=== PATIENT | female | born 1960 | race Caucasian/White ===

== ENCOUNTER 2019-04-13 13:30 | Outpatient (CLI) | payer MEDICARE, SELFPAY ==
--- NOTE | ~2019-04-13 | MM_ITS ---
EXAMINATION: MM screening kayla BI w mark HISTORY: Screening mammogram TECHNIQUE: Craniocaudal and mediolateral oblique 3-D tomosynthesis images were obtained and synthetic 2-D images were generated. CAD analysis was submitted and interpreted. COMPARISON: Comparison to multiple prior studies sequentially, with oldest reviewed study dated 11/14. BREAST PARENCHYMAL COMPOSITION: Comparison to multiple prior studies sequentially, with oldest review ed study dated 11/29/2014. FINDINGS: Breast composed of scattered areas of fibroglandular density. Stable postsurgical change mi d outer aspect of the right breast. There is no evidence of suspicious mass, calcification, or los ectural distortion to suggest malignancy in either breast. There has been no suspicious interval fabian ge. IMPRESSION: 1. No mammographic evidence of malignancy. 2. Recommend routine screening mammography in one year. BI-RADS Category 2: Benign finding(s). Reviewed, dictated and finalized at location A. 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
== END 2019-04-13 13:31 | disposition home or self-care (01) ==
PROVIDERS: PCP Family Medicine; Visit Provider Obstetrics & Gynecology
DX: Z12.31 Encounter for screening mammogram for malignant neoplasm of breast (principal)
CPT/HCPCS: 77063; 77067

== ENCOUNTER 2019-05-01 10:00 | Emergency (ER) | payer MEDICARE, SELFPAY ==
--- NOTE | ~2019-05-01 | XR_ITS ---
EXAMINATION: XR knee LT min 4V DATE: 05/01/2019 10:22 INDICATION: Anterior left knee pain post fall TECHNIQUE: Anteroposterior, 2 oblique and crosstable lateral views of the left knee were obtained COMPARISON: None. FINDINGS: Alignment is normal. No fracture. Tiny superior and inferior patellar marginal osteophytes. Small am ount of joint fluid at the suprapatellar pouch which is within normal limits and without evident laye ring lipohemarthrosis. Soft tissues are unremarkable. IMPRESSION: 1. No acute osseous abnormality. Reviewed, dictated and finalized at location A.
--- NOTE | ~2019-05-01 | XR_ITS ---
EXAMINATION: XR hand LT min 3V, XR wrist LT min 3V DATE: 05/01/2019 10:22 INDICATION: Diffuse left hand and wrist pain post fall TECHNIQUE: 1. Posteroanterior, ulnar deviation, oblique, and lateral views of the left wrist were obtained. 2. Dorsal palmar, oblique and lateral views of the left hand were obtained. COMPARISON: None. FINDINGS: Volar plate and screw fixation at the distal left radius likely for old healed fracture with no resid ual deformity. There is an acute minimally displaced fracture at the radial styloid process which is beyond the screws of the prior fixation. No significant fracture gap or incongruity appreciated at th e distal articular surface. There is mild widening of the scapholunate interval but no evident abnorm al rotatory subluxation of the scaphoid or lunate. Minimal to mild polyarticular osteoarthritis at th e distal radioulnar, triscaphe and multiple interphalangeal joints with distal predominance. Tiny oss ific density dorsal to the proximal carpal row without definitive donor site. Soft tissue swelling ab out the wrist and carpus. IMPRESSION: 1. Minimally displaced intra-articular fracture at the radial styloid process peripheral to a prior v olar plate and screw fixation. 2. Tiny ossific density at the dorsal aspect of the triquetrum which could represent either a chronic loose body or heterotopic ossification related to old trauma or acute tiny fracture fragment which a t this location would most likely arising from the triquetrum. 3. Slight widening of the scapholunate interval and could not exclude injury to the scapholunate liga ment although there is no evident rotatory subluxation of the scaphoid or lunate. Reviewed, dictated and finalized at location A. IMPRESSION: 1. Minimally displaced intra-articular fracture at the radial styloid process p eripheral to a prior volar plate and screw fixation. 2. Tiny ossific density at the dorsal aspect of the triquetrum which could repr esent either a chronic loose body or heterotopic ossification related to old tr auma or acute tiny fracture fragment which at this location would most likely a rising from the triquetrum. 3. Slight widening of the scapholunate interval and could not exclude injury to the scapholunate ligament although there is no evident rotatory subluxation of the scaphoid or lunate.
[2019-05-01 09:55] VITALS: BP 165/110; PULSE 58; RESP 16; TEMP 36.6; O2SAT 100
--- NOTE | 2019-05-01 10:07 | ED.UPPEXIN ---
HPI - Extremity Injury (Upper) General Chief Complaint: Extremity Injury, Upper Stated Complaint: fall - wrist deformity Time Seen by Provider: 05/01/19 10:05 Source: patient Mode of arrival: EMS Limitations: no limitations History of Present Illness HPI narrative: A 59 y/o female pt presents to the ED, via EMS with c/o a fall while walking her dog outside this morning. Pt stated she tripped and fell face forward. Pt notes an abrasion to her upper lip that was bleeding on scene, but has since subsided. She also reports pain to her lt wrist, lt hand, lt knee. outside walking her dog tripped and denies LOC lt wrist into hand into lt thumb lt knee pain denies anticoagulation therapy hx of DM, HTN, hypercholesteremia, abrasions to lt knee no smoking occ drink Related Data Home Medications Medication Instructions Recorded Confirmed loratadine 10 mg BYMOUTH DAILY 02/16/19 03/28/19 potassium chloride 20 meq PO DAILY 02/22/19 03/28/19 Allergies Allergy/AdvReac Type Severity Reaction Status Date / Time adhesive Allergy Unknown Blister Verified 05/01/19 10:05 ciprofloxacin Allergy Unknown Other Verified 05/01/19 10:05 hydroxychloroquine Allergy Unknown Hives Verified 05/01/19 10:05 ibuprofen Allergy Unknown Muscle Pain Verified 05/01/19 10:05 metronidazole Allergy Unknown Other Verified 05/01/19 10:05 Quinolones Allergy Unknown Hives Verified 05/01/19 10:05 [facility] Social History Social History Social History: The patient lives in her own home in [place], [place]. She smoked for only a few months as a teenager. She consumes alcohol rarely and on social occasions, in moderation. No illicit drug use. 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 Faisal as her surrogate decision maker and is wishing to be a full code. Smoking status: Former smoker Tobacco type: cigarettes Second hand tobacco smoke exposure: No Additional smoking assessment comments: Smoked for two months as teenager Alcohol intake: current Drinks per week: 0 Substance use: former Substance use type: does not use Other substance usage details: former marijuana use Gender identity (if verbalized by the patient): Female Spiritual care concerns: No Agree to blood products: Yes Course Vital Signs Vital signs: Vital Signs Temperature 97.8 F 05/01/19 09:55 Pulse Rate 58 L 05/01/19 09:55 Respiratory Rate 16 05/01/19 09:55 Blood Pressure 165/110 H 05/01/19 09:55 Pulse Oximetry 100 05/01/19 09:55 Temperature 97.8 F 05/01/19 09:55 Pulse Rate 58 L 05/01/19 09:55 Respiratory Rate 16 05/01/19 09:55 Blood Pressure 165/110 H 05/01/19 09:55 Pulse Oximetry 100 05/01/19 09:55 Discharge Plan Discharge Prescriptions: No Action furosemide [Lasix] 20 mg tablet 20 mg PO DAILY PRN (Reason: edema) Qty: 90 RF: 1 glipizide 5 mg tablet 5 mg PO DAILY Qty: 90 RF: 1 levothyroxine 88 mcg tablet 88 mcg PO DAILY Qty: 90 RF: 1 montelukast [Singulair] 10 mg tablet 10 mg PO DAILY Qty: 90 RF: 3 trazodone 50 mg tablet 50 mg PO HS PRN (Reason: insomnia) Qty: 90 RF: 1 loratadine tablet 10 mg BYMOUTH DAILY RF: 0 ipratropium-albuterol 0.5 mg-3 mg(2.5 mg base)/3 mL solution for nebulization 3 ml INHALATION Q4H PRN (Reason: shortness of breath or wheezing) Qty: 90 RF: 0 albuterol sulfate 2.5 mg/0.5 mL solution for nebulization 2.5 mg INHALATION Q4H PRN (Reason: shortness of breath or wheezing) Qty: 30 RF: 0 (DME) blood-glucose meter Kit See Rx Instructions .ROUTE .MEDSUPPLY Qty: 1 RF: 0 (DME) lancets 33 gauge misc See Rx Instructions .ROUTE .MEDSUPPLY Qty: 100 RF: 0 (DME) Blood Glucose Test Strip See Rx Instructions .ROUTE .MEDSUPPLY Qty: 50 RF: 0 potassium chloride 20 mEq Tablet Extended Release 20 meq PO DAILY RF: 0 atorvastatin 20 mg tablet 20 mg PO DAILY Qty: 90 RF: 1 pantoprazole
--- NOTE | 2019-05-01 10:58 | ED.FALL ---
HPI - Fall General Chief Complaint: Extremity Injury, Upper Stated Complaint: fall - wrist deformity Time Seen by Provider: 05/01/19 10:05 Source: patient Mode of arrival: EMS Limitations: no limitations History of Present Illness HPI Narrative: A 59 y/o female pt presents to the ED, via EMS with c/o a fall while walking her dog outside this morning. Pt stated she tripped and fell face forward. Pt notes an abrasion to her upper lip that was bleeding on scene, but has since subsided. She also reports pain to her lt wrist, lt hand, lt thumb, and pain and abrasions to her lt knee. Pt denies LOC, MONGE, neck pain, or any other injuries. She notes a PMHx of DM, HTN, and HLD, but denies being prescribed any anticoagulation therapy. MD complaint: fall Onset (ago): hour(s) Fall from: standing Place fall occurred: other (outside) Loss of consciousness: none Context: tripped/slipped Location of injury: face Location of injury - extremities: Left: hand (wrist, hand, thumb) and knee Associated symptoms (after fall): other (pain to lt hand, lt wrist, lt thumb, lt knee) Related Data Home Medications Medication Instructions Recorded Confirmed loratadine 10 mg BYMOUTH DAILY 02/16/19 03/28/19 potassium chloride 20 meq PO DAILY 02/22/19 03/28/19 Allergies Allergy/AdvReac Type Severity Reaction Status Date / Time adhesive Allergy Unknown Blister Verified 05/01/19 10:05 ciprofloxacin Allergy Unknown Other Verified 05/01/19 10:05 hydroxychloroquine Allergy Unknown Hives Verified 05/01/19 10:05 ibuprofen Allergy Unknown Muscle Pain Verified 05/01/19 10:05 metronidazole Allergy Unknown Other Verified 05/01/19 10:05 Quinolones Allergy Unknown Hives Verified 05/01/19 10:05 Review of Systems Review of Systems: All systems reviewed & are unremarkable except as noted in HPI and below Constitutional: Constitutional: Denies headache(s) Musculoskeletal: Musculoskeletal: Denies back pain, Denies neck pain and Reports other (pain to lt wrist, lt hand, lt thumb, lt knee) Integumentary/Breasts: Skin/Breast: Reports wounds (abrasions to lt knee, upper lip) Neurologic: Denies other (LOC) [facility] Past Medical History Medical History Anxiety Breast cancer Right-sided breast cancer in 2006 status post chemotherapy and radiation. Bulging discs Hiatal hernia with GERD History of MRSA infection Secondary to Port-A-Cath. Hyperlipidemia Hypertension (~2004) Hypothyroidism (~1994) Lupus Patient carried a diagnosis of systemic lupus erythematosus and was on methotrexate for some time. Apparently, they now believe that she does not have lupus and she is no longer on any medication for that. There was some concern that she may have underlying rheumatoid arthritis, however. Thrombocytosis Type 2 diabetes mellitus (~2016) Was 6.3 in May 2018. Surgical History Surgical History H/O dilation and curettage H/O laparoscopy H/O left wrist surgery History of appendectomy . History of foot surgery Right foot 2nd digit surgery. History of right knee surgery Repair of meniscal tear. History of total abdominal hysterectomy and bilateral salpingo-oophorectomy Hx of cholecystectomy . Hx of tonsillectomy Status post right breast lumpectomy In 1999 for breast cancer. Social History Social History Social History: The patient lives in her own home in [place], [place]. She smoked for only a few months as a teenager. She consumes alcohol rarely and on social occasions, in moderation. No illicit drug use. 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 Faisal as her surrogate decision maker and is wishing to be a full code. Smoking status: Former smoker Tobacco type: cigarettes Second hand tobacco smoke exposure: No Additional smoking assessment comments: Smoked for two months as t
--- NOTE | 2019-05-01 11:01 | PC.NURSE ---
PT REPORT GIVEN TO SAIRA KHALIL AT THIS TIME, SHE HAS ASSUMED PT CARE.
[2019-05-01] MEDS: IBUPROFEN 600 MG TABLET PO (11:29)
[2019-05-01] MEDS: ONDANSETRON HCL ODT 4 MG TABLET PO (11:31)
[2019-05-01 11:42] VITALS: BP 159/92; PULSE 78; RESP 16; O2SAT 100
== END 2019-05-01 11:43 | disposition home or self-care (01) ==
PROVIDERS: Emergency Provider Emergency Medicine; PCP Family Medicine
DX: S52.512A Displaced fracture of left radial styloid process, initial encounter for closed fracture (principal); Y93.K1 Activity, walking an animal; Z85.3 Personal history of malignant neoplasm of breast; Z92.21 Personal history of antineoplastic chemotherapy; Z92.3 Personal history of irradiation; K21.9 Gastro-esophageal reflux disease without esophagitis; Z86.14 Personal history of Methicillin resistant Staphylococcus aureus infection; I10 Essential (primary) hypertension; E78.5 Hyperlipidemia, unspecified; E03.9 Hypothyroidism, unspecified; E11.9 Type 2 diabetes mellitus without complications; Z79.84 Long term (current) use of oral hypoglycemic drugs; F41.9 Anxiety disorder, unspecified; W01.0XXA Fall on same level from slipping, tripping and stumbling without subsequent striking against object, initial encounter
CPT/HCPCS: 73110; 73130; 73564; 99284; A4565; A9270

== ENCOUNTER 2019-06-22 09:22 | Outpatient (CLI) | payer MEDICARE, SELFPAY ==
--- NOTE | 2019-06-22 10:52 | PCRCNOTE ---
PT DID NOT HAVE A PFT DONE YET, METHACHOLINE CHALLENGE TO BE DONE AFTER PFT IS COMPLETED IF NEEDED
--- NOTE | 2019-06-24 20:56 | WPDPFTINT ---
PFT Interpretation PFT Interpretation: DOS: 06/22/2019 REQUESTING: Dr Suresh REASON FOR TESTING: Shortness of breath PULMONARY FUNCTION TESTS Results are reliable and reproducible. Spirometry: FEV1 97%, normal. FVC is 85%, normal. FEV1% is normal. No change with bronchodilator. Lung volumes: TLC 87%, normal. RV 86%, normla. Increased airway resistance 197%. Diffusion: DLCO mildly decreased 61%. Flow volume loop: Normal. IMPRESSION: Normal spirometry, lung volumes with mild decreased in DLCO. The low DLCO is the main abnormality. Isolated decrease in DLCO can be seen in early ILD, collagen vascular disease with pulmonary vascular involvement, chronic thromboembolic disease, anemia and other conditions. Clinical correlation is advised. Shasha Sanders MD
== END 2019-06-22 09:23 | disposition home or self-care (01) ==
PROVIDERS: PCP Family Medicine
DX: J45.909 Unspecified asthma, uncomplicated (principal)
CPT/HCPCS: 94060; 94726; 94729; J7674

== ENCOUNTER 2019-08-10 12:40 | Outpatient (CLI) | payer MEDICARE, SELFPAY ==
--- NOTE | ~2019-08-10 | NM_ITS ---
EXAMINATION: NM pulmonary perfusion DATE: 08/10/2019 13:57 INDICATION: Abnormal results of pulmonary function studies TECHNIQUE: 5.5 mCi Tc-99m MAA was administered intravenously for perfusion images. Scintigraphic imag es of the chest were obtained. COMPARISON: None FINDINGS: Perfusion images show normal perfusion. IMPRESSION: 1. Low probability for pulmonary embolism. Reviewed, dictated and finalized at location A.
--- NOTE | ~2019-08-10 | XR_ITS ---
EXAMINATION: XR chest 2V EXAM DATE: 08/10/2019 13:02 INDICATION: Shortness of breath. TECHNIQUE: Frontal and lateral projections of the chest obtained and reviewed. Comparison is made to prior examination from 02/22/2019. FINDINGS: The lungs are clear. There are no pleural effusions. The cardiomediastinal silhouette is within normal limits. There is no pneumothorax suspected. The bones and soft tissues are unremarkab le. There are cholecystectomy clips. There is no significant interval change. IMPRESSION: No acute cardiopulmonary findings. Reviewed, dictated and finalized at location B.
== END 2019-08-10 12:41 | disposition home or self-care (01) ==
PROVIDERS: PCP Family Medicine; Visit Provider Internal Medicine Critical Care Medicine
DX: B99.9 Unspecified infectious disease (principal); R94.2 Abnormal results of pulmonary function studies
CPT/HCPCS: 71046; 78580; A9540

== ENCOUNTER 2019-08-28 12:34 | Outpatient (CLI) | payer MEDICARE, SELFPAY ==
--- NOTE | 2019-08-30 10:34 | WPDPFTINT ---
PFT Interpretation PFT Interpretation: DOS: 08/28/2019 REQUESTING: Shasha Sanders MD REASON FOR TESTING: shortness of breath METHACHOLINE CHALLENGE This test was conducted per ATS guidelines. A previous study on 06/22/2019 showed normal spirometry. The patient was exposed to sequentially increasing doses of methacholine in the usual manner. Level 1 - saline Level 2 - 0.025 mg Level 3 - 0.25 mg Level 4 - 2.5 mg Level 5 - 10 mg Level 6 - 25 mg The test was stopped after the 6th and final dose of methacholine 25mg. At this dose, the FEV1 dropped by 25%. A decrease of 20% in the FEV1 is a positive result, and the testing is terminated. Flows returned to normal after bronchodilator was administered. IMPRESSION: This is a mildly positive methacholine challenge with the PD20 of 25 mg on the 6th dose. The best use for a methacholine challenge is to rule out asthma. Clinical correlation is advised. Shasha Sanders MD
== END 2019-08-28 12:35 | disposition home or self-care (01) ==
PROVIDERS: PCP Family Medicine; Visit Provider Internal Medicine Critical Care Medicine
DX: J45.909 Unspecified asthma, uncomplicated (principal); R94.2 Abnormal results of pulmonary function studies
CPT/HCPCS: 94070; J7674

== ENCOUNTER 2019-09-12 09:15 | Outpatient (RCR) | payer MEDICARE, SELFPAY | END 2019-09-17 23:59 | disposition home or self-care (01) | LOC: ANHDMC 09:15 | PROVIDERS: PCP Family Medicine; Visit Provider Family Medicine | DX: E11.9 Type 2 diabetes mellitus without complications (principal); Z71.89 Other specified counseling | CPT/HCPCS: 99199; G0108 ==

== ENCOUNTER 2019-09-14 11:46 | Outpatient (CLI) | payer MEDICARE, SELFPAY ==
[2019-09-14 12:30] LABS: Basophils Percent Auto 0.4 % (0.2-1.2); Eosinophils Absolute Auto 0.3 K/mm3 (0-0.3); Eosinophils Percent Auto 4.3 % (0-4.4); Hematocrit 44.2 % (37.0-47.0); Immature Granulocyte Absolute 0.05 K/mm3 (0.00-0.031); Immature Granulocyte Percent A 0.7 % (0-0.5); Lymphocytes Absolute Auto 1.05 K/mm3 (0.9-3.2); Lymphocytes Percent Auto 13.8 % (18.3-44.2); Mean Corpuscular HGB Conc 31.7 g/dl (32-36); Mean Corpuscular Hemoglobin 23.5 pg (26-34); Mean Corpuscular Volume 74.3 fl (80-100); Mean Platelet Volume 9.1 fl (7.4-10.4); Monocytes Absolute Auto 0.7 K/mm3 (0.1-0.6); Monocytes Percent Auto 9.2 % (2.6-8.5); Neutrophils Absolute Auto 5.4 K/mm3 (1.3-6.7); Neutrophils Percent Auto 71.6 % (45.5-73.1); Platelet Count Result 567 k/mm3 (150-375); Red Blood Count 5.95 M/mm3 (4.2-5.4); Red Cell Distribution Width 20.3 % (11.5-14.5); White Blood Count 7.6 K/mm3 (4.5-10.0)
[2019-09-14 12:39] LABS: Hemoglobin A1C 5.9 % (<5.7)
[2019-09-14 12:45] LABS: Alanine Aminotransferase 38 U/L (4-35); Albumin Level 4.8 g/dL (3.5-5.1); Alkaline Phosphatase 92 U/L (38-126); Anion Gap 14.1 mmol/L (7-16); Aspartate Amino Transferase 43 U/L (14-36); Bilirubin,Total 1.1 mg/dL (0.2-1.3); Blood Urea Nitrogen 21 mg/dL (7-17); Calcium 9.5 mg/dL (8.4-10.2); Carbon Dioxide 26 mmol/L (22-30); Chloride 103 mmol/L (98-107); Cholesterol 118 mg/dL (0-200); Estimated Glomerular Filt Rate > 60; Glucose 116 mg/dL (65-105); HDL Direct 33 mg/dL; Potassium 4.1 mmol/L (3.4-5.0); Sodium 139 mmol/L (137-145); Triglycerides 179 mg/dL (<150)
[2019-09-14 12:56] LABS: LDL Cholesterol Direct 43 mg/dL
== END 2019-09-14 11:47 | disposition home or self-care (01) ==
LOC: ANHLAB 11:47
PROVIDERS: PCP Nurse Practitioner Family; Visit Provider Nurse Practitioner Family
DX: E11.9 Type 2 diabetes mellitus without complications (principal); F41.9 Anxiety disorder, unspecified; I10 Essential (primary) hypertension
CPT/HCPCS: 36415; 80053; 80061; 83036; 85025

== ENCOUNTER 2019-10-26 11:45 | Emergency (ER) | payer MEDICARE, SELFPAY ==
--- NOTE | ~2019-10-26 | XR_ITS ---
XR hand LT min 3V DATE: 10/26/2019 12:48 INDICATION: Dog bite 2 days ago. Pain at second and fifth digits TECHNIQUE: 3 views COMPARISON: None FINDINGS: There is a plate and screws along the distal radius. No fracture, dislocation, periosteal reaction or bone destruction is detected. No erosive changes or chondrocalcinosis. No subcutaneous emphysema or radiopaque foreign body is detected. IMPRESSION: Postoperative change of distal radius; no acute finding Reviewed, dictated and finalized at location A.
[2019-10-26 12:21] VITALS: BP 145/101; PULSE 67; RESP 16; TEMP 36.3; O2SAT 100
--- NOTE | 2019-10-26 12:35 | ED.WOUNDLAC ---
HPI - Wound/Laceration General Chief Complaint: Wound/Laceration Stated Complaint: Dog bite/finger injury Time Seen by Provider: 10/26/19 12:35 Source: patient Mode of arrival: ambulatory Limitations: no limitations History of Present Illness HPI narrative: Steph Sharpe is a 59 yo female with a PMH of diabetes, high cholesterol, and HTN, seasonal, difficulty sleeping, comes to express care with a pinpoint bite elena on her left hand from Tuesday when her dog bit her during an altercation with another dog on the street. States she is unsure if it was really her dog that bit her but she believes it was. Has not had a tetanus shot recently; also has some stiffness and movement of the fingers Related Data Allergies Allergy/AdvReac Type Severity Reaction Status Date / Time adhesive Allergy Unknown Blister Verified 07/27/19 14:33 ciprofloxacin Allergy Unknown Other Verified 07/27/19 14:33 hydroxychloroquine Allergy Unknown Hives Verified 07/27/19 14:33 ibuprofen Allergy Unknown Muscle Pain Verified 07/27/19 14:33 metronidazole Allergy Unknown Other Verified 07/27/19 14:33 Quinolones Allergy Unknown Hives Verified 07/27/19 14:33 Review of Systems Review of Systems: Narrative: CONSTITUTIONAL: Denies fever, chills, sweats. EYES: Denies visual changes, redness, discharge. ENT: Denies rhinorrhea, congestion, sore throat, otalgia. CARDIOVASCULAR: Denies chest pain, palpitations, edema. RESPIRATORY: Denies dyspnea, wheezing, cough GASTROINTESTINAL: Denies abdominal pain, nausea, vomiting, diarrhea. GENITOURINARY: Denies dysuria, hematuria, abnormal discharge SKIN: Denies rash or itching. NEUROLOGIC: Denies numbness, or focal weakness. PSYCHIATRIC: Denies anxiety or depression. Left hand puncture harper in the base of finger for with stiffness of finger 5 and finger two left hand PMFSH Past Medical History Medical History Anxiety Breast cancer Right-sided breast cancer in 2006 status post chemotherapy and radiation. Bulging discs Hiatal hernia with GERD History of MRSA infection Secondary to Port-A-Cath. Hyperlipidemia Hyperlipidemia Hypertension (~2004) Hypothyroidism (~1994) Insomnia Lupus Patient carried a diagnosis of systemic lupus erythematosus and was on methotrexate for some time. Apparently, they now believe that she does not have lupus and she is no longer on any medication for that. There was some concern that she may have underlying rheumatoid arthritis, however. Recurrent infections Thrombocytosis Type 2 diabetes mellitus (~2017) Was 6.3 in May 2018. Surgical History Surgical History H/O dilation and curettage H/O laparoscopy H/O left wrist surgery History of appendectomy . History of foot surgery Right foot 2nd digit surgery. History of right knee surgery Repair of meniscal tear. History of total abdominal hysterectomy and bilateral salpingo-oophorectomy Hx of cholecystectomy . Hx of tonsillectomy Status post right breast lumpectomy In 1999 for breast cancer. Family History Family History Mother Family history of blood dyscrasia Father Family history of heart disease in male family member before age 55 Family history of elevated blood lipids Family history of coronary artery disease Carcinoma of colon Hypertension Grandparent Diabetes mellitus Sibling Acute Crohn's disease Other Family history of congenital heart disease Family history of diabetes mellitus in first degree relative Family history of malignant neoplasm Family history of malignant neoplasm of breast in first degree relative Family history of rheumatoid arthritis Social History Social History Social History: The patient lives in her own home in [place], [place]. She smoked for only a few
[2019-10-26] MEDS: TETANUS,DIPHTHERIA,AC PERTUSSIS ADULT (0.5 ML) BOOSTRIX IM (12:52)
== END 2019-10-26 13:05 | disposition home or self-care (01) ==
PROVIDERS: Emergency Provider Nurse Practitioner
DX: S61.432A Puncture wound without foreign body of left hand, initial encounter (principal); W54.0XXA Bitten by dog, initial encounter; M79.642 Pain in left hand; Z23 Encounter for immunization; Z87.891 Personal history of nicotine dependence; F41.9 Anxiety disorder, unspecified; Z85.3 Personal history of malignant neoplasm of breast; Z92.21 Personal history of antineoplastic chemotherapy; Z92.3 Personal history of irradiation; Z86.14 Personal history of Methicillin resistant Staphylococcus aureus infection; E78.5 Hyperlipidemia, unspecified; I10 Essential (primary) hypertension; E03.9 Hypothyroidism, unspecified; E11.9 Type 2 diabetes mellitus without complications; M32.9 Systemic lupus erythematosus, unspecified
CPT/HCPCS: 73130; 90471; 90715; 99213; G0463

== ENCOUNTER 2020-02-18 08:56 | Outpatient (CLI) | payer MEDICARE, SELFPAY ==
[2020-02-18 09:27] LABS: Hematocrit 40.5 % (37.0-47.0); Mean Corpuscular HGB Conc 29.6 g/dl (32-36); Mean Corpuscular Hemoglobin 21.1 pg (26-34); Mean Corpuscular Volume 71.2 fl (80-100); Mean Platelet Volume 8.7 fl (7.4-10.4); Platelet Count Result 451 k/mm3 (150-375); Red Blood Count 5.69 M/mm3 (4.2-5.4); Red Cell Distribution Width 19.6 % (11.5-14.5); White Blood Count 6.4 K/mm3 (4.5-10.0)
[2020-02-18 09:43] LABS: Alanine Aminotransferase 30 U/L (4-35); Albumin Level 4.3 g/dL (3.5-5.1); Alkaline Phosphatase 76 U/L (38-126); Anion Gap 7 mmol/L (8-16); Aspartate Amino Transferase 38 U/L (14-36); Bilirubin,Total 0.7 mg/dL (0.2-1.3); Blood Urea Nitrogen 34 mg/dL (7-17); Calcium 9.1 mg/dL (8.4-10.2); Carbon Dioxide 30 mmol/L (22-30); Chloride 104 mmol/L (98-107); Cholesterol 130 mg/dL (0-200); Estimated Glomerular Filt Rate > 60; Glucose 112 mg/dL (65-105); HDL Direct 41 mg/dL; Potassium 4.1 mmol/L (3.4-5.0); Sodium 141 mmol/L (137-145); Triglycerides 160 mg/dL (<150)
[2020-02-18 09:54] LABS: Basophils Absolute Manual 0.06 K/mm3 (0.0-0.1); Basophils Percent Manual 1 % (0-1); Eosinophils Absolute Manual 0.32 K/mm3 (0.02-0.5); Eosinophils Percent Manual 5 % (0-4); LDL Cholesterol Direct 40 mg/dL; Lymphocytes Absolute Manual 0.83 K/mm3 (1.1-4.5); Monocytes Absolute Manual 0.19 K/mm3 (0.1-0.90); Monocytes Percent Manual 3 % (3-9); Neutrophils Percent Manual 78 % (46-73); Platelet Estimate Increased (Adequate); Total Cells Counted 100
[2020-02-18 09:55] LABS: Anisocytosis 1+ (NORMAL); Hypochromasia 1+ (NORMAL); Large Platelets Present; Ovalocytes 1+ (NORMAL)
[2020-02-18 11:08] LABS: Vitamin D 25 Hydroxy 50.4 ng/mL
== END 2020-02-18 08:57 | disposition home or self-care (01) ==
PROVIDERS: PCP Family Medicine; Visit Provider Nurse Practitioner
DX: E78.5 Hyperlipidemia, unspecified (principal); I10 Essential (primary) hypertension; E55.9 Vitamin D deficiency, unspecified; E03.9 Hypothyroidism, unspecified
CPT/HCPCS: 36415; 80053; 80061; 82306; 84443; 85025

== ENCOUNTER 2020-03-03 09:16 | Outpatient (CLI) | payer MEDICARE, SELFPAY ==
[2020-03-03 09:53] LABS: Hemoglobin A1C 5.2 % (<5.7)
== END 2020-03-03 09:17 | disposition home or self-care (01) ==
PROVIDERS: PCP Family Medicine; Visit Provider Nurse Practitioner Family
DX: E11.9 Type 2 diabetes mellitus without complications (principal)
CPT/HCPCS: 36415; 83036

== ENCOUNTER → 2020-03-28 09:10 | Outpatient (CLI) | payer MEDICARE, SELFPAY ==
[2020-03-29 19:48] LABS: SARS-CoV-2 RNA PCR Negative
== END ==
PROVIDERS: PCP Family Medicine; Visit Provider Nurse Practitioner
DX: Z20.822 Contact with and (suspected) exposure to COVID-19 (principal)
CPT/HCPCS: C9803; U0003; U0005

== ENCOUNTER 2020-04-14 09:13 | Outpatient (CLI) | payer MEDICARE, SELFPAY ==
--- NOTE | ~2020-04-14 | MM_ITS ---
EXAMINATION: MM screening [facility] BI w mark HISTORY: Screening TECHNIQUE: Craniocaudal and mediolateral oblique 3-D tomosynthesis images were obtained and synthetic 2-D images were generated. CAD analysis was submitted and interpreted. COMPARISON: Comparison to multiple prior studies sequentially, with oldest reviewed study dated 11/14. BREAST PARENCHYMAL COMPOSITION: Breast composed of scattered areas of fibroglandular density. FINDINGS: There are benign breast calcifications. There is no evidence of suspicious mass, calcificat ion, or architectural distortion to suggest malignancy in either breast. There has been no suspicious interval change. IMPRESSION: 1. No mammographic evidence of malignancy. 2. Recommend routine screening mammography in one year. BI-RADS Category 2: Benign finding(s). Reviewed, dictated and finalized at location A. 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
== END 2020-04-14 09:14 | disposition home or self-care (01) ==
LOC: ANHIMG 09:17
PROVIDERS: PCP Family Medicine; Visit Provider Obstetrics & Gynecology
DX: Z12.31 Encounter for screening mammogram for malignant neoplasm of breast (principal)
CPT/HCPCS: 77063; 77067

== ENCOUNTER 2020-04-25 15:16 | Outpatient (CLI) | payer MEDICARE, SELFPAY ==
[2020-04-25 16:22] LABS: Erythrocyte Sedimentation Rate 4 mm/hr (0-20)
[2020-04-25 17:30] LABS: CRP < 0.5 mg/dL (<1.0)
== END 2020-04-25 15:17 | disposition home or self-care (01) ==
LOC: ANHLAB 15:30
PROVIDERS: PCP Family Medicine
DX: H47.012 Ischemic optic neuropathy, left eye (principal)
CPT/HCPCS: 36415; 85652; 86140

== ENCOUNTER 2020-05-22 17:08 | Outpatient (CLI) | payer MEDICARE, SELFPAY ==
[2020-05-22 17:44] LABS: Anion Gap 8 mmol/L (8-16); Blood Urea Nitrogen 35 mg/dL (7-17); Calcium 9.4 mg/dL (8.4-10.2); Carbon Dioxide 30 mmol/L (22-30); Chloride 102 mmol/L (98-107); Estimated Glomerular Filt Rate > 60; Glucose 104 mg/dL (65-105); Magnesium 1.9 mg/dL (1.6-2.3); Potassium 4.2 mmol/L (3.4-5.0); Sodium 140 mmol/L (137-145)
== END 2020-05-22 17:09 | disposition home or self-care (01) ==
LOC: ANHLAB 17:11
PROVIDERS: PCP Family Medicine; Visit Provider Internal Medicine Cardiovascular Disease
DX: I10 Essential (primary) hypertension (principal)
CPT/HCPCS: 36415; 80048; 83735

== ENCOUNTER 2020-06-02 09:34 | Outpatient (CLI) | payer MEDICARE, SELFPAY ==
--- NOTE | 2020-06-02 09:40 | ECHO_ITS ---
Patient Info Name: Steph Sharpe Age: 60 years : 1960 Gender: Female Ht: 60 in Wt: 145 lbs BSA: 1.69 m2 HR: 63 bpm BP: 152 / 78 mmHg Technical Quality: Good Exam Date: 06/02/2020 9:49 AM Exam Location: [facility] Patient Status: Outpatient Admit Date: 06/02/2020 Staff Ordering Physician: Ubaldo Ya DO Human Resources Specialist: Milli Sylvester RDCS Attending Provider: Ubaldo Ya DO Referring Physician: Felton HARDY; Exam Type: CA echo doppler color flow Study Info Indications R06.00 - Dyspnea, unspecified Complete two-dimensional, color flow and Doppler transthoracic echocardiogram is performed. Summary 1. Complete two-dimensional, color flow and Doppler transthoracic echocardiogram is performed. 2. Left ventricular chamber dimension is normal. 3. Left ventricular systolic function is normal, estimated at 60-65%. 4. The left ventricular diastolic function is grade II diastolic dysfunction. 5. E/e' 11 is mildly elevated. 6. Global longitudinal strain is abnormal at -15.5%. 7. Left atrial chamber dimension is mildly enlarged. 8. There is mild mitral valve regurgitation. 9. There is trace tricuspid valve regurgitation. 10. No pulmonary hypertension, estimated pulmonary arterial systolic pressure is 37 mmHg. Left Ventricle E/e' 11 is mildly elevated. Global longitudinal strain is abnormal at -15.5%. Left ventricular chamber dimension is normal. Left ventricular systolic function is normal, estimated at 60-65%. The left ventricular diastolic function is grade II diastolic dysfunction. Right Ventricle Right ventricular chamber dimension is normal. Right ventricular systolic function is normal. Left Atria Left atrial chamber dimension is mildly enlarged. Right Atria Right atrial chamber dimension is normal. Aortic Valve The aortic valve is trileaflet. There is no aortic valve stenosis. There is no aortic valve regurgitation. Pulmonic Valve There is no pulmonic regurgitation. Mitral Valve There is no mitral valve stenosis. There is mild mitral valve regurgitation. Tricuspid Valve There is trace tricuspid valve regurgitation. No pulmonary hypertension, estimated pulmonary arterial systolic pressure is 37 mmHg. Pericardium/Pleural There is no pericardial effusion. Inferior Vena Cava Normal inferior vena cava with >50% collapse upon inspiration consistent with normal right atrial pressure, 5 mmHg. Aorta The aortic root size at the sinus of Valsalva is normal. Left Ventricular Outflow Tract Name Value Normal LVOT 2D LVOT Diameter 1.9 cm LVOT Doppler LVOT Peak Gradient 3 mmHg LVOT Mean Gradient 2 mmHg LVOT VTI 25 cm LVOT VTI/AV VTI Ratio 0.8 LVOT Stroke Volume 71 ml LVOT CO 4.6 l/min LVOT CI 2.7 l/min/m2 Pulmonic Valve Name Value Normal
--- NOTE | 2020-06-02 09:40 | EST_ITS ---
Patient Info Name: Steph Sharpe Age: 60 years : 1960 Gender: Female Ht: 60 in Wt: 145 lbs BSA: 1.69 m2 Heart Rhythm: Sinus Rhythm Exam Date: 06/02/2020 11:42 AM Exam Location: [facility] Pulmonary Exam Room: [facility] Stress Patient Status: Outpatient Admit Date: 06/02/2020 Staff Ordering Physician: Ubaldo Ya DO Visual Inspector: Carina Muñoz RDCS Attending Provider: Exercise Technologist: Leah Marquez CT Exercise Physician: Ubaldo Ya DO Exam Type: CA stress echo Study Info Indications R07.9 - Chest pain, unspecified R06.00 - Dyspnea, unspecified Treadmill exercise stress echocardiogram is performed. Summary 1. 1. Negative Agus exercise stress test for ischemic ST changes by ECG criteria. 2. 2. Good functional capacity, achieving 10 METs of workload. 3. 3. Appropriate HR response to exercise. 4. 4. Appropriate HR recovery at 1 minute post exercise. 5. 5. Negative stress echocardiogram for ischemia by wall motioni analysis. 6. 6. Patient informed of the above results. Stress Echo Findings Left Ventricle Appropriate increase in LV endocardial thickening with systole. Appropriate augmentation of contractility with systole. No wall motion abnormality. Left Ventricle Normal LV systolic function, no wall motion abnormality. Protocol: Agus Stress ECG Details Stage: REST Duration (min): 0 min : 56 sec Speed (mph): 0.0 Grade (%): 0 HR (bpm): 60 SBP (mmHg): 115 DBP (mmHg): 60 METS: --- Stage: REST Duration (min): 7 min : 51 sec Speed (mph): 0.0 Grade (%): 0 HR (bpm): 63 SBP (mmHg): 115 DBP (mmHg): 60 METS: --- Stage: STAGE 1 Duration (min): 1 min : 0 sec Speed (mph): 1.7 Grade (%): 10 HR (bpm): 84 SBP (mmHg): 115 DBP (mmHg): 60 METS: --- Stage: STAGE 1 Duration (min): 2 min : 0 sec Speed (mph): 1.7 Grade (%): 10 HR (bpm): 96 SBP (mmHg): 115 DBP (mmHg): 60 METS: --- Stage: STAGE 1 Duration (min): 3 min : 0 sec Speed (mph): 1.7 Grade (%): 10 HR (bpm): 97 SBP (mmHg): 154 DBP (mmHg): 66 METS: --- Stage: STAGE 2 Duration (min): 1 min : 0 sec Speed (mph): 2.5 Grade (%): 12 HR (bpm): 102 SBP (mmHg): 154 DBP (mmHg): 66 METS: --- Stage: STAGE 2 Duration (min): 2 min : 0 sec Speed (mph): 2.5 Grade (%): 12 HR (bpm): 106 SBP (mmHg): 156 DBP (mmHg): 78 METS: --- Stage: STAGE 2 Duration (min): 3 min : 0 sec Speed (mph): 2.5 Grade (%): 12 HR (bpm): 112 SBP (mmHg): 156 DBP (mmHg): 78 METS: --- Stage: STAGE 3 Duration (min): 1 min : 0 sec Speed (mph): 3.4 Grade (%): 14 HR (bpm): 127 SBP (mmHg): 107 DBP (mmHg): 74 METS: --- Stage: STAGE 3 Duration (min): 2 min : 0 sec Speed (mph): 3.4 Grade (%): 14 HR (bpm): 134 SBP (mmHg): 107 DBP (mmHg): 74 METS: --- Stage: STAGE 3 Duration (min): 2 min : 27 sec Spe
== END 2020-06-02 09:35 | disposition home or self-care (01) ==
PROVIDERS: PCP Family Medicine; Visit Provider Internal Medicine Cardiovascular Disease
DX: R07.89 Other chest pain (principal); R06.00 Dyspnea, unspecified; I34.0 Nonrheumatic mitral (valve) insufficiency
CPT/HCPCS: 93306; 93351

== ENCOUNTER 2021-04-01 12:18 | Outpatient (CLI) | payer MEDICARE, SELFPAY ==
--- NOTE | 2021-04-01 | ECG_ITS ---
Measurements Intervals Chauncey Rate: 49 P: 36 [place]: 135 QRS: -16 QRSD: 102 T: 18 QT: 437 QTc: 398 Interpretive Statements SINUS BRADYCARDIA VOLTAGE CRITERIA FOR LVH BORDERLINE R WAVE PROGRESSION, ANTERIOR LEADS ABNORMAL ECG Electronically Signed On 04-01-2021 14:20:51 [employer] by Ubaldo Ya D.O.
[2021-04-01 13:06] LABS: Albumin Level 4.5 g/dL (3.5-5.1); Estimated Glomerular Filt Rate > 60; Glucose 95 mg/dL (65-110)
[2021-04-01 13:20] LABS: Hemoglobin A1C 5.2 % (<5.7)
== END 2021-04-01 12:19 | disposition home or self-care (01) ==
PROVIDERS: PCP Family Medicine; Visit Provider Orthopaedic Surgery
DX: Z01.818 Encounter for other preprocedural examination (principal); M16.12 Unilateral primary osteoarthritis, left hip; E78.5 Hyperlipidemia, unspecified; I10 Essential (primary) hypertension; E03.9 Hypothyroidism, unspecified; R94.31 Abnormal electrocardiogram [ECG] [EKG]
CPT/HCPCS: 36415; 82040; 82565; 82947; 83036; 85014; 85018; 93005

== ENCOUNTER 2021-04-30 10:42 | Outpatient (CLI) | payer MEDICARE, SELFPAY ==
--- NOTE | ~2021-04-30 | MM_ITS ---
EXAMINATION: MM screening kayla BI w mark HISTORY: Screening mammogram, history of right breast cancer TECHNIQUE: Craniocaudal and mediolateral oblique 3-D tomosynthesis images were obtained and synthetic 2-D images were generated. CAD analysis was submitted and interpreted. COMPARISON: 04/14/2020, 04/05/2019, 1119 BREAST PARENCHYMAL COMPOSITION: There are scattered areas of fibroglandular density. FINDINGS: There are stable lumpectomy changes in the outer right breast. There is no suspicious mass, calcification, or architectural distortion to suggest malignancy in either breast. There has been no suspicious interval change. IMPRESSION: 1. No mammographic evidence of malignancy. 2. Recommend routine screening mammography in one year. BI-RADS Category 2: Benign finding(s). Reviewed, dictated and finalized at location A.
== END 2021-04-30 10:43 | disposition home or self-care (01) ==
PROVIDERS: PCP Family Medicine; Visit Provider Family Medicine
DX: Z12.31 Encounter for screening mammogram for malignant neoplasm of breast (principal)
CPT/HCPCS: 77063; 77067

== ENCOUNTER 2021-05-21 11:36 | Outpatient (CLI) | payer MEDICARE, SELFPAY ==
[2021-05-21 13:24] LABS: Basophils Percent Auto 0.4 % (0.2-1.2); Eosinophils Absolute Auto 0.3 K/mm3 (0-0.3); Eosinophils Percent Auto 4.1 % (0-4.4); Hematocrit 48.2 % (37.0-47.0); Hemoglobin 15.9 g/dL (12.0-15.0); Immature Granulocyte Absolute 0.04 K/mm3 (0.00-0.031); Immature Granulocyte Percent A 0.5 % (0-0.5); Lymphocytes Absolute Auto 1.11 K/mm3 (0.9-3.2); Lymphocytes Percent Auto 14.6 % (18.3-44.2); Mean Corpuscular Hemoglobin 29.2 pg (26-34); Mean Corpuscular Volume 88.4 fl (80-100); Mean Platelet Volume 8.7 fl (7.4-10.4); Monocytes Absolute Auto 0.6 K/mm3 (0.1-0.6); Monocytes Percent Auto 8.1 % (2.6-8.5); Neutrophils Absolute Auto 5.5 K/mm3 (1.3-6.7); Neutrophils Percent Auto 72.3 % (45.5-73.1); Platelet Count Result 486 k/mm3 (150-375); Red Blood Count 5.45 M/mm3 (4.2-5.4); Red Cell Distribution Width 14.9 % (11.5-14.5); White Blood Count 7.6 K/mm3 (4.5-10.0)
[2021-05-21 13:30] LABS: Albumin Level 4.9 g/dL (3.5-5.1)
[2021-05-21 13:34] LABS: Anion Gap 6 mmol/L (8-16); Blood Urea Nitrogen 17 mg/dL (7-17); Calcium 9.4 mg/dL (8.4-10.2); Carbon Dioxide 31 mmol/L (22-30); Chloride 102 mmol/L (98-107); Estimated Glomerular Filt Rate > 60; Glucose 110 mg/dL (65-110); Potassium 3.8 mmol/L (3.4-5.0); Sodium 139 mmol/L (137-145)
[2021-05-21 14:09] LABS: Urine Cotinine NEGATIVE
== END 2021-05-21 11:37 | disposition home or self-care (01) ==
LOC: ANHSURGERY 11:41
PROVIDERS: Anesthesiology; PCP Family Medicine; Visit Provider Orthopaedic Surgery
DX: Z01.818 Encounter for other preprocedural examination (principal); M16.12 Unilateral primary osteoarthritis, left hip; E11.9 Type 2 diabetes mellitus without complications
CPT/HCPCS: 80048; 80307; 82040; 83036; 85025; 87081

== ENCOUNTER 2021-06-16 13:23 | Observation (INO) | payer MEDICARE, MEDICAID, SELFPAY ==
[2021-05-21 12:15] VITALS: BP 160/77; PULSE 58; RESP 16; TEMP 36.3; O2SAT 100; BMI 31.5
--- NOTE | 2021-05-21 12:36 | PC.NURSE ---
Report to the Outpatient Waiting Room, entrance under the green pavilion located off [facility], at time __10:00AM on date __06/15/21 . OR Time: ___12:00PM . - You and your visitor will be asked a series of questions to screen for COVID 19 for your protection. - A mask is required within the hospital. Preoperative COVID Testing Requirements: No COVID Test needed if: (proof is required; if not received patient will have Rapid Test prior to entry) - Patient has received COVID Vaccine at least 14 days prior to procedure date or - Patient has positive COVID test result within last 90 days of surgery date. COVID Test needed if above criteria is not met If not COVID vaccinated a COVID test must be conducted within 72 hours of surgery and patient is asked to isolate self from time of testing until procedure. You will go to the [facility] for your COVID testing. The [facility] is located at the corner of [address] from [facility]. You will only be called if COVID results are positive and your surgeon may reschedule your elective surgery date. Patients may have clear liquids (water, carbonated beverages, clear teas, apple juice) until 3 hours prior to surgery with a maximum of 20 ounces. - No food from midnight until time of surgery - Infants may have breast milk until 4 hours before surgery, formula 6 hours prior to surgery. - Children will be allowed to drink immediately following surgery. If applicable, please bring a bottle or sippy cup to assist with drinking. Juice, water, soda, and popsicles are readily available. For infants on formula, please bring formula the day of surgery. Pacifiers are allowed. Take the following medications with a SIP of water the morning of surgery: ___ALBUTEROL NEBULIZER OR INHALER NEEDED, CARVEDILOL, LEVOTHYROXINE Medications to discontinue per physician HOLD ALL VITAMINS/SUPPLEMENTS 3 DAYS PRE-OP Date to take last dose Please no make-up, nail ethiopian, hairspray, perfume, deodorant, or body powder the day of surgery. No jewelry (including any body piercings) or valuables the day of surgery, leave them at home. Please take a shower or bath the night before, or the morning of, surgery with an antibacterial soap. Wear comfortable, loose fitting clothing. Children are encouraged to wear pajamas. - Jewelry must be removed prior to entering the operating room. Rings and piercings that are not removed may be cut off. - The hospital will not accept responsibility for valuables. - Please leave all valuables, including medications, at home the day of surgery. If you are going home after surgery, a licensed team driver must drive you home. - NO public transportation without another adult. - We recommend that an adult stay with you for 24 hours following discharge. - We also recommend that you do not drive, make important decision, drink alcoholic beverages, or take any drugs that were not prescribed by your health care provider for at least 24 hours after your discharge time. For Pediatric surgeries, we recommend two adults accompany the child home (only one inside the building at this time). One visitor will be allowed to accompany the patient into the hospital. Patients visitor will be instructed to remain with patient at all times or leave the building. We will allow the visitor to come back to the postoperative area when patient is ready. Follow any additional instructions given to you from your surgeon. Telephone instructions given to __PATIENT and asked if any additional questions and then verbalized understanding. Patient advised to call surgeon office or pre surgery nurse liaison [phone] if any additional questions.
[2021-06-15] VITALS (16 sets, daily range): BP systolic 91–164; BP diastolic 46–90; PULSE 46–89; RESP 10–20; TEMP 35.7–36.1; O2SAT 91–100
[2021-06-15] MEDS: ACETAMINOPHEN 500 MG TABLET 1000 MG PO (10:28)
[2021-06-15] MEDS: TRANEXAMIC ACID 1,000MG/ISO100 1,000 MG/100 ML BAG 200 MG IVPB (10:44)
[2021-06-15] MEDS: LACTATED RINGERS 1,000 ML 30 ML IV CONT ×2 (10:44→14:47)
[2021-06-15 11:01] LABS: Glucose Point of Care 133 mg/dl (65-105)
--- NOTE | 2021-06-15 11:02 | WPDANESEPPF ---
Anes - Initial Pre Proc Eval Procedure: Operation Date: 06/15/21 12:00 Proposed Procedures p Left Total Hip Arthroplasty - Rafael Mckenna MD Date/Time: 06/15/21 11:02 Surgeon: Rafael Mckenna MD Pre Op Diagnosis: primary oa left hip Patient Data Age: 61 Gender: F Height: 1.55 m Weight: 75.7 kg Last Vital Signs Temp 36.3 C L 05/21/21 12:15 Pulse 58 L 05/21/21 12:15 Resp 16 05/21/21 12:15 BP 160/77 H 05/21/21 12:15 Pulse Ox 100 05/21/21 12:15 Allergies Allergy/AdvReac Type Severity Reaction Status Date / Time adhesive Allergy Unknown Blister Verified 05/21/21 12:04 ciprofloxacin Allergy Unknown Hives Verified 05/21/21 12:04 hydroxychloroquine Allergy Unknown Hives Verified 05/21/21 12:04 metronidazole Allergy Unknown Other Verified 05/21/21 12:04 Quinolones Allergy Unknown Hives Verified 05/21/21 12:04 ibuprofen AdvReac Unknown Other Verified 05/21/21 12:04 Home Medications Medication Instructions Recorded Confirmed Type albuterol sulfate 2.5 mg/0.5 mL 2.5 mg INHALATION Q4H PRN #30 each 02/16/19 06/01/21 Rx solution for nebulization blood sugar diagnostic #50 each 03/02/19 06/01/21 Rx lancets 33 gauge #100 each 03/02/19 06/01/21 Rx montelukast 10 mg tablet 10 mg PO DAILY #90 tablet 03/24/20 06/01/21 Rx carvedilol 6.25 mg tablet 6.25 mg PO BID #180 tablet 06/04/20 06/01/21 Rx atorvastatin 20 mg tablet 20 mg PO DAILY #90 tablet 06/16/20 06/01/21 Rx potassium chloride 10 mEq 10 meq PO DAILY #90 tablet 10/30/20 06/01/21 Rx tablet,extended release albuterol sulfate 2 puff INHALATION Q4-5H PRN 05/21/21 06/01/21 History ferrous sulfate 200 mg PO DAILY 05/21/21 06/01/21 History furosemide [Lasix] 20 mg PO QAM 05/21/21 06/01/21 History glipizide 2.5 mg PO QAM 05/21/21 06/01/21 History levothyroxine 100 mcg PO QAM 05/21/21 06/01/21 History lisinopril 5 mg PO QAM 05/21/21 06/01/21 History pantoprazole 40 mg PO QAM 05/21/21 06/01/21 History trazodone 100 mg PO HS 05/21/21 06/01/21 History Laboratory Tests 06/15/21 10:58 POC Capillary Glucose 133 mg/dl H mg/dl (65-105) Patient hx anesthesia problems: post op nausea/vomiting Family hx anesthesia problems: none Results Review: All pre-operative results and documents have been reviewed as part of the pre-operative evaluation. [facility] Past Medical History Medical History Anxiety Arthritis of left hip Breast cancer Right-sided breast cancer in 2006 status post chemotherapy and radiation. Bulging discs Hiatal hernia with GERD History of MRSA infection Secondary to Port-A-Cath. Hyperlipidemia Hypertension (~2004) Hypothyroidism (~1994) Insomnia Lupus Thrombocytosis Type 2 diabetes mellitus (~2016) Was 6.3 in May 2018. Surgical History Surgical History H/O dilation and curettage H/O laparoscopy H/O left wrist surgery History of appendectomy . History of foot surgery Right foot 2nd digit surgery. History of right knee surgery Repair of meniscal tear. History of total abdominal hysterectomy and bilateral salpingo-oophorectomy Hx of cholecystectomy . Hx of tonsillectomy Status post right breast lumpectomy In 2005 for breast cancer. Family History Family History Mother Family history of blood dyscrasia Father Family history of heart disease in male family member before age 55 Family history of elevated blood lipids Family history of coronary artery disease Carcinoma of colon Hypertension Grandparent Diabetes mellitus Sibling Acute Crohn's disease Other Family history of congenital heart disease Family history of diabetes mellitus in first degree relative Family history of malignant neoplasm Family history of malignant neoplasm of breast in first degree relative Family history of rheumatoid arthritis
[2021-06-15] MEDS: SCOPOLAMINE 1.5 MG PATCH TRANSDERM (11:10)
--- NOTE | 2021-06-15 11:57 | WPDHPUPDATE1 ---
History and Physical Update Update Date/Time: 06/15/21 11:57 History and Physical has been reviewed, including an updated exam of the patient. There are NO changes in the patient's condition. Risks, benefits, and alternatives have been discussed and questions answered. Patient agrees to proceed with procedure.
[2021-06-15] MEDS: ceFAZolin 2 GM/D5W 50 ML 2 GM/50 ML BAG IVPB ×2 (12:09→20:36)
[2021-06-15] MEDS: fentaNYL CITRATE INJ (*CRX) 100 MCG/2 ML VIAL 25 MCG IV PUSH ×6 (15:10→15:38)
[2021-06-15 15:31] LABS: Glucose Point of Care 132 mg/dl (65-105)
--- NOTE | 2021-06-15 15:42 | SUR.PHASEI ---
1540: simple mask removed.
[2021-06-15] MEDS: HYDROmorphone HCL INJ (*CRX) 1 MG/ML SYR 0.5 MG IV PUSH ×4 (15:57→16:45)
[2021-06-15] MEDS: ONDANSETRON INJ 4 MG/2 ML VIAL IV PUSH ×3 (16:55→21:53)
--- NOTE | 2021-06-15 16:55 | W.PM.PROC2 ---
Procedure Note - Detailed Date of Procedure 06/15/21 Pre-op Diagnosis primary oa left hip Post-op Diagnosis Same Procedure Performed Left Total Hip Arthroplasty Surgeon Rafael Mckenna MD Grommet Worker Queenie Saha PA-C Anesthesia General Findings Small stature. Femoral head measured 43 mm. Final ream to 46 mm. Dysplasia with increased acetabular anteversion. Femoral version 5 degrees. Combined anteversion 30 degrees. Two screws placed in the acetabulum. The acetabular press fit was good. Description of Procedure The patient was given preoperative antibiotics. A general anesthetic was administered. The patient was carefully placed in the lateral decubitus position on the PEG board. The shoulders and hips were carefully positioned for component and leg length positioning reference. The hip was prepped and draped in the usual sterile fashion. A longitudinal incision was created over the posterior aspect of the greater trochanter. Careful dissection was brought down through the deep fascia with electrocautery. A minimally invasive optimized posterior approach to the hip was performed. The short external rotators and capsule were taken down in an L-shaped capsulotomy. The tissue was tagged for later repair using number 2 high strength suture. The femoral neck was measured and taken in situ. The femoral head was removed. The acetabulum was carefully exposed. The inferior capsule was released. The labrum was resected. The acetabulum was sequentially reamed to one over the intended cup size. The cup was impacted into position with excellent press-fit. Typical anatomic landmarks, including the bony contact points as well as the inferior transverse acetabular ligament were used to confirm cup positioning with preoperative templating. Attention was turned to the femur, which was carefully exposed. The hip was reamed and then broached sequentially. Excellent press-fit was obtained with the broach. The hip was trialed. Measurements were utilized, including the lesser trochanter as well as the center of the femoral head and the tip of the trochanter, and excellent assessment of the offset and leg lengths were confirmed. The real component was impacted into position. Trialing confirmed appropriate leg length and offset with soft tissue balancing as well apparent feel of the leg, both at the knee and the heel. Soft tissues were assessed using the the iliotibial band. Reduction of the posterior capsule and external rotators were also used as a secondary assessment. The hip was copiously irrigated with pulsatile lavage antibiotic solution periodically throughout the procedure. The real components were then assembled and reduced. The hip was stable throughout typical maneuvers, including extension, external rotation to 70 degrees, the position of sleep as well as flexion to 90 degrees with internal rotation past 45 degrees. The shake test confirmed stability without impingement. Osteophytes were removed as necessary. The short external rotators and capsule were repaired back to the posterior trochanter through drill holes. The deep fascia was repaired with running number 2 Quill suture, followed by 0 Stratafix suture and 2-0 Stratafix suture in the dermis. Steri-Strips were placed on the skin, followed by a sterile silver occlusive dressing. There were no complications. Meticulous hemostasis was maintained with the AquaMantys device. The patient was brought to the recovery room in stable condition. There were no complications. Physician bindery library technical assistant, Queenie Saha PA-C, required for surgery; including patient positioning, draping, tissue retraction, maintaining instrument position, hip dislocation/ relocation, wound closure, and dressing placement. Implants The Accolade II hip stem, 132 degree size 2 , was utilized with excellent press-fit. The 46 mm Trident II acetabular component was impacted with good press-fit stability. Two supplemental
[2021-06-15] MEDS: SODIUM CHLORIDE 0.9% IV 1,000 ML 125 ML IV CONT (17:35)
--- NOTE | 2021-06-15 18:06 | ADMGEN ---
This patient, Steph Sharpe, was admitted to 2 Medical Room 244-. Patient/family oriented to hospital policies and general routines including ID bracelet, bed and alarms, visiting hours, pain management, procedures, bathroom and other care routines, personal items, smoking policy, room service/diet, and visiting hours. Information on how to activate the Rapid Response Team has been discussed. Patient/Family are encouraged to report perceived risks to care and to ask questions if they do not understand what they are told or what they should do.
[2021-06-15] MEDS: ASPIRIN 81 MG ENTERIC TABLET PO (18:09)
[2021-06-15] MEDS: SENNA/DOCUSATE SODIUM TABLET 2 TAB PO (18:09)
[2021-06-15] MEDS: diphenhydrAMINE HCl INJ 50 MG/ML VIAL 25 MG IV PUSH (20:08)
[2021-06-15 20:58] LABS: Glucose Point of Care 144 mg/dl (65-105)
--- NOTE | 2021-06-15 22:44 | PM.IMCN ---
Assessment and Plan Assessment and plan (1) Hypertension: Onset Date: ~2004 Qualifiers: Hypertension type: essential hypertension Qualified Code(s): I10 - Essential (primary) hypertension Code(s): I10 - Essential (primary) hypertension Status: Acute Assessment and Plan: Will resume patient's home medications once verified home medication list and adjust medications accordingly for optimal blood pressure control. (2) Hypothyroidism: Onset Date: ~1994 Qualifiers: Hypothyroidism type: acquired Qualified Code(s): E03.9 - Hypothyroidism, unspecified Code(s): E03.9 - Hypothyroidism, unspecified Status: Acute Assessment and Plan: Will resume patient's home levothyroxine seen. (3) Type 2 diabetes mellitus: Onset Date: ~2016 Qualifiers: Diabetes mellitus mcc insulin use: without mcc use Diabetes mellitus complication status: without complication Qualified Code(s): E11.9 - Type 2 diabetes mellitus without complications Code(s): E11.9 - Type 2 diabetes mellitus without complications Status: Chronic Assessment and Plan: Will place patient on blood glucose monitoring before meals and at bedtime with sliding scale insulin available. Patient states that she had not been checking her blood glucose levels at home secondary to her machine being broken. Will defer VT prophylaxis and pain medication to Orthopedic surgery. HPI Data of Consult Consult date: 06/15/21 Requesting Physician: Rafael Mckenna MD Primary Care Provider: Josiane SuarezMD Consult Narrative Narrative: Steph Sharpe is a 61 year old female who presented to the hospital for an elective left total hip replacement. Patient has an known history of lumbar degenerative disc disease, osteoarthritis, anxiety, right-sided breast cancer status post chemotherapy and radiation, dyslipidemia, hypertension, hypothyroidism, and diabetes mellitus. At this time patient states that she is having left hip pain. Patient states prior to having her hip replacement today she was doing well except for left hip pain and ambulating with a cane. Patient denies any chest pain, shortness breast, lightheadedness, dizziness, syncopal, or near syncopal episodes. Patient states she has been taking all medications at home without any difficulty. Review of Systems Review of Systems: A 12 point review of systems was completed patient all pertinent positive and negative per HPI the remainder are unremarkable. [facility] Past Medical History Medical History Anxiety Arthritis of left hip Breast cancer Right-sided breast cancer in 2007 status post chemotherapy and radiation. Bulging discs Hiatal hernia with GERD History of MRSA infection Secondary to Port-A-Cath. Hyperlipidemia Hypertension (~2004) Hypothyroidism (~1994) Insomnia Lupus Thrombocytosis Type 2 diabetes mellitus (~2016) Was 6.3 in May 2018. Surgical History Surgical History H/O dilation and curettage H/O laparoscopy H/O left wrist surgery History of appendectomy . History of foot surgery Right foot 2nd digit surgery. History of right knee surgery Repair of meniscal tear. History of total abdominal hysterectomy and bilateral salpingo-oophorectomy Hx of cholecystectomy . Hx of tonsillectomy Status post right breast lumpectomy In 2005 for breast cancer. Family History Family History Mother Family history of blood dyscrasia Father Family history of heart disease in male family member before age 55 Family history of elevated blood lipids Family history of coronary artery disease Carcinoma of colon Hypertension Grandparent Diabetes mellitus Sibling Acute Crohn's disease Other Family history of co
--- NOTE | ~2021-06-16 | XR_ITS ---
EXAM: XR hip LT min 2V HISTORY: POST OP LEFT TOTAL HIP COMPARISON: 04/01/21 FINDINGS: Interval left hip arthroplasty. Expected postsurgical changes. No unexpected radiopaque fo reign body. IMPRESSION: No radiographic evidence of procedure or hardware related complication. Reviewed, dictated and finalized at location K.
[2021-06-16 02:41] VITALS: BP 143/48; PULSE 67; RESP 20; TEMP 36; O2SAT 98
[2021-06-16] MEDS: ONDANSETRON INJ 4 MG/2 ML VIAL IV PUSH (03:00)
[2021-06-16 04:37] VITALS: BP 143/48; PULSE 67; RESP 20; TEMP 36; O2SAT 98
[2021-06-16] MEDS: ceFAZolin 2 GM/D5W 50 ML 2 GM/50 ML BAG IVPB ×2 (04:53→11:22)
[2021-06-16] MEDS: LEVOTHYROXINE SODIUM 100 MCG TABLET PO (05:46)
[2021-06-16 08:17] LABS: Glucose Point of Care 122 mg/dl (65-105)
--- NOTE | 2021-06-16 08:53 | WPDANESPN ---
Anes - Prog Note Post-Op Date/Time: 06/16/21 08:53 Cardiovascular status: normal Respiratory status: normal Airway patency: baseline Mental status: baseline Post-Op hydration status: normal Vital Signs: Last Vital Signs Temp 96.8 F L 06/16/21 04:37 Pulse 67 06/16/21 04:37 Resp 20 06/16/21 04:37 BP 143/48 H 06/16/21 04:37 Pulse Ox 98 06/16/21 04:37 Pain Score (VAS): 02/23 I/O: Intake & Output 06/15/21 06/16/21 06/16/21 23:59 07:59 15:59 Intake Total 750 340 150 Output Total 400 Balance 750 -60 150 Laboratory Tests 06/16/21 04:44 06/15/21 06/15/21 06/15/21 10:46 10:58 15:28 Potassium POC Capillary Glucose 133 H 132 H Blood Type A Positive Antibody Screen Negative 06/15/21 06/16/21 06/16/21 20:50 04:44 07:29 Potassium 4.0 POC Capillary Glucose 144 H 122 H Blood Type Antibody Screen Post-procedural complaints: none Patient Feedback: Patient satisfied with anesthetic care.
[2021-06-16] MEDS: glipiZIDE XL 2.5 MG TAB.ER.24 PO (09:08)
[2021-06-16 09:09] VITALS: PULSE 64
[2021-06-16] MEDS: ASPIRIN 81 MG ENTERIC TABLET PO ×2 (09:09→16:18)
[2021-06-16] MEDS: ATORVASTATIN 20 MG TABLET PO (09:09)
[2021-06-16] MEDS: predniSONE 5 MG TABLET PO (09:09)
[2021-06-16] MEDS: carvediloL 6.25 MG TABLET PO ×2 (09:09→21:10)
[2021-06-16] MEDS: SENNA/DOCUSATE SODIUM TABLET 2 TAB PO ×2 (09:10→16:18)
[2021-06-16] MEDS: MONTELUKAST SODIUM 10 MG TABLET PO (09:10)
[2021-06-16] MEDS: FAMOTIDINE 20 MG TABLET PO ×2 (09:10→21:10)
[2021-06-16] MEDS: FUROSEMIDE 20 MG TABLET PO (09:10)
[2021-06-16] MEDS: lisinopriL 5 MG TABLET PO (09:10)
[2021-06-16] MEDS: PANTOPRAZOLE 40 MG TABLET PO (09:10)
[2021-06-16] MEDS: polyethylene glycoL 3350 17 GM POWD.PACK PO (09:11)
[2021-06-16] MEDS: POTASSIUM CHLORIDE 10 MEQ TABLET.ER PO (09:11)
[2021-06-16] MEDS: CYCLOBENZAPRINE HCL 10 MG TABLET PO (10:31)
[2021-06-16] MEDS: ACETAMINOPHEN 500 MG TABLET 1000 MG PO (11:23)
[2021-06-16 11:31] LABS: Glucose Point of Care 116 mg/dl (65-105)
--- NOTE | 2021-06-16 12:58 | PM.PNORT ---
Progress Note: A&P Assessment and Plan (1) Status post total hip replacement, left: Code(s): Z96.642 - Presence of left artificial hip joint Status: Acute (2) Orthopedic aftercare for joint replacement: Code(s): Z47.1 - Aftercare following joint replacement surgery Status: Acute Assessment and Plan: Postop day 1: Total hip arthroplasty. Patient tolerated procedure well. She is having trouble with pain control. She is very sensitive to pain medications. Notes issues with N/V today. Was unable to keep food down yesterday. She has been unable to empty her bladder on her own. I recommend she stay another night for pain control and until she is able to urinate on her own. Subjective Subjective Date/Time Seen: 06/16/21 12:58 She is having trouble with pain control. She is very sensitive to pain medications. Notes issues with N/V today. Was unable to keep food down yesterday. She has been unable to empty her bladder on her own. No CP, SOB. No other complaints. Review of Systems Review of Systems: All systems reviewed & are unremarkable except as noted in HPI and below Exam Narrative: Overweight 61 y/o female. Resting in bed. Uncomfortable. Wearing compression socks bilaterally. Dressing dry and intact with no drainage. Moderate swelling. No ecchymosis. No erythema. No hematoma. Range of motion limited due to pain. Calf nontender. Thigh nontender. Neurologic status intact. No varicosities. Distal pulses palpable. Objective Data Vital Signs Vital Signs: Vital Signs - 24 hr 06/15/21 14:47 06/15/21 15:00 06/15/21 15:15 Temperature 97.0 F L Pulse Rate 54 L 63 63 Respiratory Rate 12 14 20 Blood Pressure 121/47 L 100/88 91/64 L Pulse Oximetry 97 100 100 06/15/21 15:30 06/15/21 15:45 06/15/21 16:00 Temperature Pulse Rate 51 L 58 L 48 L Respiratory Rate 12 18 12 Blood Pressure 92/75 L 112/65 147/50 H Pulse Oximetry 100 91 100 06/15/21 16:15 06/15/21 16:30 06/15/21 16:45 Temperature Pulse Rate 46 L 47 L 64 Respiratory Rate 10 L 15 16 Blood Pressure 124/67 145/46 H 116/61 Pulse Oximetry 100 100 100 06/15/21 16:56 06/15/21 17:11 06/15/21 17:41 Temperature 96.2 F L 96.4 F L 96.5 F L Pulse Rate 53 L 55 L 59 L Respiratory Rate 16 18 18 Blood Pressure 154/61 H 160/90 H 156/53 H Pulse Oximetry 100 100 100 06/15/21 18:41 06/15/21 18:47 06/15/21 19:42 Temperature 96.8 F L 96.8 F L Pulse Rate 58 L 89 Respiratory Rate 18 20 Blood Pressure 151/47 H 164/81 H Pulse Oximetry 100 100 92 06/15/21 22:09 06/16/21 02:41 06/16/21 04:37 Temperature 96.8 F L 96.8 F L 96.8 F L Pulse Rate 89 67 67 Respiratory Rate 20 20 20 Blood Pressure 164/81 H 143/48 H 143/48 H Pulse Oximetry 92 98 98 06/16/21 09:09 Temperature Pulse Rate 64 Respiratory Rate Blood Pressure Pulse Oximetry Intake/Output Intake/Output: Intake & Output 06/13/21 06/14/21 06/15/21 06/16/21 23:59 23:59 23:59 23:59 Intake Total 800 730 Output Total 400 Balance 800 330 Meds/Results Medications: Active Medications Generic Name Dose Route Start Last Admin Trade Name Freq PRN Reason Stop Dose Admin Acetaminophen 1,000 mg 06/16/21 12:00 06/16/21 11:23 Acetaminophen 500 Mg Tablet PO 1,000 mg Q6H PRN Administration Pain Rated 1-3 Albuterol 2.5 mg 06/15/21 16:56 Albuterol Sulfate Neb 2.5 Mg/0.5 Ml Inh INHALATION Q4H PRN shortness of breath or wheezing Albuterol 2 puff 06/15/21 16:56 Albuterol Sulfate (*Sp) Aerosol 1 Puff INHALATION Q4H PRN Dyspnea Aspirin 81 mg 06/15/21 17:00 06/16/21 09:09 Aspirin 81 Mg Enteric Tablet PO 81 mg BID KRISTAL Administration Atorvastatin Calcium 20 mg 06/16/21 09:00 06/16/21 09:09 Atorvastatin 20 Mg Tablet PO 20 mg DAILY KRISTAL Administration Carvedilol 6.25 mg 06/15/21 21:00 06/16/21 09:09 Carvedilol 6.25 Mg Tablet PO 6.25 mg Q12HR KRISTAL Administration Cyclobenzaprine HC
[2021-06-16] MEDS: oxyCODONE HCL (*CRX) 2.5 MG TAB IR PO ×3 (13:38→22:40)
--- NOTE | 2021-06-16 14:54 | PM.IMPN ---
Progress Note: A&P Assessment and Plan (1) Status post total hip replacement, left: Code(s): Z96.642 - Presence of left artificial hip joint Status: Acute Assessment and Plan: Patient underwent left total hip arthroplasty on 06/15/2021. Care per Orthopedic surgery. Continue with PT/OT (2) Hypertension: Onset Date: ~2004 Qualifiers: Hypertension type: essential hypertension Qualified Code(s): I10 - Essential (primary) hypertension Code(s): I10 - Essential (primary) hypertension Status: Acute Assessment and Plan: Blood pressures reviewed and been slightly elevated above target but seems to be slowly improving. Last BP 143/48. Continue low-dose carvedilol, Lasix, lisinopril. Monitor BP trends and adjust medication regimen as needed (3) Hypothyroidism: Onset Date: ~1994 Qualifiers: Hypothyroidism type: acquired Qualified Code(s): E03.9 - Hypothyroidism, unspecified Code(s): E03.9 - Hypothyroidism, unspecified Status: Acute Assessment and Plan: Continue home levothyroxine. Check TSH. 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 Continue with Accu-Cheks, sliding scale insulin, hypoglycemic protocol. Continue home glipizide. Subjective Date/time seen: 06/16/21 14:54 Interval history: Date of service: 06/16/2021 Steph Sharpe is a 61 year old female with a history of hypertension, hyperlipidemia, hypothyroidism, breast cancer, type 2 diabetes mellitus, and left hip osteoarthritis now s/p left hip replacement who is seen in consultation for medical management. She is feeling well today. She endorses left hip pain that she rates as 3/10. She was able to get up and walk around today at which time her pain increased to 7/10. She is eating well. She did have some nausea postoperatively but this has resolved. She denies shortness of breath or chest pain. Reports last BM was 3 days ago. Denies urinary symptoms. Review of Systems Review of Systems: All systems reviewed & are unremarkable except as noted in HPI and below Exam Narrative: General: Well-nourished, well-appearing 61-year-old female, sitting up in a chair, comfortable, NARD Neuro: awake, alert and oriented x4, speech clear, no focal neuro deficits noted HEENMT: normocephalic, atraumatic, EOMI, sclerae anicteric Respiratory: clear to auscultation bilaterally, nonlabored breathing Cardio: regular rate, regular rhythm with S1-S2 Abdomen: nondistended, normoactive bowel sounds, soft, nontender to palpation Extremities: left hip and thigh slightly tender to palpation, BLE without edema, erythema, or tenderness to palpation, DP pulses 2+ bilaterally Skin: no rashes or lesions, warm and dry Psych: appropriate mood and affect, judgment and insight intact Objective Data Vital Signs Vital Signs: Vital Signs - 24 hr 06/15/21 15:00 06/15/21 15:15 06/15/21 15:30 Temperature Pulse Rate 63 63 51 L Respiratory Rate 14 20 12 Blood Pressure 100/88 91/64 L 92/75 L Pulse Oximetry 100 100 100 06/15/21 15:45 06/15/21 16:00 06/15/21 16:15 Temperature Pulse Rate 58 L 48 L 46 L Respiratory Rate 18 12 10 L Blood Pressure 112/65 147/50 H 124/67 Pulse Oximetry 91 100 100 06/15/21 16:30 06/15/21 16:45 06/15/21 16:56 Temperature 96.2 F L Pulse Rate 47 L 64 53 L Respiratory Rate 15 16 16 Blood Pressure 145/46 H 116/61 154/61 H Pulse Oximetry 100 100 100 06/15/21 17:11 06/15/21 17:41 06/15/21 18:41 Temperature 96.4 F L 96.5 F L 96.8 F L Pulse Rate 55 L 59 L 58 L Respiratory Rate
[2021-06-16 17:29] LABS: Glucose Point of Care 150 mg/dl (65-105)
[2021-06-16 18:41] VITALS: BP 157/53; PULSE 62; RESP 20; TEMP 36.2; O2SAT 100
[2021-06-16 19:21] VITALS: BP 157/53; PULSE 62; RESP 20; TEMP 36.2; O2SAT 100
[2021-06-16] MEDS: traZODone HCL 50 MG TABLET 100 MG PO (21:10)
[2021-06-16 23:07] VITALS: PULSE 63; O2SAT 98
[2021-06-17 01:26] LABS: Glucose Point of Care 107 mg/dl (65-105)
[2021-06-17] MEDS: CYCLOBENZAPRINE HCL 10 MG TABLET PO (02:58)
[2021-06-17] MEDS: oxyCODONE HCL (*CRX) 2.5 MG TAB IR PO ×3 (03:18→12:23)
[2021-06-17 04:56] VITALS: BP 137/48; PULSE 89; RESP 20; TEMP 36.2; O2SAT 93
[2021-06-17 05:19] LABS: Hematocrit 32.4 % (37.0-47.0); Hemoglobin 11.2 g/dL (12.0-15.0); Mean Corpuscular HGB Conc 34.6 g/dl (32-36); Mean Corpuscular Hemoglobin 29.7 pg (26-34); Mean Corpuscular Volume 85.9 fl (80-100); Mean Platelet Volume 8.2 fl (7.4-10.4); Platelet Count Result 371 k/mm3 (150-375); Red Blood Count 3.77 M/mm3 (4.2-5.4); Red Cell Distribution Width 15.2 % (11.5-14.5); White Blood Count 6.1 K/mm3 (4.5-10.0)
[2021-06-17] MEDS: ACETAMINOPHEN 500 MG TABLET 1000 MG PO (05:30)
[2021-06-17 05:32] LABS: Anion Gap 5 mmol/L (8-16); Blood Urea Nitrogen 16 mg/dL (7-17); Calcium 8.5 mg/dL (8.4-10.2); Carbon Dioxide 24 mmol/L (22-30); Chloride 107 mmol/L (98-107); Estimated CRCL calculation 69 ml/min; Estimated Glomerular Filt Rate > 60; Glucose 123 mg/dL (65-110); Potassium 3.4 mmol/L (3.4-5.0); Sodium 136 mmol/L (137-145)
[2021-06-17] MEDS: LEVOTHYROXINE SODIUM 100 MCG TABLET PO (06:42)
[2021-06-17 07:27] LABS: Glucose Point of Care 131 mg/dl (65-105)
[2021-06-17] MEDS: FERROUS SULFATE 324 MG TABLET PO (07:44)
[2021-06-17 07:45] VITALS: PULSE 80
[2021-06-17] MEDS: ATORVASTATIN 20 MG TABLET PO (07:45)
[2021-06-17] MEDS: glipiZIDE XL 2.5 MG TAB.ER.24 PO (07:45)
[2021-06-17] MEDS: predniSONE 5 MG TABLET PO (07:45)
[2021-06-17] MEDS: SENNA/DOCUSATE SODIUM TABLET 2 TAB PO (07:45)
[2021-06-17] MEDS: ASPIRIN 81 MG ENTERIC TABLET PO (07:45)
[2021-06-17] MEDS: carvediloL 6.25 MG TABLET PO (07:45)
--- NOTE | 2021-06-17 07:45 | PM.IMPN ---
Progress Note: A&P Assessment and Plan (1) Status post total hip replacement, left: Code(s): Z96.642 - Presence of left artificial hip joint Status: Acute Assessment and Plan: left total hip arthroplasty on 06/15/[address] Mckenna Post op Care per Orthopedic surgery Continue with PT/OT antiemetics and analgesics on board DVT per ortho (2) Hypertension: Onset Date: ~2004 Qualifiers: Hypertension type: essential hypertension Qualified Code(s): I10 - Essential (primary) hypertension Code(s): I10 - Essential (primary) hypertension Status: Acute Assessment and Plan: Current BP is 137/48 Continue home carvedilol, Lasix, lisinopril Trend BP Adjust medication regimen as indicated (3) Hypothyroidism: Onset Date: ~1994 Qualifiers: Hypothyroidism type: acquired Qualified Code(s): E03.9 - Hypothyroidism, unspecified Code(s): E03.9 - Hypothyroidism, unspecified Status: Acute Assessment and Plan: TSH Continue home levothyroxine 100mcg PO Daily (4) Type 2 diabetes mellitus: Onset Date: ~2016 Qualifiers: Diabetes mellitus complication status: without complication 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 Time Spent With Patient Time with patient: Greater than 35 minutes Subjective Date/time seen: 06/17/21 07:45 Interval history: Steph Sharpe is a 61 year old female with a history of hypertension, hyperlipidemia, hypothyroidism, breast cancer, type 2 diabetes mellitus, and left hip osteoarthritis now s/p left hip replacement who is seen in consultation for medical management. Patient is doing really well. Patient is stable for discharge at this time. She did state that she is having some pain which she rates at 3/10 however she is walking and that is when her pain usually radiates. She denies any chest pain, shortness of breath, nausea, vomiting, diarrhea, constipation, weakness or fatigue. Review of Systems Review of Systems: All systems reviewed & are unremarkable except as noted in HPI and below Exam Const: General: cooperative, healthy appearing, no acute distress, well developed, alert and awake Nutritional Appearance: well nourished Orientation/consciousness: patient oriented x3 Limitations: no limitations HENMT: Head: normal to inspection Ears: hearing grossly normal bilaterally General nose exam: Normal external nose present Mouth: Yes Normal oral and palatal mucosa present, Yes lip normal and Yes tongue normal Teeth and gingiva: abnormal tooth and associated gingiva and poor dentition Eyes: General: appearance normal, both eyes and all related structures Neck: Neck: normal visual inspection, full ROM, trachea midline and supple Chest: Chest palpation & inspection: normal inspection of the chest Resp: Effort & Inspection: normal respiratory effort and able to speak in complete sentences Auscultation: clear to auscultation bilaterally Cardio: Jugular venous distension: no JVD Rate: regular rate Rhythm: regular rhythm Heart sounds: S1 normal heart sound present and S2 normal heart sound present Peripheral pulses: Peripheral pulses 2+ throughout GI: Inspection: normal to inspection GI Palp: Yes Soft to palpation and No Tenderness to palpation present (GI) Auscultation: normal bowel sounds Skin: General skin exam: normal color and no rashes or lesions noted Lesions: no lesions Rashes: no rashes Trauma: laceration Wounds: wounds noted Hair: normal Nails: normal Neuro: General: patient oriented x3, moves
[2021-06-17] MEDS: lisinopriL 5 MG TABLET PO (07:46)
[2021-06-17] MEDS: POTASSIUM CHLORIDE 10 MEQ TABLET.ER PO (07:46)
[2021-06-17] MEDS: MONTELUKAST SODIUM 10 MG TABLET PO (07:46)
[2021-06-17] MEDS: FAMOTIDINE 20 MG TABLET PO (07:46)
[2021-06-17] MEDS: FUROSEMIDE 20 MG TABLET PO (07:46)
[2021-06-17] MEDS: PANTOPRAZOLE 40 MG TABLET PO (07:46)
[2021-06-17 09:13] LABS: Thyroid Stimulating Hormone Reflex 0.195 uIU/mL (0.465-4.68)
--- NOTE | 2021-06-17 11:17 | PCCCNOTE ---
On 06/17/21, the student, [Pily Sanchez ], provided care and completed [facility] documentation on this patient. I have reviewed the student's documentation and agree with the findings.
[2021-06-17 11:47] LABS: Glucose Point of Care 129 mg/dl (65-105)
--- NOTE | 2021-06-17 12:18 | PM.DS ---
DS: Admitting Diagnosis Discharge Date 06/17/21 Admitting Diagnosis OA Left hip DS: Discharge Diagnosis Discharge Diagnosis (1) Status post total hip replacement, left: Code(s): Z96.642 - Presence of left artificial hip joint Status: Acute Assessment and Plan: Postop day 1: Left total Hip arthroplasty. Patient tolerated procedure well. No complications. Pain manageable with pain medication. No numbness or tingling. We had a lengthy discussion regarding postoperative wound care, limitations, expectations, and exercises. Patient shows good understanding. He has had initial physical therapy and is tolerating it well. DVT prophylaxis: 81 mg baby aspirin b.i.d. for 14 days. Pain medication: Percocet. May cut in half. Patient has followup appointment with Dr. Mckenna in 3 weeks. DS: Summary Hospital Course Reason for hospitalization: Total hip arthroplasty Hospital Course: Patient tolerated procedure well. Has had initial PT/OT and made good progress. Status at Discharge Functional status at discharge: uses cane/walker Overall status at discharge: patient is progressing back to baseline Time Spent with Patient Time attestation: Total time spent providing and/or coordinating discharge services: Exam Narrative: Overweight 61 y/o female. Resting comfortably in bed. Wearing compression socks bilaterally. Dressing dry and intact with no drainage. Moderate swelling. No ecchymosis. No erythema. No hematoma. Range of motion limited due to pain. Calf nontender. Thigh nontender. Neurologic status intact. No varicosities. Distal pulses palpable. DS: Data Data Completed and Pending Labs on day of discharge: Labs from last 24 hours 06/17/21 06/17/21 06/17/21 11:16 07:20 05:10 WBC RBC Hgb Hct MCV MCH MCHC RDW Plt Count MPV Sodium 136 L Potassium 3.4 Chloride 107 Carbon Dioxide 24 Anion Gap 5 L BUN 16 Creatinine 0.70 Estim Creat Clear Calc 69 Estimated GFR > 60 Glucose 123 H POC Capillary Glucose 129 H 131 H Calcium 8.5 TSH (Reflex) Free T4 06/17/21 06/17/21 06/17/21 05:10 05:08 05:08 WBC 6.1 RBC 3.77 L Hgb 11.2 L D Hct 32.4 L MCV 85.9 MCH 29.7 MCHC 34.6 RDW 15.2 H Plt Count 371 MPV 8.2 Sodium Potassium Chloride Carbon Dioxide Anion Gap BUN Creatinine Estim Creat Clear Calc Estimated GFR Glucose POC Capillary Glucose Calcium TSH (Reflex) 0.195 L Free T4 Pending 06/16/21 06/16/21 22:42 16:16 WBC RBC Hgb Hct MCV MCH MCHC RDW Plt Count MPV Sodium Potassium Chloride Carbon Dioxide Anion Gap BUN Creatinine Estim Creat Clear Calc Estimated GFR Glucose POC Capillary Glucose 107 H 150 H Calcium TSH (Reflex) Free T4 Discharge Plan Discharge Attending physician on discharge: Rafael Mckenna Consulting providers: Olga Rogers ; Kerry Joaquin Discharging Clinician: Queenie Saha Anticipated Discharge Date/Time: 06/17/21 12:06 Patient Disposition: Home, Self-Care Activity: june shower Diet: as tolerated and regular Wound Care Instructions: follow printed instructions Discharge Instructions: See green discharge instructions. Patient Instructions: Antibiotic Form, Pain Management (ED), Precautions after Total Joint Replacement Surgery (DC), Total Hip Replacement (DC) Stand Alone Forms: General Discharge Information Follow-up/Referrals: Queenie Saha PA [Physician Hi Teacher] - Discharge Medications: New oxycodone-acetaminophen 5-325 mg tablet 1 - 2 tablet PO Q4-6H MDD 6 PRN (Reason: pain) Qty: 20 RF: 0 prednisone 5 mg tablet 5 mg PO DAILY 21 Days Qty: 21 RF: 0 aspirin 81 mg tablet,delayed release (DR/EC) 81 mg PO BID 14 Days Qty: 28 RF: 0 Continued albuterol sulfat
[2021-06-17 12:19] LABS: Free T4 Free Thyroxine Reflex 1.65 ng/dL (0.78-2.19)
[2021-06-17 22:15] LABS: Total Triiodothyronine (T3) 0.78 NG/ML (0.97-1.69)
== END 2021-06-17 13:28 | disposition home or self-care (01) ==
LOC: ANHSURGERY 13:28 → ANH2MED 13:28
PROVIDERS: Nurse Practitioner; Physician Assistant; Physician Assistant Surgical; Admitting Provider Orthopaedic Surgery; PCP Family Medicine; Visit Provider Orthopaedic Surgery
PROC: (CPT 27130; principal; 2021-06-15 12:00)
DX: M16.12 Unilateral primary osteoarthritis, left hip (principal); E78.5 Hyperlipidemia, unspecified; E03.9 Hypothyroidism, unspecified; E11.9 Type 2 diabetes mellitus without complications; F41.9 Anxiety disorder, unspecified; I10 Essential (primary) hypertension; K21.9 Gastro-esophageal reflux disease without esophagitis; Z90.710 Acquired absence of both cervix and uterus; Z90.49 Acquired absence of other specified parts of digestive tract; Z85.3 Personal history of malignant neoplasm of breast; Z86.14 Personal history of Methicillin resistant Staphylococcus aureus infection; Z79.84 Long term (current) use of oral hypoglycemic drugs
CPT/HCPCS: 27130; 36415; 73502; 80048; 80307; 82040; 82948; 83036; 84132; 84439; 84443; 84480; 85025; 85027; 86850; 86900; 86901; 87081; 97110; 97116; 97161; 97165; 97530; 97535; A9270; C1776; G0378; G0379; J0131; J0171; J0330; J0690; J1100; J1170; J1200; J2250; J2270; J2405; J2704; J2795; J3010; J7030; J7120; J7512

== ENCOUNTER 2022-05-12 08:15 | Outpatient (CLI) | payer MEDICARE, MEDICAID, SELFPAY ==
--- NOTE | 2022-05-31 15:22 | WPDHOMESLEEP ---
Sleep Study - Home Unattended Date of Study: 05/12/22 Ordering Provider: Ubaldo Ya DO Interpreting Provider: Cathie Nj DO Home Sleep Study Type: Watch PAT Height: 1.52 m Weight: 68.039 kg Body Mass Index: 29.2 Neck Circumference (inches): 14 Callands: 8 Reason for Sleep Study Heart racing Sleep History The patient is a 62-year-old female with hypertension, hypothyroidism, gout, GERD, depression, hyperlipidemia, insomnia, lupus, type 2 diabetes, anxiety and history of breast cancer in 2006 that had a sleep study ordered for evaluation of sleep apnea. The patient frequently awakens from sleep short of breath. She rarely awakens at night with heartburn, belching or cough. She rarely snores and is never loud enough that others complain. She frequently has trouble sleeping when she has a cold. She denies waking up gasping for air throughout the night. She denies having breathing problems at night observed by herself or others. He rarely sweats excessively at night. She denies having heart palpitations or irregular heartbeats during the night. He occasionally falls asleep during the day but never while driving. She denies sleep paralysis, cataplexy and hypnagogic / hypnopompic hallucinations. She rarely has trouble at school or work due to sleepiness. She denies feeling afraid of going to sleep. She rarely has nightmares. She rarely remembers her dreams. She frequently has thoughts racing through her mind. She occasionally feels sad, depressed or anxious. She rarely has muscular tension. She occasionally notices parts of her body jerk. She denies kicking during the night. She rarely has crawling and aching feelings in her legs but occasionally has leg pain during the night. She denies grinding her teeth during sleep and denies awakening with morning jaw pain. She is frequently bothered by pain during the day and frequently awakened by pain during the night. She frequently wakes up feeling stiff in the morning. She rarely wakes up with sore or achy muscles. She occasionally wakes up with pain in the neck, spine or other joints. She goes to bed at 10:00 p.m. on weekdays and 11:00 p.m. on the weekends. It takes her 30 minutes to fall asleep. She wakes up 3 times throughout the night for unknown reasons. When she awakens, she will watch television and a can take her 2-3 hours to fall back asleep. She wakes up at 7:00 a.m. on weekdays and 8:00 a.m. on the weekends. She typically gets 4-5 hours of sleep per night. She will stay in bed for 30 minutes after waking up in the morning. She currently lives alone. She does not consume any caffeinated beverages within 2 hours of bedtime. She does not engage in physical exercise before bedtime. She will watch television before falling asleep. She denies taking naps in the afternoon or the evening. He does not consume any caffeinated beverages throughout the day. He consumes 2 alcoholic beverages per month. She denies tobacco and recreational drug use. [facility] Past Medical History Medical History Anxiety Arthritis of left hip Breast cancer Right-sided breast cancer in 2006 status post chemotherapy and radiation. Bulging discs Hiatal hernia with GERD History of MRSA infection Secondary to Port-A-Cath. Hyperlipidemia Hypertension (~2004) Hypothyroidism (~1994) Insomnia Lupus Thrombocytosis Type 2 diabetes mellitus (~2017) Was 6.3 in May 2018. Surgical History Surgical History H/O dilation and curettage H/O laparoscopy H/O left wrist surgery History of appendectomy . History of foot surgery Right foot 2nd digit surgery. History of right knee surgery Repair of meniscal tear. History of total abdominal hysterectomy and bilateral salpingo-oophorectomy Hx of cholecystectomy . Hx of tonsillectomy Status post right breast lumpectomy
[2022-05-31 15:34] VITALS: BMI 29.2
== END 2022-05-14 11:26 | disposition home or self-care (01) ==
PROVIDERS: PCP Family Medicine; Visit Provider Internal Medicine Cardiovascular Disease
DX: G47.33 Obstructive sleep apnea (adult) (pediatric) (principal); G47.10 Hypersomnia, unspecified; Z72.821 Inadequate sleep hygiene; E78.5 Hyperlipidemia, unspecified; I10 Essential (primary) hypertension; E11.9 Type 2 diabetes mellitus without complications
CPT/HCPCS: 95800

== ENCOUNTER 2023-04-23 21:34 | Emergency (ER) | payer MEDICARE, MEDICAID, SELFPAY ==
--- NOTE | ~2023-04-23 | XR_ITS ---
EXAMINATION: XR chest 2V DATE: 04/23/2023 22:25 INDICATION: Chest pain. Shortness of breath. TECHNIQUE: Frontal and lateral views of the chest were obtained. COMPARISON: Chest 2 views 08/10/2019 FINDINGS: There is no pneumonia or pneumothorax. There are small pleural effusions. Cardiomegaly is n oted. Surgical clips in the right upper quadrant are likely from cholecystectomy. There are surgical clips in right breast. IMPRESSION: 1. Small pleural effusions. 2. Cardiomegaly. Reviewed, dictated and finalized at location E. TICE NURSE
--- NOTE | 2023-04-23 21:36 | ECG_ITS ---
Measurements Intervals [place] Rate: 71 P: 32 HI: 117 QRS: -32 QRSD: 89 T: 9 QT: 392 QTc: 428 Interpretive Statements SINUS RHYTHM WITH SHORT HI INTERVAL LEFT AXIS DEVIATION LEFT VENTRICULAR HYPERTROPHY BORDERLINE R WAVE PROGRESSION, ANTERIOR LEADS BORDERLINE ECG COMPARISON TO PRIOR ECG 04-01-21 12:59 SINUS RHTYHM NOW PRESENT Electronically Signed On 04-24-2023 9:45:22 CDT by Ubaldo Ya D.O.
[2023-04-23 21:39] VITALS: BP 154/75; PULSE 71; RESP 15; TEMP 36.6; O2SAT 97
[2023-04-23] MEDS: ASPIRIN 81 MG CHEWABLE TABLET 324 MG PO (22:01)
[2023-04-23 22:14] LABS: Basophils Percent Auto 0.2 % (0.2-1.2); Eosinophils Absolute Auto 0.1 K/mm3 (0-0.3); Eosinophils Percent Auto 1.4 % (0-4.4); Hematocrit 49.4 % (37.0-47.0); Hemoglobin 15.5 g/dL (12.0-15.0); Immature Granulocyte Absolute 0.11 K/mm3 (0.00-0.031); Immature Granulocyte Percent A 1.1 % (0-0.5); Lymphocytes Absolute Auto 1.28 K/mm3 (0.9-3.2); Lymphocytes Percent Auto 12.9 % (18.3-44.2); Mean Corpuscular HGB Conc 31.4 g/dl (32-36); Mean Corpuscular Volume 73.4 fl (80-100); Mean Platelet Volume 8.9 fl (7.4-10.4); Monocytes Absolute Auto 0.9 K/mm3 (0.1-0.6); Neutrophils Absolute Auto 7.5 K/mm3 (1.3-6.7); Neutrophils Percent Auto 75.4 % (45.5-73.1); Platelet Count Result 614 k/mm3 (150-375); Red Blood Count 6.73 M/mm3 (4.2-5.4); Red Cell Distribution Width 16.7 % (11.5-14.5); White Blood Count 9.9 K/mm3 (4.5-10.0)
[2023-04-23 22:27] LABS: Anisocytosis 1+ (NORMAL); Hypochromasia 1+ (NORMAL); Platelet Estimate Increased (Adequate); Poikilocytosis 1+ (NORMAL); Prothrombin Time 13.4 Seconds (11.1-14.7)
[2023-04-23 22:28] LABS: Schistocytes None Seen (NORMAL)
[2023-04-23 22:29] LABS: Partial Thromboplastin Time 28.5 SECONDS (22.3-36.8)
[2023-04-23 22:36] VITALS: O2SAT 97
[2023-04-23 22:41] LABS: Alanine Aminotransferase 25 U/L (6-35); Albumin Level 4.4 g/dL (3.5-5.1); Alkaline Phosphatase 95 U/L (38-126); Anion Gap 9 mmol/L (8-16); Aspartate Amino Transferase 43 U/L (14-36); Bilirubin,Total 1.1 mg/dL (0.2-1.3); Blood Urea Nitrogen 30 mg/dL (7-17); Calcium 9.2 mg/dL (8.4-10.2); Carbon Dioxide 24 mmol/L (22-30); Chloride 101 mmol/L (98-107); Estimated Glomerular Filt Rate > 60; Glucose 165 mg/dL (65-110); Lipase 157 U/L (23-300); Potassium 4.2 mmol/L (3.4-5.0); Sodium 134 mmol/L (137-145)
[2023-04-23 22:48] LABS: NT Pro B Type Natriuretic Pept 1870 pg/mL (19.9-100); Troponin I < 0.012 ng/mL (0.000-0.034)
--- NOTE | 2023-04-23 23:00 | ED.SOB ---
HPI - SOB/Dyspnea General Chief Complaint: Chest Pain Stated Complaint: SOB, cp Time Seen by Provider: 04/23/23 22:02 Source: patient Mode of arrival: ambulatory Limitations: no limitations History of Present Illness HPI Narrative: This is a 63 year old female that presents to the ER for shortness of breath. Reports she was just admitted to another facility over the last couple of days for workup of her symptoms. She was discharged this morning. Reports continued shortness of breath and intermittent chest pain today. Does report a cough. Denies fevers or lower extremity edema. Related Data Home Medications Medication Instructions Recorded Confirmed albuterol sulfate 90 mcg/actuation 2 puff inhalation Q4-5H PRN Dyspnea 05/21/21 02/24/23 aerosol inhaler levothyroxine 100 mcg tablet 100 mcg PO QAM 05/21/21 02/24/23 pantoprazole 40 mg tablet,delayed 40 mg PO QAM 05/21/21 02/24/23 release trazodone 100 mg tablet 100 mg PO HS 05/21/21 02/24/23 furosemide 20 mg tablet 20 mg PO QAM 10/28/21 02/24/23 Allergies Allergy/AdvReac Type Severity Reaction Status Date / Time adhesive Allergy Unknown Blister Verified 02/24/23 14:33 ciprofloxacin Allergy Unknown Hives Verified 02/24/23 14:33 hydroxychloroquine Allergy Unknown Hives Verified 02/24/23 14:33 metronidazole Allergy Unknown Other Verified 02/24/23 14:33 Quinolones Allergy Unknown Hives Verified 02/24/23 14:33 ibuprofen AdvReac Unknown Other Verified 02/24/23 14:33 Review of Systems Review of Systems: CONSTITUTIONAL: Denies fever CARDIOVASCULAR: Reports chest pain. Denies edema. RESPIRATORY: Reports cough and dyspnea. All systems reviewed & are unremarkable except as noted in HPI and below PMFSH Past Medical History Medical History Anxiety Arthritis of left hip Breast cancer Right-sided breast cancer in 2006 status post chemotherapy and radiation. Bulging discs Hiatal hernia with GERD History of MRSA infection Secondary to Port-A-Cath. Hyperlipidemia Hypertension (~2004) Hypothyroidism (~1994) Insomnia Lupus Thrombocytosis Type 2 diabetes mellitus (~2016) Was 6.3 in May 2018. Surgical History Surgical History H/O dilation and curettage H/O laparoscopy H/O left wrist surgery History of appendectomy . History of foot surgery Right foot 2nd digit surgery. History of right knee surgery Repair of meniscal tear. History of total abdominal hysterectomy and bilateral salpingo-oophorectomy Hx of cholecystectomy . Hx of tonsillectomy Status post right breast lumpectomy In 2005 for breast cancer. Family History Family History Mother Family history of blood dyscrasia Father Family history of heart disease in male family member before age 55 Family history of elevated blood lipids Family history of coronary artery disease Carcinoma of colon Hypertension Grandparent Diabetes mellitus Sibling Acute Crohn's disease Other Family history of congenital heart disease Family history of diabetes mellitus in first degree relative Family history of malignant neoplasm Family history of malignant neoplasm of breast in first degree relative Family history of rheumatoid arthritis Social History Social History Social History: The patient lives in her own home in [place], [place]. She smoked for only a few months as a teenager. She consumes alcohol rarely and on social occasions, in moderation. No illicit drug use. 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 Faisal as her surrogate decision maker and is wishing to be a full code. Smoking status: Never smoker Tobacco type: cigarettes Second hand tobacco smoke exposure: No Additional smoking assessment comments: Smoked for two months as teenager Alcohol intake: never Drinks per
[2023-04-23 23:14] LABS: D Dimer < 0.27 ug/mL (<0.48)
--- NOTE | 2023-04-24 00:57 | ECG_ITS ---
Measurements Intervals [place] Rate: 67 P: 20 [place]: 115 QRS: -26 QRSD: 90 T: -6 QT: 399 QTc: 422 Interpretive Statements SINUS RHYTHM WITH SHORT [place] INTERVAL LEFT VENTRICULAR HYPERTROPHY DELAYED PRECORDIAL R/S TRANSITION BORDERLINE T WAVE ABNORMALITY- INFERIOR LEADS COMPARED TO ECG 04/23/2023 21:41:02 NO SIGNIFICANT CHANGES Electronically Signed On 04-24-2023 9:48:57 CDT by Ubaldo Ya D.O.
[2023-04-24 01:25] LABS: Troponin I < 0.012 ng/mL (0.000-0.034)
[2023-04-24 01:41] VITALS: BP 187/77; PULSE 74; RESP 16; O2SAT 99
== END 2023-04-24 01:45 | disposition home or self-care (01) ==
PROVIDERS: Emergency Medicine; Emergency Provider Physician Assistant; PCP Family Medicine
DX: I11.0 Hypertensive heart disease with heart failure (principal); I50.9 Heart failure, unspecified; E78.5 Hyperlipidemia, unspecified; E03.9 Hypothyroidism, unspecified; E11.9 Type 2 diabetes mellitus without complications; Z85.3 Personal history of malignant neoplasm of breast
CPT/HCPCS: 36415; 71046; 80053; 83690; 83880; 84484; 85025; 85380; 85610; 85730; 93005; 99284; A9270

== ENCOUNTER 2023-12-07 19:33 | Emergency (ER) | payer MEDICARE, MEDICAID, SELFPAY ==
[2023-12-07] VITALS (11 sets, daily range): BP systolic 167–201; BP diastolic 63–88; PULSE 63–76; RESP 15–27; TEMP 36.4–36.9; O2SAT 97–100
--- NOTE | ~2023-12-07 | XR_ITS ---
EXAMINATION: XR chest 1V portable DATE: 12/07/2023 20:13 INDICATION: Shortness of breath TECHNIQUE: frontal view of the chest was obtained. COMPARISON: Chest radiograph dated 05/03/2023 FINDINGS: The lungs are clear with no focal airspace opacities, pulmonary edema, pleural effusion or pneumothor ax. The cardiomediastinal silhouette is normal. Cholecystectomy clips in right upper quadrant. Additi onal surgical clips at the right breast. IMPRESSION: 1. No acute cardiopulmonary disease. Reviewed, dictated and finalized at location A.
--- NOTE | 2023-12-07 19:38 | ECG_ITS ---
Test Date: 2023-12-07 19:56:06 Measurements Intervals [place] Rate: 67 P: 18 [place]: 146 QRS: -29 QRSD: 101 T: -2 QT: 411 QTc: 436 Interpretive Statements SINUS RHYTHM VOLTAGE CRITERIA FOR LVH [MEETS CRITERIA IN ONE OF: R(aVL), S(V1), R(V5), R(V5/V6)+S(V1)] POSSIBLE ANTERIOR MYOCARDIAL INFARCTION , PROBABLY OLD [30 ms Q WAVE IN V3/V4, OR R < 0.2 mV IN V4] No previous ECG available for comparison Electronically Signed On 12-08-2023 09:39:07 CDT by Lanny Ram M.D.
--- NOTE | 2023-12-07 19:55 | ED_ITS ---
HPI - General Adult General Chief complaint: Shortness of Breath/Dyspnea Stated complaint: CHF, feet are swollen and ankles; SOB Time Seen by Provider: 12/07/23 19:40 History of Present Illness HPI narrative: Patient is a 63-year-old female who presents to the emergency department this e [facility] complaining of shortness of breath and swelling to her bilateral lower extremity. Patient admits that she does have a history of congestive heart failure for over 20 years and states that she has noticed that her swelling has been getting worse over the past few days. Patient states that this evening she started to have some shortness of breath so she decided to come in and get evaluated. She denies any chest pain, admits to having 1 episode of nausea / vomiting after she ate but currently denies any nausea or vomiting, denies any abdominal pain, dysuria or hematuria and denies any fevers or chills at home. There are no additional modifying, alleviating, or precipitating factors at this time. Related Data Home Medications Medication Instructions Recorded Confirmed albuterol sulfate 90 mcg/actuation 2 puff inhalation Q4-5H PRN Dyspnea 05/21/21 07/22/23 aerosol inhaler pantoprazole 40 mg tablet,delayed 40 mg PO QAM 05/21/21 07/22/23 release trazodone 100 mg tablet 100 mg PO HS 05/21/21 07/22/23 bumetanide 0.5 mg tablet 0.5 mg PO DAILY 06/03/23 07/22/23 aripiprazole 2 mg tablet 2 mg PO DAILY 07/22/23 07/22/23 duloxetine 20 mg capsule,delayed mg PO 07/22/23 07/22/23 release fluticasone 250 mcg-salmeterol 50 1 inh inhalation BID 07/22/23 07/22/23 mcg/dose blistr powdr for inhalation Allergies Allergy/AdvReac Type Severity Reaction Status Date / Time adhesive Allergy Unknown Blister Verified 07/22/23 15:07 ciprofloxacin Allergy Unknown Hives Verified 07/22/23 15:07 hydroxychloroquine Allergy Unknown Hives Verified 07/22/23 15:07 metronidazole Allergy Unknown Other Verified 07/22/23 15:07 Quinolones Allergy Unknown Hives Verified 07/22/23 15:07 ibuprofen AdvReac Unknown Other Verified 07/22/23 15:07 Review of Systems Review of Systems: All systems are reviewed and are negative unless stated otherwise in the HPI. [facility] Past Medical History Medical History Anxiety Arthritis of left hip Breast cancer Right-sided breast cancer in 2006 status post chemotherapy and radiation. Bulging discs Hiatal hernia with GERD History of MRSA infection Secondary to Port-A-Cath. Hyperlipidemia Hypertension (~2004) Hypothyroidism (~1994) Insomnia Lupus Thrombocytosis Type 2 diabetes mellitus (~2016) Was 6.3 in May 2018. Surgical History Surgical History H/O dilation and curettage H/O laparoscopy H/O left wrist surgery History of appendectomy . History of foot surgery Right foot 2nd digit surgery. History of right knee surgery Repair of meniscal tear. History of total abdominal hysterectomy and bilateral salpingo-oophorectomy Hx of cholecystectomy . Hx of tonsillectomy Status post right breast lumpectomy In 2005 for breast cancer. Family History Family History Mother Family history of blood dyscrasia Father Family history of heart disease in male family member before age 55 Family history of elevated blood lipids Family history of coronary artery disease Carcinoma of colon Hypertension Grandparent Diabetes mellitus Sibling Acute Crohn's disease Other Family history of congenital heart disease Family history of diabetes mellitus in first degree relative Family history of malignant neoplasm Family history of malignant neoplasm of breast in first degree relative Family history of rheumatoid arthritis Social History Social History Social History: The patient lives in her own home in [place], [place]. She smoked for only a few months as a teenager. She consumes alcohol rarely and on social occasions, in moderation. No illicit drug use. 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 Faisal as her surrogate decision maker and is wishing to be a full code. Smoking status: Never smoker Tobacco type: cigarettes Second hand tobacco smoke exposure: No Additional smoking assessment comments: Smoked for two months as teenager Alcohol intake: never Drinks per week: 0 Substance use: never Substance use type: does not use Other substance usage details: former marijuana use Do You Feel Safe in your Home?: Yes Lack of Transportation: No Lack of Food: Never True Current Housing: I Have Housing Concerned About Future Housing: No Difficulty Paying Gas/Electric Bills: No Difficulty Paying for Meds: No Currently Unemployed: No Education: High School Diploma/GED Difficulty w/ Childcare or Family Care: No Living arrangements: alone Gender identity (if verbalized by the patient): Female Spiritual care concerns: No Agree to blood products: Yes Exam Narrative: General: Alert, awake, afebrile, in no acute distress. HEENT: PERRL, no rhinorrhea, no post nasal drip, oropharynx clear. Cardiovascular: Regular rate and rhythm, no murmurs, rubs or gallops, mild bilateral lower extremity edema. Respiratory: Clear to auscultation bilaterally, no tachypnea, no wheezing, no rhonchi, no rubs, no respiratory distress. Abdomen: Soft, nontender, nondistended, no rebound, no guarding, no peritoneal signs. Musculoskeletal: No joint swelling or deformity, normal muscle tone. Skin: No rashes or petechia, no signs of infection. Neurological: Alert and oriented to person, place, and time. Follows all commands. No focal deficits, speech is clear and fluent. Course Vital Signs Vital signs: Vital Signs Temperature 97.6 F 12/07/23 19:35 Pulse Rate 69 12/07/23 19:35 Respiratory Rate 15 12/07/23 19:35 Blood Pressure 170/63 H 12/07/23 19:35 Pulse Oximetry 100 12/07/23 19:35 Oxygen Delivery Room Air 12/07/23 19:35 Temperature 98.4 F 12/07/23 22:15 Pulse Rate 76 12/07/23 22:15 Respiratory Rate 20 12/07/23 22:15 Blood Pressure 174/88 H 12/07/23 22:29 Pulse Oximetry 100 12/07/23 22:15 Oxygen Delivery Room Air 12/07/23 19:58 Medical Decision Making MDM Narrative Medical decision making narrative: The patient was evaluated by myself in the emergency department. History is obtained from patient who is an independent historian and physical exam was performed. External medical records were reviewed at this time. IV was e stablished and pertinent tests were ordered. EKG was obtained which revealed sinus rhythm rate of 67 beats per minute,evidence of acute ischemia. EKG was independently interpreted by me and is currently pending official cardiology read. Laboratory results obtained revealing a potassium of 2.8 and add a BNP of 2290 otherwise no acute process. Potassium was re-checked for verification and noted to be accurate. Patient was administered 80 mEq of oral potassium. Imaging studies obtained included CXR which was independently interpreted by me revealing no acute cardiopulmonary process, which is pending final radiology interpretation. Differential diagnosis considerations include CHF exacerbation, acute viral syndrome, infectious process such as pneumonia. Comorbidities impacting this visit include history of CHF. I have evaluated and discussed social determinants of health with the patient that could potentially impact subsequent diagnosis and treatment plans. On repeat assessment of the patient, reevaluation revealed that the patient is doing well and is in no acute distress. Patient symptoms have improved since she arrived to our emergency department. Repeat vital signs were all reviewed and noted to be stable. Differential diagnosis and treatment plan were discussed with the patient at bedside. Patient agrees with discussion and after shared medical decision making agrees with discharge. All questions were answered to the patient's satisfaction. Patient will follow up with her artificial glass eye maker in 3-5 days. Patient was instructed that she needs to have her potassium level rechecked and she is agreeable. She was also encouraged to wear compression stockings as this will help with her lower extremity edema. Patient was provided with strict return precautions and instructed to return to the emergency department if any new or worsening symptoms develop. The patient was discharged in stable condition. Vital Signs Vital Signs: Vital Signs Temperature 97.6 F 12/07/23 19:35 Pulse Rate 69 12/07/23 19:35 Respiratory Rate 15 12/07/23 19:35 Blood Pressure 170/63 H 12/07/23 19:35 Pulse Oximetry 100 12/07/23 19:35 Oxygen Delivery Room Air 12/07/23 19:35 Temperature 98.4 F 12/07/23 22:15 Pulse Rate 76 12/07/23 22:15 Respiratory Rate 20 12/07/23 22:15 Blood Pressure 174/88 H 12/07/23 22:29 Pulse Oximetry 100 12/07/23 22:15 Oxygen Delivery Room Air 12/07/23 19:58 Lab Data 12/07/23 19:54 12/07/23 21:41 Labs: Lab Results 12/07/23 12/07/23 12/07/23 Range/Units 19:54 20:13 21:41 WBC 6.1 (4.5-10.0) K/mm3 RBC 5.26 (4.2-5.4) M/mm3 Hgb 14.8 (12.0-15.0) g/dL Hct 44.5 (37.0-47.0) % MCV 84.6 (80-100) fl MCH 28.1 (26-34) pg MCHC 33.3 (32-36) g/dl RDW 14.4 (11.5-14.5) % Plt Count 490 H (150-375) k/mm3 MPV 8.8 (7.4-10.4) fl Immature Gran % (Auto) 0.7 H (0-0.5) % Neut % (Auto) 76.8 H (45.5-73.1) % Lymph % (Auto) 12.7 L (18.3-44.2) % Roberts % (Auto) 7.3 (2.6-8.5) % Eos % (Auto) 2.0 (0-4.4) % Baso % (Auto) 0.5 (0.2-1.2) % Lymph # (Auto) 0.78 L (0.9-3.2) K/mm3 Roberts # (Auto) 0.5 (0.1-0.6) K/mm3 Eos # (Auto) 0.1 (0-0.3) K/mm3 Baso # (Auto) 0.0 (0.0-0.1) K/mm3 Abs Immat Gran (auto) 0.04 H (0.00-0.031) K/mm3 Absolute Neuts (auto) 4.7 (1.3-6.7) K/mm3 Absolute Nucleated RBC 0.000 (0.0-0.012) K/mm3 Nucleated RBC % 0.0 (0.0-0.2) % Sodium 138 138 (137-145) mmol/L Potassium 2.8 L* 2.9 L (3.4-5.0) mmol/L Chloride 100 103 (98-107) mmol/L Carbon Dioxide 29 29 (22-30) mmol/L Anion Gap 9 6 (4-12) mmol/L BUN 15 D (7-17) mg/dL Creatinine 0.90 (0.7-1.0) mg/dL Estim Creat Clear Calc 51 ml/min Estimated GFR > 60 (59 - ) Glucose 76 (65-110) mg/dL Calcium 9.0 (8.4-10.2) mg/dL Magnesium 1.8 (1.6-2.3) mg/dL Total Bilirubin 1.5 H (0.2-1.3) mg/dL AST 35 (14-36) U/L ALT 36 H (6-35) U/L Alkaline Phosphatase 102 (38-126) U/L NT-Pro-B Natriuret Pep 2290 H (19.9-100) pg/mL Total Protein 7.0 (6.3-8.2) g/dL Albumin 4.2 (3.5-5.1) g/dL Influenza A (RT-PCR) Negative (Negative) Influenza B (RT-PCR) Negative (Negative) SARS-CoV-2 RNA (RT-PCR) Negative (Negative) Discharge Plan Discharge Clinical Impression: SOB (shortness of breath), Acute hypokalemia, Hypertension Patient Disposition: Home, Self-Care Condition: Improved Instructions: Antibiotic Form, Hypokalemia (ED), Hypertension (ED), Shortness of Breath (ED) Additional Instructions: Please follow-up with your artificial glass eye maker within the next 3-5 days. Your potassium level was low today and you were administered 60 mEq of oral potassium. You will need to have your potassium recheck by your artificial glass eye maker within the next 3-5 days. Return to the emergency department if any new or worsening symptoms develop. You also encouraged to wear compression stockings as this will help prevent lower extremity edema. Prescriptions: No Action bumetanide 0.5 mg tablet 0.5 mg PO DAILY duloxetine 20 mg capsule,delayed release(DR/EC) PO aripiprazole 2 mg tablet 2 mg PO DAILY fluticasone propion-salmeterol 250-50 mcg/dose blister with device 1 inh inhalation BID atorvastatin 20 mg tablet 20 mg PO DAILY Qty: 90 1RF trazodone 100 mg tablet 100 mg PO HS albuterol sulfate 90 mcg/actuation HFA aerosol inhaler 2 puff INHALATION Q4-5H PRN (Reason: Dyspnea) pantoprazole 40 mg tablet,delayed release (DR/EC) 40 mg PO QAM Rx Instructions: TAKE 1 TABLET EVERY MORNING montelukast [Singulair] 10 mg tablet 10 mg PO DAILY Qty: 90 3RF carvedilol 12.5 mg tablet 12.5 mg PO Q12H Qty: 180 2RF Rx Instructions: must administer with a meal/food lisinopril 10 mg tablet 10 mg PO BID Qty: 180 2RF Follow-up/Referrals: Ubaldo Ya DO [Physician] - 3 Days PHYSICIAN NOT ON STAFF,NONSTAFF [Non-Staff] - Time of Disposition: 22:05
[2023-12-07 20:16] LABS: Basophils Percent Auto 0.5 % (0.2-1.2); Eosinophils Absolute Auto 0.1 K/mm3 (0-0.3); Hematocrit 44.5 % (37.0-47.0); Hemoglobin 14.8 g/dL (12.0-15.0); Immature Granulocyte Absolute 0.04 K/mm3 (0.00-0.031); Immature Granulocyte Percent A 0.7 % (0-0.5); Lymphocytes Absolute Auto 0.78 K/mm3 (0.9-3.2); Lymphocytes Percent Auto 12.7 % (18.3-44.2); Mean Corpuscular HGB Conc 33.3 g/dl (32-36); Mean Corpuscular Hemoglobin 28.1 pg (26-34); Mean Corpuscular Volume 84.6 fl (80-100); Mean Platelet Volume 8.8 fl (7.4-10.4); Monocytes Absolute Auto 0.5 K/mm3 (0.1-0.6); Monocytes Percent Auto 7.3 % (2.6-8.5); Neutrophils Absolute Auto 4.7 K/mm3 (1.3-6.7); Neutrophils Percent Auto 76.8 % (45.5-73.1); Platelet Count Result 490 k/mm3 (150-375); Red Blood Count 5.26 M/mm3 (4.2-5.4); Red Cell Distribution Width 14.4 % (11.5-14.5); White Blood Count 6.1 K/mm3 (4.5-10.0)
[2023-12-07 20:39] LABS: Alanine Aminotransferase 36 U/L (6-35); Albumin Level 4.2 g/dL (3.5-5.1); Alkaline Phosphatase 102 U/L (38-126); Anion Gap 9 mmol/L (4-12); Aspartate Amino Transferase 35 U/L (14-36); Bilirubin,Total 1.5 mg/dL (0.2-1.3); Blood Urea Nitrogen 15 mg/dL (7-17); Carbon Dioxide 29 mmol/L (22-30); Chloride 100 mmol/L (98-107); Estimated CRCL calculation 51 ml/min; Estimated Glomerular Filt Rate > 60; Glucose 76 mg/dL (65-110); Potassium 2.8 mmol/L (3.4-5.0); Sodium 138 mmol/L (137-145)
[2023-12-07 20:51] LABS: NT Pro B Type Natriuretic Pept 2290 pg/mL (19.9-100)
[2023-12-07 20:52] LABS: Influenza A QL RT-PCR Negative (Negative); Influenza B QL RT-PCR Negative (Negative); SARS-CoV-2 RNA PCR Negative (Negative)
[2023-12-07 21:07] LABS: Magnesium 1.8 mg/dL (1.6-2.3)
[2023-12-07] MEDS: POTASSIUM CHLORIDE 20 MEQ ER TABLET PO ×2 (21:10→22:15)
[2023-12-07] MEDS: POTASSIUM CHLORIDE 20 MEQ PACKET (FOR LIQUID) 40 MEQ PO (21:10)
[2023-12-07 21:56] LABS: Anion Gap 6 mmol/L (4-12); Carbon Dioxide 29 mmol/L (22-30); Chloride 103 mmol/L (98-107); Potassium 2.9 mmol/L (3.4-5.0); Sodium 138 mmol/L (137-145)
== END 2023-12-07 22:43 | disposition home or self-care (01) ==
PROVIDERS: Emergency Medicine; Emergency Provider Emergency Medicine
DX: R06.02 Shortness of breath (principal); E87.6 Hypokalemia; I11.0 Hypertensive heart disease with heart failure; I50.9 Heart failure, unspecified; F41.9 Anxiety disorder, unspecified; E78.5 Hyperlipidemia, unspecified; E03.9 Hypothyroidism, unspecified; E11.9 Type 2 diabetes mellitus without complications; M32.9 Systemic lupus erythematosus, unspecified; Z85.3 Personal history of malignant neoplasm of breast; Z20.822 Contact with and (suspected) exposure to COVID-19
CPT/HCPCS: 36415; 71045; 80051; 80053; 83735; 83880; 85025; 87636; 93005; 99284; A9270

== ENCOUNTER 2024-06-27 07:57 | Outpatient (CLI) | payer MEDICARE, MEDICAID, SELFPAY ==
--- OUTSIDE RECORDS SUMMARY | 2024-06-27 08:00 | XMS_ITS | Clinical Summary ---
Author Organization [facility] Care Team Providers Care Slater Apprentice Name Role Phone Dilcia Sumner Consuelo [facility] Primary Care Provider [phone] Allergies Active Allergy Reactions Criticality Noted Date Comments Ciprofloxacin Rash High 03/17/2015 Codeine Nausea Low 05/04/2019 Hydroxychloroquine Rash High 03/17/2015 Ibuprofen Other (see Comments) 12/22/2012 hx stomaCH ULCER Latex Other (see Comments) High 03/17/2015 Blister and rash contact Metronidazole Unknown Low 12/16/2020 Hydrocodone-Acetaminophen Nausea,Vomiting High 11/11 Severe vomiting Medications albuterol 108 (90 Base) MCG/ACT Aerosol Solution take 2 Puffs by inhalation every 4 hours as needed for Wheezing or Cough. 36 g 1 022 Active levothyroxine (SYNTHROID) 100 MCG Tablet Take 1 Tablet by mouth daily. 90 Tablet 3 022 Active lisinopril (PRINIVIL, ZESTRIL) 5 MG Tablet Take 1 Tablet by mouth daily. 90 Tablet 3 Active Blood Glucose Monitoring Suppl Device Diagnosis: Diabetes type 2 Blood testing frequency: once a day 1 Each Active Misc. Devices MiscIndications:Typ e 2 diabetes mellitus without complication, without long-term current use of insulin Supply and instructions: 1 Each Active Blood Glucose Monitoring Suppl (True Metrix Meter) w/Device Kit Use once daily to check blood glucose 1 Kit Active Glucose Blood (True Metrix Blood Glucose Test) StripIndications:Ty pe 2 diabetes mellitus without complication, without long-term current use of insulin Use to check blood glucose daily 100 Strip 3 022 Active atorvastatin (LIPITOR) 20 MG Tablet TAKE 1 TABLET EVERY DAY 90 Tablet 1 022 Active cetirizine (ZyrTEC) 10 MG Tablet TAKE 1 TABLET EVERY DAY 90 Tablet 1 022 Active carvedilol (COREG) 6.25 MG Tablet TAKE 1 TABLET TWICE DAILY 180 Tablet 1 Active FeroSul 325 (65 Fe) MG Tablet TAKE 1 TABLET EVERY DAY 90 Tablet 1 Active omeprazole (PriLOSEC) 40 MG CAPSULE DELAYED RELEASE TAKE 1 CAPSULE EVERY DAY 90 Capsule 1 Active Allopurinol 200 MG Tablet Take 200 mg by mouth daily. Active DULoxetine HCl [address] Particles Take 20 mg by mouth daily. 023 Active glipiZIDE (GLUCOTROL XL) 5 MG TABLET SR 24 HR Take 5 mg by mouth. 04/23 024 Active potassium chloride CR (KLORCON) 10 MEQ Tablet Controlled Release Take 1 Tablet by mouth daily. 30 Tablet 024 Active aspirin EC 81 MG Tablet Delayed ResponseIndications :essential thrombocytopenia Take 81 mg by mouth daily. Indications: essential thrombocytopenia Active furosemide (LASIX) 20 MG Tablet Take 20 mg by mouth daily. 025 Active Ozempic, 0.25 or 0.5 MG/DOSE, 2 MG/3ML Solution Pen-injector INJECT 1/2 (ONE-HALF) MG SUBCUTANEOUSLY ONCE A WEEK 025 Active traMADol (ULTRAM) 50 MG TabletIndications:L eft wrist pain Take 1 Tablet by mouth every 6 hours as needed for Moderate or more severe pain for up to 2 days. 8 Tablet 025 2024 Active Problems Problem Noted Date Diagnosed Date Folic acid deficiency 08/06/2023 Iron deficiency 05/17/2023 Iron deficiency anemia, unspecified 05/17/2023 Thrombocytosis 05/16/2023 Stage 3 chronic kidney disease 05/16/2023 Splenomegaly 05/16/2023 Contusion of left hip 07/10/2021 Hypothyroidism 07/10/2021 Frequent falls 07/10/2021 Essential hypertension 11/12/2020 Type 2 diabetes mellitus wit hout complication, without long-term current use of insulin 11/12/2020 Chronic systolic congestive heart failure 2020 Gastroesophageal reflux disease 11/12/2020 BMI 34.0-34.9,adult 11/12/2020 Pure hypercholesterolemia 11/12/2020 History of right breast cancer 11/12/2020 Encounters Date Type Department Care Team Description 05/27/2024 5:45 PM CDT Ur[facility] [address] [place] [id number] Taylor Neri APRN, MARYANNE Left wrist pain (Primary Dx) Discharge Disposition: Discharged to home or Selfcare 05/27/2024 Travel 05/22/2024 [facility] [address] [place] [address] Dilcia Sumner Consuelo, PAC 05/17/2024 Transcribe Orders [facility] Central Scheduling [address] [place] [address] Chanel Nascimento APRN, INSTRUMENT MAKER Encounter for screening mammogram for breast cancer (Primary Dx) from Last 3 Months Immunizations Immunization Administration Dates Next Due Covid-19, Mrna, Lnp-s, Pf, 30 Mcg/0.3 Ml Dose (P fizer) 06/06/2020,05/02/2020 Influenza Vaccine greater than 3 yrs 10/29/2014 Influenza Vaccine, MDCK,quadrivalent, pres free 10/21/2020 Influenza Vaccine, Quadrivalent, PF 10/17/2014 Influenza, Seasonal, Injectable, Undefined 10/29,11/18/2012 Pneumococcal Vaccine Adult - 23 Valent Zoster Vaccine Recombinant 03/05/2019 Family History Medical History Relation Name Comments AIDS/HIV Brother 1 No Known Problems Brother 2 Seizures Brother 3 Epilepsy Colon Cancer Father Heart Attack Father Heart Disease Father Pacemaker Father No Known Problems Mother Chronic Obstructive Pulmonary Disease Sister 1 Crohn's Disease Sister 1 Parkinsonism Sister 2 Relation Name Status Comments Brother 1 Brother 2 Alive Brother 3 Alive Father Alive Mother Sister 1 Alive Sister 2 Alive Social History Tobacco Use Types Packs/Day Years Used Date Smoking Tobacco: Never Smokeless Tobacco: Never Tobacco Cessation:Counseling Given: Not Answered Alcohol Use Standard Drinks/Week Comments Yes 0 (1 standard drink = 0.6 oz pur e alcohol) Socially PHQ-2 Answer Date Recorded Total Score - Questions 1-9 0 03/18 Comments No Sex and Gender Information Value Date Recorded Sex Assigned at Not on file Legal Sex Female 9:51 AM CDT Gender Identity Not on file Sexual Orientation Not on file Occupation Industry Job Start Date Job End Date [employer] Not on file Not on file Not on file Last Filed Vital Signs Vital Sign Reading Time Taken Comments Blood Pressure 138/62 05/27/2024 5:50 PM CDT Pulse 80 05/27/2024 5:50 PM CDT Temperature 36.5 C (97.7 F) 05/27/2024 5:50 PM CDT Respiratory Rate 16 05/27/2024 5:50 PM CDT Oxygen Saturation 100% 11/22/2023 2:50 PM CDT Inhaled Oxygen Concentration - - Weight 68.5 kg (151 lb) 11/22/2023 2:50 PM CDT Height 154.9 cm (5' 1) 11/22/2023 2:50 PM CDT Body Mass Index 28.53 11/22/2023 2:50 PM CDT Plan of Treatment Health Maintenance Due Date Last Done Comments Diabetes: Foot Exam 1960 Hepatitis C Virus (HCV) Screening 1960 TdaP Immunization 1960 Pap Smear 04/22/1983 Cervical Cancer Screening (CCS) 1992 HPV/Cotest 1992 Colonoscopy 04/22/2007 Colorectal Cancer Screening 04/22/2007 Cologuard 2012 Immunochemical Fecal Occult Blood 2012 Zoster Immunization (2 of 2) 04/30/2019 03/05/2019 Diabetes: Eye Exam 02/23/2022 02/23/2021 Respiratory Syncytial Virus (RSV) Immunization (Adult) (1 - Risk 60-74 years 1-dose series) 2022 Diabetes: Hemoglobin A1c 01/13/2024 024, 05/02/2023, 04/22/2023, Additional history exists SARS-COV-2 Immunization (5 - Pfizer risk season) 2024 12/21/2023, 04/01/2022, 06/06/2020, Additional history exists Mammogram 11/01/2024 11/02/2023, 04/15, 05/03/2022, Additional history exists Diabetes: Nephropathy Screening 05/15/2025 05/15/2024, 10/11/2023, 05/16/2023, Additional history exists Pneumococcal Immunization (50+ years) Completed 04/01/2022, 10/21/2020 Pneumococcal Immunization Combined Discontinued 04/01/2022, 10/21/2020 Mammogram Unilateral Discontinued 11/02/2023, 05/03/2022, 05/03/2022, Additional history exists Influenza Immunization Completed , 10/21/2020, 10/29/2014, Additional history exists Hepatitis B Immunization Aged Out No longer eligible based on patient's age to complete this topic Meningococcal Immunization (ACWY) Aged Out No longer eligible based on patient's age to complete this topic Rotavirus Immunization Aged Out No lo nger eligible based on patient's age to complete this topic Medical Devices Implanted Type Area Putty Tinter Maker Device Identifier Shelf Expiration Date Model / Serial / Lot 06/15/2021 Implanted:06/16/19 22 by Rafael Mckenna MD (Quantity not on file) Description: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 Procedures Procedure Name Priority Date/Time Associated Diagnosis Comments [facility] SCREENING BILATERAL DIGITAL W CAD W JUANA Routine 11/02/2023 1:34 PM CDT Encounter for screening mammogram for malignant neoplasm of breast CMP (COMPREHENSIVE METABOLIC PANEL) Routine 10/11/2023 3:13 PM CDT Essential thrombocytosis (HCC) Iron deficiency anemia, unspecified iron deficiency anemia type Folic acid deficiency HEMOGLOBIN, A1C 05/02/2023 12:00 AM CDT HM DILATED EYE EXAM 02/23/2021 12:00 AM CONSTRUCTION CONTRACTOR from Last 3 Months or Most Recently Relevant to Health Maintenance Results * HEATHER SCREENING BILATERAL DIGITAL W CAD W JUANA (11/02/2023 1:34 PM CDT) Anatomical Region Laterality Modality breast Bilateral Mammography 11/02/2023 1:21 PM CDT Narrative 11/09/2023 10:28 AM CDT - HEATHER SCREENING BILATERAL DIGITAL W CAD W JUANA BILATERAL DIGITAL SCREENING MAMMOGRAM 3D/2D WITH CAD WITH MEDIOLATERAL OBLIQUE CRANIOCAUDAL: 11/02/2023 The study was acquired using digital technology and interpreted from soft copy. Current study was also evaluated with ICAD version 7.2. 2D digital mammographic views, as well as 3D digital tomosynthesis were performed in the CC and MLO projections. CLINICAL: Patient has no complaints. Previous history of breast cancer. Sister with premenopausal breast cancer in her forties. Due to patient habitus, additional images were taken in an effort to obtain adequate breast tissue. COMPARISONS: Comparison is made to exams dated: 04/30/2021, 04/14/2020, and 04/13/2019 [facility]. BREAST TISSUE:There are scattered areas of fibroglandular density. FINDINGS: There are benign post operative findings in the right breast. No significant masses, calcifications, or other findings are seen in either breast. There has been no significant interval change. IMPRESSION: BENIGN There is no mammographic evidence of malignancy. A 1 year screening mammogram is recommended. A letter will be sent to the patient with these results. The patient will be entered into a reminder system with a target due date of 1 year for her next screening exam. Electronically signed by: Kourtney khan/dave:11/08/2023 16:32:32 Surface Ship Usw Supervisor(s): RT Thao(R)(M), [facility] letter sent: Normal Exam Reading location: [facility] Mammogram BI-RADS: Category 2: Benign Procedure Note Kourtney Carmona MD - 11/09/2023 - HEATHER SCREENING BILATERAL DIGITAL W CAD W JUANA BILATERAL DIGITAL SCREENING MAMMOGRAM 3D/2D WITH CAD WITH MEDIOLATERAL OBLIQUE CRANIOCAUDAL: 11/02/2023 The study was acquired using digital technology and interpreted from soft copy. Current study was also evaluated with ICAD version 7.2. 2D digital mammographic views, as well as 3D digital tomosynthesis were performed in the CC and MLO projections. CLINICAL: Patient has no complaints. Previous history of breast cancer. Sister with premenopausal breast cancer in her forties. Due to patient habitus, additional images were taken in an effort to obtain adequate breast tissue. COMPARISONS: Comparison is made to exams dated: 04/30/2021, 04/14/2020, and 04/13/2019 [facility]. BREAST TISSUE:There are scattered areas of fibroglandular density. FINDINGS: There are benign post operative findings in the right breast. No significant masses, calcifications, or other findings are seen in either breast. There has been no significant interval change. IMPRESSION: BENIGN There is no mammographic evidence of malignancy. A 1 year screening mammogram is recommended. A letter will be sent to the patient with these results. The patient will be entered into a reminder system with a target due date of 1 year for her next screening exam. Electronically signed by: Kourtney khan/dave:11/08/2023 16:32:32 Surface Ship Usw Supervisor(s): RT Thao(R)(M), [facility] letter sent: Normal Exam Reading location: [facility] Mammogram BI-RADS: Category 2: Benign us None Provider IMG MAMMO ORDERABLES Final Resul t * (ABNORMAL) CMP (COMPREHENSIVE METABOLIC PANEL) (10/11/2023 3:13 PM CDT) SODIUM 141 136 - 145 mmol/L 10/11/2023 4:15 PM CDT [facility] POTASSIUM 2.8(L) 3.5 - 5.1 mmol/L 10/11/2023 4:15 PM CDT [facility] CHLORIDE 107 98 - 107 mmol/L 10/11/2023 4:15 PM CDT [facility] CO2, VENOUS 24 22 - 30 mmol/L 10/11/2023 4:15 PM CDT [facility] ANION GAP 12.8 <18.0 mmol/L 10/11/2023 4:15 PM CDT [facility] GLUCOSE 95 70 - 99 mg/dL 10/11/2023 4:15 PM CDT [facility] BUN 9(L) 10 - 20 mg/dL 10/11/2023 4:15 PM T [facility] CREATININE, BLOOD 0.75 0.60 - 1.00 mg/dL 10/11/2023 4:15 PM [facility] BUN/CREATININE RATIO 12 12 - 20 ratio 10/11/2023 4:15 PM T [facility] TOTAL PROTEIN 6.6 6.3 - 8.2 g/dL 10/11/2023 4:15 PM CDT [facility] ALBUMIN 4.3 3.5 - 5.0 g/dL 10/11/2023 4:15 PM [facility] A/G RATIO 1.9 1.0 - 2.2 10/11/2023 4:15 PM [facility] CALCIUM 9.2 8.7 - 10.5 mg/dL 10/11/2023 4:15 PM T [facility] T BILI 1.2 0.2 - 1.2 mg/dL 10/11/2023 4:15 PM [facility] SGOT (AST) 23 5 - 34 U/L 10/11/2023 4:15 PM [facility] SGPT (ALT) 23 0 - 55 U/L 10/11/2023 4:15 PM [facility] ALKALINE PHOSPHATASE 86 40 - 150 U/L 10/11/2023 4:15 PM T [facility] IS THE PATIENT REQUIRED TO BE FASTING? No 10/11/2023 4:15 PM [facility] GFR, ESTIMATED >60 >=60 10/11/2023 4:15 PM [facility] Comment: Creatinine Clearance is the preferred criteria for selecting drug dose adjustments in renally impaired patients. The GFR is provided as additional pertinent clinical information. GFR is reported in mL/min/1.73 sq m. Calculation based on the Chronic Kidney Disease Epidemiology Collaboration (CKD- EPI) equation refit without adjustment for race. GFR, EST. >60 >=60 024 4:15 PM CDT [facility] GFR, EST. NONAFRICAN >60 >=60 10/11/2023 4:15 PM CDT [facility] Blood Venipuncture / Unknown 10/11/2023 3:13 PM CDT 10/11/2023 3:13 PM CDT us Dilcia Sumner PAC CHEMISTRY ORDERABLES Carmen l Result Performing Organization Address City/[facility] Co de Phone Number [facility] [address] [place] [address] * HEMOGLOBIN, A1C (05/02/2023 12:00 AM CDT) HGB-A1C 7.9 SCAN 05/02/2023 us Provider Scan CHEMISTRY ORDERABLES Final Resul t Performing Organization Address [facility] Co de Phone Number SCAN * DILATED EYE EXAM (02/23/2021 12:00 AM CONSTRUCTION CONTRACTOR) 02/23/2021 us Not On File Provider PROCEDURE/MINOR SURGICAL OR DERABLES Final Result Performing Organization Address City/[facility]/ZIP Co de Phone Number SCAN from Last 3 Months or Most Recently Relevant to Health Maintenance Insurance MEDICAID [place] MEDICARE C [facility] Advance Directives * Full Code (Latest Code Status on File) Date Activated Date Inactivated Comments 07/28/2021 11:26 AM * Full Code Date Activated Date Inactivated Comments 07/10/2021 1:09 AM 07/11/2021 3:10 PM CPR-Full Jose L atment: FULL ARREST: Attempt Resuscitation/CPR wit intubation and mechanical ventilation. PRE-ARREST: Use entire range of life support measures to stabilize the patient. Care Teams Slater Apprentice Relationship Specialty Start Date End Date Dilcia Sumner [birth year], [address] [place] [address] PCP - General Physician Calf Skinner 08/03/23
--- OUTSIDE RECORDS SUMMARY | 2024-06-27 08:00 | XMS_ITS ---
Author Organization [facility] Address [address] [place] [id number] Care Team Providers Care Complaint Inspector Name Role Phone Ever Strong Primary Care Provider Olinda Espinal Unavailable [phone] REASON FOR VISIT 4 month follow up, Medicare Wellness, Tramadol Hcl 50 Mg Tablet #15 12/03 Vital Signs Height 60 in 02/25/2023 Weight 157.4 lbs 02/25/2023 BMI 30.74 kg/m2 02/25/2023 Encounters Encounter Location Date Provider Diagnosis [facility] Internal Medicine [address] [facility] [place] [address] 02/25/2023 Ever Gloverjuan jose Acquired hypothyroid ism E03.9 ; Diabetes 1.5, managed as type 2 E13.9 ; Congestive heart failure, unspecified HF chronicity, unspecified heart failure type I50.9 ; Other alf (current) drug therapy Z79.899 and BMI 30.0-30.9,adult Z68.30 Assessments Encounter Date Diagnosis (ICD Code) Assessment Notes Treatment Notes Treatment Clinical Notes Section Notes 02/25/2023 Acquired hypothyroidism (ICD-10 - E03.9) 02/25/2023 Diabetes 1.5, 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) 02/25/2023 Congestive heart failure, unspecified HF chronicity, unspecified heart failure type (ICD-10 - I50.9) 02/25/2023 Other alf (current) drug therapy (ICD-10 - Z79.899) 02/25/2023 BMI 30.0-30.9,adult (ICD-10 - Z68.30) 02/25/2023 Other The DASH diet material was printed Plan Of Treatment Treatment Notes Assessment Notes Other The DASH diet materi al was printed Progress Notes * Mayco HUNTOB:1960 (64 yo F)Acc No.[id number]:02/25/2023 Patient: Steph FAY Provider: Ayala Strong MD :1960 A ge:62 Y S ex:Female Date:02/25/2023 Address:[address] [place], [place] [phone] Subjective: * Chief Complaints: * 1 . 4 month follow up, Medicare Wellness. 2. Tramadol Hcl 50 Mg Tablet #15 12/03. * Medical History: Objective: * Vitals: H t:60in, Wt:157.4lbs, BMI:30.74Index. Assessment: * Assessment: 1. A cquired hypothyroidism - E03.9 (Primary) 2 . 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 C ongestive heart failure, unspecified HF chronicity, unspecified heart failure type - I50.9 4 . O ther long line teamster (current) drug therapy - Z79.899 5 . B CA 30.0-30.9,adult - Z68.30 Plan: * Treatment: * Procedure Codes: G 8417 BMI >=30 CALCUATE W/FOLLOWUP * * Electronic signature of Bashir Strong MD on 06/27/2024 at 08:00 AM CDT Sign off status: Pending * Provider: Ayala Strong MD Date: 0 02/25/2023 Generated for Adonay nelson/Sue/eTransmitting on: 0 06/27/2024 08:00 AM CDT
--- OUTSIDE RECORDS SUMMARY | 2024-06-27 08:00 | XMS_ITS ---
Author Organization [facility] Address [address] [facility] [place] [id number] Care Team Providers Care Turntable Worker Name Role Phone Ever Strong Primary Care Provider Olinda Espinal Unavailable [phone] REASON FOR VISIT MEDICARE WELLNESS VISIT Encounters Encounter Location Date Provider Diagnosis [facility] Internal Medicine [address] [facility] [place] [address] 10/28/2023 Ever Strong Plan Of Treatment No Information Progress Notes * Mayco HUNTOB:1960 (64 yo F)Acc No.[id number]:10/28/2023 Patient: Steph FAY Provider: Ayala Strong MD :1960 A ge:63 Y S ex:Female Date:10/28/2023 Address:[address] [place], [place] [phone] Subjective: * Chief Complaints: * 1 . MEDICARE WELLNESS VISIT . * Medical History: Objective: * Vitals: Assessment: Plan: * Treatment: * * Electronic signature of Bashir Strong MD on 06/27/2024 at 08:00 AM CDT Sign off status: Pending * Provider: Ayala Strong MD Date: 10/28/2023 Generated for Adonay nelson/Sue/Marc on: 06/27/2024 08:00 AM CDT
--- OUTSIDE RECORDS SUMMARY | 2024-06-27 08:00 | XMS_ITS | Encounter Summary ---
Author Organization [facility] Address [address] [place] [address] Phone Care Team Providers Care Small Wind Energy Installer Name Role Phone Yovany Sumnerlene Consuelo PAC Primary Care Provider [phone] Encounter Details Date Type Department Care Team (Late st Contact Info) Description 05/22/2024 Telephone [facility] On[facility] [address] [place] [address] Dilcia Sumner Consuelo, PAC [address] [place] [address] Social History Tobacco Use Types Packs/Day Years Used Date Smoking Tobacco: Never Smokeless Tobacco: Never Alcohol Use Standard Drinks/Week Comments Yes 0 [...] file Not on file Not on file documented as of this encounter Miscellaneous Notes * Telephone Encounter - Africa Gutierrez - 05/22/2024 5:10 PM CDT 05/18/24 Left a voicemail at the patient's listed number as well as her emergency contact's listed number that she would need labs completed prior to visit. Patient did not have labs completed. Anotherlab reminder was left at her listed number after the patient no showed 05/22/24 follow up. Patient was also instructed to contact the office to reschedule in the voicemail. documented in this encounter Plan of Treatment Not on file documented as of this encounter Visit Diagnoses Not on filedocumented in this encounter Additional Health Concerns Assessment Noted Time PHQ-9 Depression Total Score: 0 04/09/19 22 10:12 AM WASHROOM OPERATOR documented as of this encounter Care Teams Small Wind Energy Installer Relationship Specialty Start Date End Date Dilcia Sumner July, [address] [place] [address] PCP - General Physician Graduate Teacher Education 08/03/23 documented as of this encounter
--- OUTSIDE RECORDS SUMMARY | 2024-06-27 08:00 | XMS_ITS | Clinical Summary ---
Author Organization [facility] Facility Address [address] [address] Care Team Providers Care Furnace Charger Name Role Phone Sugey Saldaña Primary Care Provider Rayne bryan Allergies Active Allergy Reactions Criticality Noted Date Comments Adhesive Tape Rash Low 06/06/2023 Ciprofloxacin Hives 06/06/2023 Codeine Nausea 06/06/2023 Hydrocodone Hives 06/06/2023 Hydroxychloroquine Hives 06/06/2023 Ibuprofen 06/06/2023 Metronidazole Hives 06/06/2023 Medications albuterol HFA (PROVENTIL HFA;VENTOLIN HFA) 108 (90 Base) MCG/ACT inhaler Inhale 2 puffs every 6 (six) hours if needed for wheezing Active atorvastatin (LIPITOR) 40 MG tablet Take 40 mg by mouth 1 (one) time each day Active multivitamin (THERAGRAN) tablet Take 1 tablet by mouth 1 (one) time each day Active traZODone (DESYREL) 100 MG tablet Take 150 mg by mouth every night Active omeprazole (PriLOSEC) [address] capsule Take 40 mg by mouth 1 (one) time each day Do not crush or chew. Active lisinopril 20 MG tablet Take 20 mg by mouth in the morning and 20 mg in the evening. Active Allopurinol 200 MG tablet Take 200 mg by mouth 1 (one) time each day Active carvedilol (COREG) 12.5 MG tablet Take 12.5 mg by mouth in the morning and 12.5 mg in the evening. Take with meals. Active glipiZIDE (GLUCOTROL XL) 5 MG 24 hr tablet Take 5 mg by mouth 1 (one) time each day Do not crush, chew, or split. Active Active Problems No known active problems Encounters Date Type Department Care Team Description 06/20/2024 Orders Only [facility]. [address] [place] [id number] Leticia Ly MA Stage 3b chronic kidney disease (HCC) (Primary Dx); Hypertension; Proteinuria, not otherwise specified; Type 2 diabetes mellitus with diabetic nephropathy (HCC) 04/20/2024 Orders Only [facility]. [address] [place] [id number] Ele Ly MA Endometrial hyperplasia, not otherwise specified; Cyst of cervix; Stage 3b chronic kidney disease (HCC); Postmenopausal bleeding; Abdominal pain - cause unknown 04/13/2024 Documentation Only [facility]. [address] [place] [id number] Shahriar Blankenship MD 04/13/2024 Documentation Only [facility]. [address] [place] [phone] Shahriar Blankenship MD 04/13/2024 Documentation Only [facility]. [address] [place] [id number] Shahriar Blankenship MD from Last 3 Months Family History Medical History Relation Comments Cancer Father Relation Status Comments Father Alive Mother Social History Tobacco Use Types Packs/Day Years Used Date Smoking Tobacco: Never Smokeless Tobacco: Never Alcohol Use Standard Drinks/Week Comments Yes 0 (1 standard drink = 0.6 oz pur e alcohol) Occasional Comments Unknown Sex and Gender Information Value Date Recorded Sex Assigned at Not on file Legal Sex Female 11:51 AM EDT Gender Identity Not on file Sexual Orientation Not on file Last Filed Vital Signs Vital Sign Reading Time Taken Comments Blood Pressure 129/49 07/29/2023 11:16 AM CDT Pulse 66 07/29/2023 11:16 AM CDT Temperature 36.7 C (98.1 F) 06/22/2023 11:00 AM CDT Respiratory Rate - - Oxygen Saturation 98% 06/22/2023 11:00 AM CDT Inhaled Oxygen Concentration - - Weight 73 kg (161 lb) 07/29/2023 11:16 AM CDT Height 152.4 cm (5') 06/22/2023 11:00 AM CDT Body Mass Index 31.44 06/22/2023 11:00 AM CDT Plan of Treatment Upcoming Encounters Date Type Department Care Team (Late st Contact Info) Description 08/20/2024 10:45 AM CDT Office Visit [facility]. [address] [place] [phone] Shahriar Blankenship MD [address] [place] [address] Health Maintenance Due Date Last Done Comments Breast Cancer Screening 1960 Colorectal Cancer Screening: Annual FOBT 04/22/2011 Colorectal Cancer Screening: Colonoscopy 04/22/2011 Colorectal Cancer Screening: Sigmoidoscopy 04/22/2011 Pneumococcal Vaccine: 50+ Years (2 of 2 - PCV) 10/21/2021 10/21/2020 Diabetes: Ophthalmology Exam 05/17/2023 Diabetes: Pedal Pulse Checked 05/17/2023 Diabetes: Sensory Foot Exam 05/17/2023 Diabetes: Visual Foot Exam 05/17/2023 Diabetes: Hemoglobin A1C 10/13/2023 024, 04/22/2023 Influenza Vaccine (Season Ended) 2024 10/21/2020, 10/17/2014 Pneumococcal Vaccine: Peds ( 0 to 5 Years) and At-Risk Patients (6 to 49 Years) Discontinued 10/21/2020 Hepatitis B Vaccine Aged Out No longe r eligible based on patient's age to complete this topic Procedures Procedure Name Priority Date/Time Associated Diagnosis Comments HEMOGLOBIN A1C Routine 07/13/2023 Stage 3 chronic kidney disease, not otherwise specified (HCC) Hypertension Type 2 diabetes mellitus with diabetic nephropathy (HCC) from Last 3 Months or Most Recently Relevant to Health Maintenance Results * (ABNORMAL) Hemoglobin A1c (07/13/2023) Hemoglobin A1C 6.3(A) 4.0 - 6.0 PRINT /EXTERNAL (NON-INTERFACE D LABS) Blood (Blood, Venous) 07/13/2023 us Shahriar Blankenship MD LAB BLOOD ORDERABLES Final Res ult PRINT/EXTERNAL (NON-INTERFACED LABS) from Last 3 Months or Most Recently Relevant to Health Maintenance Insurance [facility] Medicaid [place] Care Teams Furnace Charger Relationship Specialty Start Date End Date Sugey Saldaña [address] [place] [address] PCP - General Nurse Practitioner 05/17/23
--- OUTSIDE RECORDS SUMMARY | 2024-06-27 08:00 | XMS_ITS | Clinical Summary ---
Author Organization [facility] Address [facility] [place] [address] Care Team Providers Care Atlassian Administrator Name Role Phone Orville Sibley NP Primary Care Provider [phone] Allergies Active Allergy Reactions Criticality Noted Date Comments Ciprofloxacin Hives 10/19/2021 Codeine Nausea Only Low 05/04/2019 Hydrocodone Hives 10/19/2021 Hydrocodone-Acetaminophen Nausea Only,Na usea and Vomiting,Vomiting High 11/11/2020 Severe vomiting Severe vomiting Hydroxychloroquine Hives,Rash High 01/31/2012 Other reaction(s): Hives Ibuprofen Other (see comment) Low 12/22/2012 hx stomaCH ULCER hx stomaCH ULCER hx stomaCH ULCER hx stomaCH ULCER hx stomaCH ULCER hx stomaCH ULCER hx stomaCH ULCER hx stomaCH ULCER hx stomaCH ULCER Latex Other (see comment),Rash,Unkno wn High 12/09/2014 Blister and rash contact Blister and rash contact Metronidazole Hives 10/19/2021 Quinolones Hives 10/19/2021 Tape Unknown,Rash Low 12/16/2020 Medications albuterol sulfate HFA 108 (90 Base) MCG/ACT inhaler Inhale 2 puffs into the lungs every 4 (four) hours as needed for Shortness of breath. 2 Active atorvastatin (LIPITOR) 20 MG tablet Take 1 tablet (20 mg total) by mouth nightly at bedtime. 2 Active multivitamin (THERA) tablet Take 1 tablet by mouth daily. Active traZODone (DESYREL) 100 MG tablet Take 1.5 tablets (150 mg total) by mouth nightly at bedtime. 2 Active omeprazole (PRILOSEC) 40 MG capsule Take 1 capsule (40 mg total) by mouth daily. 2 Active lisinopril (PRINIVIL) 20 MG tablet Take by mouth 2 (two) times a day. 3 Active DULoxetine HCl 40 MG CAPSULE ENTERIC COATED PARTICLES Take 20 mg by mouth daily. 3 Active Allopurinol 200 MG Tab Take 200 mg by mouth 2 (two) times daily. Active levothyroxine (SYNTHROID) 88 MCG tablet Take 1 tablet (88 mcg total) by mouth every morning. 4 Active albuterol (PROVENTIL) (2.5 MG/3ML) 0.083% nebulizer solution Take 3 mLs (2.5 mg total) by nebulization every 4 (four) hours as needed. 4 Active carvedilol (COREG) 12.5 MG tablet Take 1 tablet (12.5 mg total) by mouth 2 (two) times daily. 60 tablet 4 Active empagliflozin (JARDIANCE) 25 MG tablet Take 1 tablet (25 mg total) by mouth daily. 30 tablet 4 Active glipiZIDE XL (GLUCOTROL XL) 5 MG 24 hr tablet Take 1 tablet (5 mg total) by mouth daily with breakfast. Do not break or crush tablet. Please check BG levels in AM and PM. May increase to 10mg if BG elevated above 200. 30 tablet 4 Active furosemide (LASIX) 20 MG tablet Take 1 tablet (20 mg total) by mouth daily. 30 tablet 4 Active Active Problems Problem Noted Date Diagnosed Date SOB (shortness of breath) 2023 Status post total right knee replacement 023 Gout of left foot 05/05/2022 Other tear of medial meniscu s of right knee as current injury, subsequent encounter 01/18/2022 Back pain 12/28/2021 Primary osteoarthritis of right knee 12/16/2021 Resolved Problems Problem Noted Date Diagnosed Date Resolved Date Hypoxemia 10/20/2021 10/21/2021 CHF (congestive heart failur e) ([facility] 10/19/2021 10/21/2021 Assessment & Plan (10/19/2021 8:50 PM CDT): Acute on Chronic Respiratory distress 10/19/2021 022 Abnormal chest x-ray 10/19/2021 022 Encounters Date Type Department Care Team Description 05/15/2024 2:35 PM CDT - 05/15/2024 11:59 PM CDT Hospital Encounter [facility] [address] [place] [address] Andriy Simpson PA Discharge Disposition: Home or Self Care (Routine Discharge) 05/15/2024 2:34 PM CDT Hospital Encounter [facility] [address] [place] [address] Andriy Simpson PA Discharge Disposition: Home or Self Care (Routine Discharge) 05/15/2024 Orders Only [facility] [address] [place] [address] Andriy Simpson PA 05/15/2024 Travel from Last 3 Months Family History Medical History Relation Comments Cancer Father No Known Problems Mother Relation Status Comments Father Alive Mother Social History Tobacco Use Types Packs/Day Years Used Date Smoking Tobacco: Never Smokeless Tobacco: Never Tobacco Cessation:Counseling Given: Not Answered Alcohol Use Standard Drinks/Week Comments Yes 0 (1 standard drink = 0.6 oz pur e alcohol) occassional [facility] Utilities Answer Date Recorded In the past 12 months has [facility] [place], gas, oil, or water coJuvo threatened to shut off services in your home? No 2023 Humiliation, Afraid, Rape, and Kick questionnair e Answer Date Recorded Within the last year, have y ou been afraid of your partner or ex-partner? No 2023 Within the last year, have y ou been humiliated or emotionally abused in other ways by your partner or ex-partner? No Within the last year, have y ou been kicked, hit, slapped, or otherwise physically hurt by your partner or ex-partner? No 2023 Within the last year, have y ou been raped or forced to have any kind of sexual activity by your partner or ex-partner? No 2023 Overall Financial Resource Strain (CARDIA) Answe r Date Recorded How hard is it for you to pa y for the very basics like food, housing, medical care, and heating? Not hard at all 2023 Hunger Vital Sign Answer Date Recorded Within the past 12 months, y ou worried that your food would run out before you got the money to buy more. Never true 04/21/19 24 Within the past 12 months, t he food you bought just didn't last and you didn't have money to get more. Never true 2023 PRAPARE - Transportation Answer Date Re corded In the past 12 months, has l ack of transportation kept you from medical appointments or from getting medications? No 08/2023 In the past 12 months, has l ack of transportation kept you from meetings, work, or from getting things needed for daily living? No 2023 Housing Stability Vital Sign Answer Yoel e Recorded In the last 12 months, was t here a time when you were not able to pay the mortgage or rent on time? No 2023 In the last 12 months, how many places have you lived? 1 2023 In the last 12 months, was t here a time when you did not have a steady place to sleep or slept in a skilled nursing (including now)? No 2023 Comments No Sex and Gender Information Value Date Recorded Sex Assigned at Not on file Legal Sex Female 9:07 PM PUBLIC WELFARE WORKER Gender Identity Female 10/19/2021 6:38 PM CDT Sexual Orientation Not on file Last Filed Vital Signs Vital Sign Reading Time Taken Comments Blood Pressure 145/72 04/23/2023 8:26 AM PUBLIC WELFARE WORKER Pulse 70 04/23/2023 8:26 AM PUBLIC WELFARE WORKER Temperature 35.5 C (95.9 F) 04/23/2023 8:26 AM PUBLIC WELFARE WORKER Respiratory Rate 18 04/23/2023 8:26 AM PUBLIC WELFARE WORKER Oxygen Saturation 98% 04/23/2023 8:26 AM PUBLIC WELFARE WORKER Inhaled Oxygen Concentration - - Weight 74.1 kg (163 lb 5 oz) 04/23/2023 4:08 AM PUBLIC WELFARE WORKER Height 152.4 cm (5') 2023 2:46 PM PUBLIC WELFARE WORKER Body Mass Index 31.89 2023 2:46 PM PUBLIC WELFARE WORKER Plan of Treatment Health Maintenance Due Date Last Done Comments Cervical Cancer Screening Pap Smear (Age 30 to 64) Every 3 Years 1962 Colorectal Cancer Screening Colonoscopy (10 Years) 1962 Annual Physical 1965 Hepatitis C 1980 DTaP, Tdap and Td Vaccines (1 - Tdap) 1981 Cervical Cancer Screening Pap with HPV Testing (Age 30 to 64) Every 5 Years 1992 Cervical Cancer Screening with HPV 1992 Zoster Vaccines (2 of 2) 04/30/2019 03/05/2019 Pneumococcal Vaccine: 50+ Years (2 of 2 - PCV) 10/21/2021 10/21/2020 COVID-19 Vaccine (4 - season) 2023 05/26/2021, 06/06/2020, 05/02/2020 Mammogram Screening 11/01/2025 11/02/2023, 05/03/2022, 11/29/2016, Additional history exists RSV Immunization or 60+ Years (1 - 1-dose 75+ series) 2037 Meningococcal B Vaccine Aged Out No l onger eligible based on patient's age to complete this topic Meningococcal Vaccine Aged Out No ebnny dayo eligible based on patient's age to complete this topic RSV Immunizations Under 20 Months Aged Out No longer eligible based on patient's age to complete this topic Goals Goal Patient Goal Type Associated Problems Recent Progress Patient-Stated? Author Safety Patient/family will have appropriate support at home upon discharge Lifestyle No Irma Rahman, DUMPSTER DRIVER Patient will return to prior living situation and remain independent in ADLs upon discharge from hospital Lifestyle No Joyce Blackburn, RN Medical Devices Implanted Type Area Cupola Mechanic Device Identifier Shelf Expiration Date Model / Serial / Lot Cement Simplex Hv W/Gentamicin - [id number] Implanted:Qty : 1 on 05/17/2022 by Hernando Vyas MD at [facility] Cement Implant Right: Knee [employer] [id number] 05/15/2023 6195-1-010 / / [id number] Cement Simplex Hv W/Gentamicin - [id number] Implanted:Qty : 1 on 05/17/2022 by Hernando Vyas MD at [facility] Cement Implant Right: Knee [employer] [id number] 05/15/2023 6195-1-010 / / [id number] Component Ptlr 32mm Medialize Dome Attune - [id number] Implanted:Qty : 1 on 05/17/2022 by Hernando Vyas MD at [facility] Patella Right: Knee [employer] - A [employer]ENN[employer]ER [employer] JENN[employer]ER [id number] / / [id number] Attune Femoral Cruciate Retaining Size 4 Right Cemented Implanted:Qty : 1 on 05/17/2022 by Hernando Vyas MD at [facility] Right: Knee [id number] 09/14/2031 [id number] / / [id number] Attune Knee System Revision Tibial Base Fixed Bearing Implanted:Qty : 1 on 05/17/2022 by Hernando Vyas MD at [facility] Right: Knee [id number] 07/15/2031 [id number] / / [id number] Attune Knee System Tibial Insert Fixed Bearing Medial Stabilized Implanted:Qty : 1 on 05/17/2022 by Hernando Vyas MD at [facility] Right: Knee 06/13/2029 [id number] / / [id number] Procedures Procedure Name Priority Date/Time Associated Diagnosis Comments USV SUN DUPLEX LOW EXT JODY STAT 05/15/2024 4:38 PM CDT Leg swelling COMPREHENSIVE METABOLIC PANEL Routine 05/15/2024 2:50 PM CDT Persistent proteinuria, unspecified CBC W/DIFF AUTOMATED Routine 05/15/2024 2:50 PM CDT Persistent proteinuria, unspecified URINE BACTERIA CULTURE Routine 2:48 PM CDT Persistent proteinuria, unspecified HC URINALYSIS AUTO W/MICRO Routine 05/15/2024 2:48 PM CDT Persistent proteinuria, unspecified ALBUMIN URINE RANDOM W/CREATININE Routine 05/15/2024 2:48 PM CDT Persistent proteinuria, unspecified MG SCREENING W JUANA JODY DIGI Routine 05/03/2022 3:39 PM CDT Breast cancer screening by mammogram from Last 3 Months or Most Recently Relevant to Health Maintenance Results * USV SUN DUPLEX LOW EXT JODY (05/15/2024 4:38 PM CDT) Anatomical Region Laterality Modality Extremity Ultrasound 05/15/2024 3:56 PM CDT Impressions 05/15/2024 3:57 PM CDT IMPRESSION: No evidence of deep venous thrombosis. Ordered By: ANDRIY SIMPSON Interpreted By: Sander Keith MD, 05/15/2024 3:56 PM Narrative 05/15/2024 3:57 PM CDT [address] [place] [address] Examination: Bilateral lower extremity venous color Doppler ultrasound. Exam time: 1518 hours. Clinical history: Leg swelling. Comparison: Left lower extremity venous Doppler, 12/20/2022. Technique: Grayscale and color Doppler images including spectral analysis. Findings: Color Doppler evaluation of the deep veins of the bilateral lower extremities demonstrates normal appearing color flow, spectra and compressibility throughout. No intraluminal filling defects are identified. Procedure Note Sander Keith MD - 05/15/[address] [place] [address] Examination: Bilateral lower extremity venous color Doppler ultrasound. Exam time: 1518 hours. Clinical history: Leg swelling. Comparison: Left lower extremity venous Doppler, 12/20/2022. Technique: Grayscale and color Doppler images including spectralanalysis. Findings: Color Doppler evaluation of the deep veins of the bilaterallower extremities demonstrates normal appearing color flow, spectra andcompressibility throughout. No intraluminal filling defects areidentified. IMPRESSION: No evidence of deep venous thrombosis. Ordered By: ANDRIY SIMPSON Interpreted By: Sander Keith MD, 05/15/2024 3:56 PM us Andriy [facility] Final Result * (ABNORMAL) COMPREHENSIVE METABOLIC PANEL (05/15/2024 2:50 PM CDT) SODIUM S/P/B 147(H) 136 - 145 MMOL/L 05/15/2024 3:21 PM CDT [facility] POTASSIUM S/P/B 3.8 3.5 - 5.1 MMOL/L 05/15/2024 3:21 PM CDT [facility] CHLORIDE S/P/B 108(H) 98 - 107 MMOL/L 05/15/2024 3:21 PM CDT [facility] CO2 32.7(H) 21.0 - 32.0 MMOL/L 05/15/2024 3:21 PM CDT [facility] GLUCOSE 91 70 - 99 MG/DL 05/15/2024 3:21 PM CDT [facility] Comment: FASTING GLUCOSE 100 TO 125 MG/DL IS CONSISTENT WITH IMPAIRED FASTING GLUCOSE. FASTING GLUCOSE >125 MG/DL IS CONSISTENT WITH DIABETES. RANDOM GLUCOSE >200 MG/DL WITH HYPERGLYCEMIC SYMPTOMS IS CONSISTENT WITH DIABETES. PER ADA GUIDELINES BUN 12 6 - 24 MG/DL 05/15/2024 3:21 PM CDT [facility] CREATININE S/P/B 0.85 0.55 - 1.02 MG/DL 05/15/2024 3:21 PM CDT [facility] CALCIUM S/P/B 9.2 8.4 - 10.5 MG/DL 05/15/2024 3:21 PM CDT [facility] BILIRUBIN TOTAL S/P/B 0.9 0.2 - 1.0 MG/DL 05/15/2024 3:21 PM CDT [facility] Comment: THIS ASSAY IS NOT RECOMMENDED FOR PATIENTS UNDERGOING TREATMENT WITH ELTROMBOPAG DUE TO THE POTENTIAL FOR FALSELY ELEVATED RESULTS. ALKALINE PHOSPHATASE S/P/B 109 50 - 130 U/L 05/15/2024 3:21 PM CDT [facility] AST 28 15 - 37 U/L 05/15/2024 3:21 PM CDT [facility] ALT 34 14 - 59 U/L 05/15/2024 3:21 PM CDT [facility] TOTAL PROTEIN S/P/B 6.9 6.4 - 8.2 G/DL 05/15/2024 3:21 PM CDT [facility] ALBUMIN S/P/B 4.1 3.4 - 5.0 G/DL 05/15/2024 3:21 PM CDT [facility] ANION GAP 6.3 5.0 - 15.0 MMOL/L 05/15/2024 3:21 PM CDT [facility] OSMOLALITY (CALC) 303 MOSM/KG 025 3:21 PM CDT [facility] Comment:REFERENCE RANGE NOT ESTABLISHED GFR ESTIMATE 77(L) >89 ML/MIN/1. 73 M2 05/15/2024 3:21 PM CDT [facility] GFR NOTES GFR REFERENCE S: 05/15/2024 3:21 PM CDT [facility] Comment: THE ESTIMATED GFR IS CALCULATED USING THE 2020 CKD-EPI EQUATION. THE FOLLOWING CATEGORIES FOR GRADING RENAL FUNCTION ARE RECOMMENDED BY THE INTERNATIONAL SOCIETY OF NEPHROLOGY (KDIGO 2012 CLINICAL PRACTICE GUIDELINE). G1,NORMAL OR HIGH: >89 ml/min/1.73 m2 G2,MILDLY DECREASED: 60-89 ml/min/1.73 m2 G3A,MILDLY TO MODERATELY DECREASED: 45-59 ml/min/1.73 m2 G3B,MODERATELY TO SEVERELY DECREASED: 30-44 ml/min/1.73 m2 G4,SEVERELY DECREASED: 15-29 ml/min/1.73 m2 G5,KIDNEY FAILURE: <15 ml/min/1.73 m2 05/15/2024 2:50 PM CDT [facility] Final Result [facility] [address] [place] [address], * (ABNORMAL) CBC W/DIFF AUTOMATED (05/15/2024 2:50 PM CDT) [facility] WBC 9.18 4.00 - 10.80 x10'3/uL 05/15/2024 2:59 PM CDT [facility] RBC 5.33 4.10 - 5.40 x10'6/uL 05/15/2024 2:59 PM CDT [facility] HGB 14.8 12.0 - 16.0 G/DL 05/15/2024 2:59 PM CDT [facility] HCT 46.3 36.0 - 47.0 % 05/15/2024 2:59 PM CDT [facility] MCV 86.9 78.0 - 100.0 FL 05/15/2024 2:59 PM CDT [facility] MCH 27.8 27.0 - 31.0 PG 05/15/2024 2:59 PM CDT [facility] MCHC 32.0(L) 33.0 - 36.0 G/DL 05/15/2024 2:59 PM CDT [facility] RDW 15.8(H) 11.5 - 14.5 % 05/15/2024 2:59 PM CDT [facility] PLT 653(H) 150 - 350 x10'3/uL 05/15/2024 2:59 PM CDT [facility] MPV 8.4 7.4 - 10.4 FL 05/15/2024 2:59 PM CDT [facility] CBC COMMENT NORMAL REFERENCE RANGE NOT ESTABLISHED FOR THE PROPORTIONAL LEUKOCYTE DIFFERENTIAL. 05/15/2024 2:59 PM CDT [facility] NEUTROPHILS % 77.9 % 05/15/2024 2:59 PM CDT [facility] LYMPHOCYTES % 12.4 % 05/15/2024 2:59 PM CDT [facility] MONOCYTES % 7.2 % 05/15/2024 2:59 PM CDT [facility] EOSINOPHILS % 1.3 % 05/15/2024 2:59 PM CDT [facility] BASOPHILS % 0.7 % 05/15/2024 2:59 PM CDT [facility] IMMATURE GRANS % 0.5 % 05/16/19 2:59 PM CDT [facility] NRBC % 0.0 % 05/15/2024 2:59 PM CDT [facility] ABS. NEUTROPHILS 7.15 1.60 - 8.30 x10'3/uL 05/15/2024 2:59 PM CDT [facility] ABS. LYMPHOCYTES 1.14 0.80 - 4.70 x10'3/uL 05/15/2024 2:59 PM CDT [facility] ABS. MONOCYTES 0.66 0.00 - 1.50 x10'3/uL 05/15/2024 2:59 PM CDT [facility] ABS. EOSINOPHILS 0.12 0.00 - 0.40 x10'3/uL 05/15/2024 2:59 PM CDT [facility] ABS. BASOPHILS 0.06 0.00 - 0.20 x10'3/uL 05/15/2024 2:59 PM CDT [facility] ABS. IMMATURE GRANULOCYTES 0.05(H) 0.00 - 0.03 x10'3/uL 05/15/2024 2:59 PM CDT [facility] ABS. NUCLEATED RBC'S 0.00 0.00 - 0.01 x10'3/uL 05/15/2024 2:59 PM CDT [facility] 05/15/2024 2:50 PM CDT us [facility] Final Result [facility] [address] [place] [address], * (ABNORMAL) URINALYSIS (05/15/2024 2:48 PM CDT) COLOR (U) YELLOW 05/15/2024 3:14 PM CDT [facility] TRANSPARENCY CLEAR 05/15/2024 3:14 PM CDT [facility] SPECIFIC GRAVITY (U) 1.030(H) 1.000 - 1.025 05/15/2024 3:14 PM CDT [facility] Comment:EQUAL TO OR GREATER THAN U PH 5.5 5.0 - 8.0 05/15/2024 3:14 PM CDT [facility] LEUKOCYTES (U) NEGATIVE NEGATIVE 05/15/2024 3:14 PM CDT [facility] NITRITES NEGATIVE NEGATIVE 05/15/2024 3:14 PM CDT [facility] PROTEIN RANDOM (U) 2+(A) NEGATIVE 05/15/2024 3:14 PM CDT [facility] GLUCOSE (U) NEGATIVE NEGATIVE 05/15/2024 3:14 PM CDT [facility] KETONES MG/DL (U) NEGATIVE NEGATIVE 05/15/2024 3:14 PM CDT [facility] UROBILINOGEN 0.2 <1.0 EU/DL 05/15/2024 3:14 PM CDT [facility] BILIRUBIN (U) NEGATIVE NEGATIVE 05/15/2024 3:14 PM CDT [facility] BLOOD (U) NEGATIVE NEGATIVE 05/15/2024 3:14 PM CDT [facility] WBC/HPF 0-5 0 - 5 /HPF 05/15/2024 3:14 PM CDT [facility] EPI/LPF 5-10 /LPF 05/15/2024 3:14 PM CDT [facility] BACTERIA (U) 1+ /HPF 05/15/2024 3:14 PM CDT [facility] URINE SPECIMEN OBTAINED BY CLEAN CATCH PROCEDURE / Unknown 05/15/2024 2:48 PM CDT Andriy [facility] URINE ORDERABLES Final Result [facility] [address] [place] [address], * URINE BACTERIA CULTURE (05/15/2024 2:48 PM CDT) SPEC DESCRIPTION URINE CLEAN CATCH 05/16/2024 8:33 AM CDT [facility] SPECIAL REQUESTS NO SPECIAL REQUEST 05/16/2024 8:33 AM CDT [facility] CULTURE RESULT NO GROWTH (< OR = 1,000 CFU/ML) 05/17/2024 10:24 AM CDT [facility] URINE SPECIMEN OBTAINED BY CLEAN CATCH PROCEDURE / Unknown 05/15/2024 2:48 PM CDT 05/16/2024 8:35 AM CDT Andriy [facility] MICROBIOLOGY - GENERAL ORDERA BLES Final Result Performing Organization Address [facility]/ZIP Co de Phone Number [facility] [address] [place] [address], [place] [phone] [facility] [address] [place] [id number], * (ABNORMAL) ALBUMIN CREATININE URINE RANDOM (05/15/2024 2:48 PM CDT) ALBUMIN (U) 41.9 MG/DL 05/15/2024 3:28 PM CDT [facility] Comment:REFERENCE RANGE NOT ESTABLISHED CREATININE RANDOM (U) 152.5 MG/DL 05/15/2024 3:28 PM CDT [facility] Comment:REFERENCE RANGE NOT ESTABLISHED ALBUMIN/CREAT RATIO 274.8(H) <30 MG/G 05/15/2024 3:28 PM CDT [facility] Comment: NORMAL TO MILDLY INCREASED ALBUMINURIA: <30 MG/G MODERATELY INCREASED ALBUMINURIA: 30 TO 300 MG/G SEVERELY INCREASED ALBUMINURIA: >300 MG/G PER KDIGO URINE SPECIMEN / Unknown 05/15/2024 2:48 PM CDT Andriy [facility] URINE ORDERABLES Final Result Performing Organization Address City/[facility]/ZIP Co de Phone Number [facility] [address] [place] [id number], * MG SCREENING W JUANA JODY DIGI (05/03/2022 3:39 PM CDT) Anatomical Region Laterality Modality Breast Bilateral Mammography 05/17/2022 4:51 PM CDT Narrative 05/17/2022 4:52 PM CDT Examination: Digital screening mammogram with CAD. Clinical history: Asymptomatic patient presents for routine screening. Prior right lumpectomy and radiation therapy for cancer. Comparison: 04/30/2021, 04/14/2020, 04/13/2019. Technique: Bilateral digital mammograms. The exam was interpreted with the use of a computer-aided detection (CAD) system. Additional 3-D tomosynthesis images were acquired. Tissue density: The breast tissue contains scattered fibroglandular densities. Findings: The breast tissue contains scattered fibroglandular densities. Benign-appearing calcification noted. Post therapeutic changes on the right appear stable. No suspicious mass, microcalcification or area of architectural distortion can be identified. From a mammographic standpoint, routine followup in one year would seem adequate. IMPRESSION: No suspicious change since the previous exams. Recommendation: 1: Routine Screening Bilateral in 1 Year Assessment: ACR BI-RADS 2 - BENIGN FINDING(S) Ordered By: JESSICA FRANCES Interpreted By: Sander Keith MD, 05/17/2022 4:51 PM Jessica Frances FILLING STATION ATTENDANT MAMMO Final Result from Last 3 Months or Most Recently Relevant to Health Maintenance Insurance MEDICAID [facility] Advance Directives * Full Code (Latest Code Status on File) Date Activated Date Inactivated Comments 2023 4:08 PM 04/23/2023 2:45 PM * Full Code Date Activated Date Inactivated Comments 2023 2:50 PM 2023 4:08 PM * Full Code Date Activated Date Inactivated Comments 05/17/2022 1:23 PM 05/18/2022 4:52 PM * Full Code Date Activated Date Inactivated Comments 10/19/2021 6:53 PM 10/21/2021 7:07 PM Care Teams Atlassian Administrator Relationship Specialty Start Date End Date Orville Sibley NP [address] [place] [address] PCP - General NURSE PRACTITIONER 04/22/23
--- OUTSIDE RECORDS SUMMARY | 2024-06-27 08:00 | XMS_ITS | Encounter Summary ---
Author Organization [facility] Address [address] [place] [address] Phone Care Team Providers Care Linoleum Layer Helper Name Role Phone Josiane Roque MD Primary Care Provider [phone] Provider, None Primary Care Provider Dilcia Carmen [facility] Primary Care Provider [phone] Reason for Visit * Reason Onset Date Comments Medication Refill 06/11/2021 Encounter Details Date Type Department Care Team (Late st Contact Info) Description 06/11/2021 Refill [facility] - [facility] [address] [place] [address] Josiane Roque MD [address] [place] [address] Medication Refill Social History Tobacco Use Types Packs/Day Years [...] file Not on file Not on file COVID-19 Exposure Response Date Recorded In the last 10 days, have kevan deleon been in contact with someone who was confirmed or suspected to have Coronavirus/COVID-19? No / Unsure 06/08/2021 1:11 PM CDT documented as of this encounter Miscellaneous Notes * Telephone Encounter - Kate Galvez RN - 06/11/2021 2:54 PM CDT Dispensed Days Supply Quantity Provider Pharmacy lisinopril 5 mg tablet 06/08/2021 90 90 Tablet JOSIANE ROQUE [facility]/pharmacy #[id number] - A... lisinopril 10 mg tablet 05/12/2021 90 45 [facility]t [facility] lisinopril 10 mg tablet 03/02/2021 90 45 Tablet [facility] * Telephone Encounter - Bronwyn Alexander - 06/11/2021 11:19 AM CDT Received a faxed Rx request from pharmacy. Reordered refill medication(s) requested and pended for nurse and physician/ALLISON review. Refill encounter routed to nurse Mellissarinicole's pool for processing. 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
--- OUTSIDE RECORDS SUMMARY | 2024-06-27 08:00 | XMS_ITS | Encounter Summary ---
Author Organization [facility] Address [address] [place] [address] Phone Care Team Providers Care Groundwater Consultant Name Role Phone Josiane Suarez MD Primary Care Provider [phone] Provider, None Primary Care Provider Dilcia Carmen [facility] Primary Care Provider [phone] Reason for Visit * Reason Onset Date Comments Medication Refill 03/05/2021 Encounter Details Date Type Department Care Team (Late st Contact Info) Description 03/05/2021 Refill [facility] - Family Medicine [facility] [address] [place] [address] Josiane Suarez MD [address] [place] [address] Medication Refill Social History Tobacco Use Types Packs/Day Years Used Date Smoking Tobacco: Never Smokeless Tobacco: Never Alcohol Use Standard Drinks/Week Comments Yes 0 (1 standard drink = 0.6 oz pur e alcohol) Socially PHQ-2 Answer Date Recorded Total Score - Questions 1-9 0 10/16 Comments No Sex and Gender Information Value Date Recorded Sex Assigned at Not on file Legal Sex Female 9:51 AM CDT Gender Identity Not on file Sexual Orientation Not on file 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 No / Unsure 03/05/2021 9:14 AM SCRAP KETTLE TENDER documented as of this encounter Miscellaneous Notes * Telephone Encounter - Kate Galvez RN - 03/09/2021 11:22 AM CST Patient notified P KETTLE TENDER * Telephone Encounter - Kate Galvez RN - 03/09/2021 11:17 AM CST Pharmacy notified to dispense the omperazole per MD P KETTLE TENDER * Telephone Encounter - Josiane Suarez MD - 03/05/2021 12:36 PM SCRAP KETTLE TENDER Per my last note she was on prilosec (omeprazole) ok to continue that P KETTLE TENDER * Telephone Encounter - Kate Galvez RN - 03/05/2021 11:19 AM CST Per MEDD - pharmacy mailed out a 90 day supply of the pantoprazole 40 mg tab. * Please review note below for clarification. P KETTLE TENDER P KETTLE TENDER * Telephone Encounter - Benjamin Bronwyn - 03/05/2021 8:15 AM CST Received a faxed Rx request from pharmacy. Reordered refill medication(s) requested and pended for nurse and physician/ALLISON review. Refill encounter routed to nurse Lynn's pool for processing. RX for omeprazole dr 40 mg cap and pantoprazole dr 40 mg, both dated 03/02/21. Please clarify if amor should dispense meprazole dr 40 mg cap and pantoprazole dr 40 mg. P KETTLE TENDER documented in this encounter Plan of Treatment Not on file documented as of this encounter Visit Diagnoses Not on filedocumented in this encounter Additional Health Concerns Infection Onset Date Last Indicated Resolved Time COVID - 19 10/01/2021 10/01/2021 10/11/2021 12:1 9 AM CDT Assessment Noted Time PHQ-9 Depression Total Score: 0 11/13/19 9:08 AM CDT documented as of this encounter Care Teams Groundwater Consultant Relationship Specialty Start Date End Date Josiane Suarez MD [address] [place] [address] PCP - General Family Medicine 11/12/20 05/15/23 Provider, None [place] PCP - General 05/16/23 08/02/23 Dilcia Sumner Consuelo, PAC [address] [place] [address] PCP - General Physician General Office Associate 08/03/23 documented as of this encounter
--- OUTSIDE RECORDS SUMMARY | 2024-06-27 08:01 | XMS_ITS | Continuity of Care Document ---
Author Organization [facility] Address [address] [place] [address] Phone Care Team Providers Care Production Planning Supervisor Name Role Phone Romain Blancas MD Unavailable Unavailable Allergies, Adverse Reactions, Alerts Substance Reaction Status Criticality No Known Allergies Active No Inform ation Medications Medication Instructions Dosage Effective Dates (start - stop) Status Comments RANITIDINE HCL (unknown strength) Not Available - Active LEVOTHYROXINE SODIUM (unknown strength) Not Available - Active LISINOPRIL (unknown strength) Not Available - Active CARVEDILOL (unknown strength) Not Available - Active TRAZODONE HCL (unknown strength) Not Available - Active ASPIRIN (unknown strength) Not Available - Active FISH OIL (unknown strength) Not Available - Active Procedures Procedure Date OFFICE CONSULTATION Advance Directives Directive Yes / No Effective Date File Name No Information Encounters Encounter Description Practice Location Reason(s) For Visit Diagnoses Date Provider Providers Copied on Encounter OFFICE CONSULTATION [facility], [address], [place], [address], tel:[phone] [facility]ca Acute pain of right knee 6 [address]. [address], [place], [place], [id number] . tel: [phone] Referring Provider: Angelito Elizabeth, [address], [place], [address]. tel:[phone] Family History Family Member Type Diagnosis Age At Onset Brother Problem (finding) Alive and well Father Problem (finding) Alive and well Mother Problem (finding) Alive and well Payers Payer name Insurance type Covered green party ID Authorsaimaa micahgavin(s) [facility] Choice/Choice Plus E2 [id number] Social History Type Description Quantity Date Captured Comments Alcohol Use Details Unknown Caffeine Use Details Unknown Tobacco Use Status Never smoked tobacco 2015 Smoking Status Never smoker Non-Smoking Tobacco Use Details : No Details Available : No Details Available Sex Female Vital Signs Date / Time: Height Weight BMI Pulse Rate Blood Pressure Temperature Respiratory Rate Body Surface Area Head Circumference Head Circ. Percentile Wt./[place]. Percentile BMI percentile Pulse Ox Inhaled Ox 1:53 PM 60.00 in 73.482 kg (162.00 lbs) 31.6 4 kg/m eter (2) 141/67 mm[Hg] Chief Complaint And Reason For Visit No Information Reason For Referral Reason For Referral No Information History Of Present Illness Encounter Date Complaint History Of Prese nt Illness No Information Functional Status Date Functional Assessmen t No Information Instructions Date Instruction Additional Infor mation No Information Assessments Type Assessment Date assessment Acute pain of right knee 2015 Patient Care Teams Name Effective Dates (start - stop) Status Members No Information
--- OUTSIDE RECORDS SUMMARY | 2024-06-27 08:01 | XMS_ITS | Patient Health Record ---
Author Organization [facility] Address [address] [place], [place] [address] Care Team Providers Care Tunnel Inspector Name Role Phone Ever Strong Primary Care Provider Olinda sEpinal Unavailable [phone] Allergies Allergen (clinical drug ingredient) Drug/Non Drug Allergy documented on EMR Reaction Allergy Type Onset Date Status ciprofloxacin Ciprofloxacin Unknown Drug Allergy Active hydrocodone Hydrocodone Unknown Drug Allergy Act tank metronidazole Metronidazole Unknown Drug Allergy Active Medicinal quinolone and acting as antibacterial agent (FN) Quinolones Unknown Drug Allergy Active Reason For Referral No Information Medications Medication SIG (Take, Route, Frequency, Duration) Notes Start Date End Date Status Levothyroxine Sodium 88 MCG 1 tablet in the morning on an empty stomach Orally Once a day Active Carvedilol 6.25 MG 1 tablet with food O rally Twice a day Active Furosemide 40 MG 1 tablet Orally Once every other day Active Albuterol Sulfate HFA 108 (90 Base) MCG/ACT 1 puff as needed Inhalation every 6 hrs for 90 days 12/14/2022 Active Omeprazole 40 MG 1 capsule 30 minutes before morning meal Orally Once a day Active Lisinopril 20 MG 1 tablet Orally twic e daily Active traZODone HCl 50 MG 3 tablet at bedtime as needed Orally Once a day Active Nystatin 125995 UNIT/GM 1 application Ex ternally Twice a day prn Active Immunizations Vaccine Route Administration Date Status Comme nts Fluarix Quadrivalent IM Intramuscular 12/02/2022 Administered TerNereyda tamayo 12/02/2022 09:54:20 AM >administered to right deltoid IM after alcohol prep, pt tolerated well, instructed to wait 20 minutes prior to leaving to observe for reaction, no adverse reaction noted Social History Tobacco Use: Social History Observation Description Date Details (start date - stop date) Former Smoker NA - 08/13/1969 Fall Risk Question Answer Notes Fall Screening/Assessment: Fall risk assessment Tobacco Screening Question Answer Notes Are you a: Former Smoker Pt entered data When did you stop smoking? 08/13/1969 Pt en tered data How long ago did you quit smoking? 53 Pt entered data Are you an other tobacco user? No P t entered data Alcohol Screening Question Answer Notes How often did you have 6 or more drinks on 1 occasion in the past year? Never (0 pts) Pt entered data How often did you have a dri nk containing alcohol in the past year? Monthly or less (1 pt) Pt entered data How many drinks did you have on a typical day when you were drinking in the past year? 1-2 (0 pt) Pt entered da ta Score / Interpretation Negative Pt entere d data Drug Screening Question Answer Notes Have you used drugs other th an those for medical reasons in the past 12 months? No Pt entered data Depression Question Answer Notes Little interest or pleasure in doing things? Pt entered data Feeling down, depressed, or hopeless? 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 Problem Body mass index 30+ - obesity (513835768) BMI 30.0-30.9,adult (Z68.30) Active confirmed Problem 60350413 Congestive heart failure, unspecified HF chronicity, unspecified heart failure type (I50.9) Active confirmed Plan Of Treatment No Information Insurance Providers Payer Name Payer Address Payer Phone Subscriber Number Group Number Insured Name Patient Relationship to Insured Coverage Start Date Coverage End Date [employer] MEDICARE [address] [place] [phone] [id number] Steph Hunt Self - patient is the insured Medications Administered Medication Instructions Date of Administration Dosage Notes cefTRIAXone Sodium 11/29/2022 500 mg Nereyda Gordon 11/29/2022 11:08:04 AM >administered to left gluteus iM after alcohol prep, pt tolerated well, instructed to wait 15 minutes prior to leaving to observe for reaction, no adverse reaction noted Medical (General) History Medical History History ICD Code breast cancer diverticulitis bulging disk to back and neck thrombocytosis macular degeneration congestive heart failure type 2 diabetes asthma Surgical History Surgery Date(Month/Year) right sided lumpectomy 2005 appendectomy 1981 gall bladder removal 1995 bowel resection 2017 left wrist repair 2003 ligament/tendon repair bilateral ankles Hospitalization History Reason Date(Month/Year) chf 10/2021 see surgical hx
[2024-07-16 17:31] VITALS: BMI 27.0
--- NOTE | 2024-07-16 17:31 | WPDHOMESLEEP ---
Sleep Study - Home Unattended Date of Study: 06/27/24 Ordering Provider: Juan Kiran APRN Interpreting Provider: Cathie Nj, DO Home Sleep Study Type: Watch PAT Height: 1.5 m Weight: 60.781 kg Body Mass Index: 27.0 Neck Circumference (inches): 14 [place]: 11 Reason for Sleep Study Daytime hypersomnia Sleep History The patient is a 64-year-old female who had a sleep study ordered by the pulmonary group for evaluation of sleep apnea. The patient admits to excessive daytime sleepiness. She denies snoring loudly. She denies interruptions in breathing while asleep. She denies choking or gasping at night. She denies having trouble breathing on her back. She denies morning headaches. She does have a dry or sore mouth/throat in the morning. She does have nocturnal heartburn. She does urinate twice throughout the night. She does have difficulty falling and staying asleep. She does have difficulty returning to sleep if she wakes up throughout the night. She does use hypnotics or sedatives. She does feel anxious about sleep. She does feel tired and sleepy during the day. She does feel tired in the morning. She does have the urge to fall asleep during the day. She does feel drowsy while driving. She denies sleep paralysis, cataplexy, and hypnagogic/hypnopompic hallucinations. She does clench or grind her teeth. She denies kicking or jerking her legs excessively. She denies having a restless feeling in her legs. She goes to bed at 8:30 p.m. on workdays and at 11:00 p.m. on her days off. She gets 3 hours of sleep on workdays and 1 hour on her days off. Her sleep is a little more restorative on her days off. She does take planned naps. Her naps are in the afternoon and they last less than 1 hour. She denies dream enactment behavior. She denies sleepwalking. She denies consuming any caffeinated beverages throughout the day. She denies tobacco use. She consumes 1 alcoholic beverage one to two nights per week. She exercises three to four nights per week. [facility] Past Medical History Medical History Arthritis of left hip Insomnia Hyperlipidemia Bulging discs Thrombocytosis History of MRSA infection Secondary to Port-A-Cath. Hiatal hernia with GERD Type 2 diabetes mellitus (~2016) Was 6.3 in May 2018. Hypertension (~2004) Hypothyroidism (~1994) Anxiety Breast cancer Right-sided breast cancer in 2006 status post chemotherapy and radiation. Lupus Surgical History Surgical History History of foot surgery Right foot 2nd digit surgery. History of right knee surgery Repair of meniscal tear. H/O left wrist surgery History of total abdominal hysterectomy and bilateral salpingo-oophorectomy Status post right breast lumpectomy In 2005 for breast cancer. History of appendectomy . Hx of cholecystectomy . Hx of tonsillectomy H/O laparoscopy H/O dilation and curettage Family History Family History Mother Family history of blood dyscrasia Father Family history of heart disease in male family member before age 55 Family history of elevated blood lipids Family history of coronary artery disease Carcinoma of colon Hypertension Grandparent Diabetes mellitus Sibling Acute Crohn's disease Other Family history of congenital heart disease Family history of diabetes mellitus in first degree relative Family history of malignant neoplasm Family history of malignant neoplasm of breast in first degree relative Family history of rheumatoid arthritis Social History Social History Social History: The patient lives in her own home in [place], [place]. She smoked for only a few months as a teenager. She consumes alcohol rarely and on social occasions, in moderation. No illicit drug use. 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 Faisal as her surrogate decision maker and is wishing to be a full code. Caffeine-soda occasionally Smoking status: Never smoker Tobacco type: cigarettes Second hand tobacco smoke exposure: No Additional smoking assessment comments: Smoked for two months as teenager Alcohol intake: never Drinks per week: 0 Substance use: never Substance use type: does not use Other substance usage details: former marijuana use Do You Feel Safe in your Home?: Yes Lack of Transportation: No Lack of Food: Never True Current Housing: I Have Housing Concerned About Future Housing: No Difficulty Paying Gas/Electric Bills: No Difficulty Paying for Meds: No Currently Unemployed: No Education: High School Diploma/GED Difficulty w/ Childcare or Family Care: No Living arrangements: alone Gender identity (if verbalized by the patient): Female Spiritual care concerns: No Agree to blood products: Yes Medications Home Medications ?Medication ?Instructions ?Recorded ?Confirmed ?Type atorvastatin 20 mg tablet 20 mg PO DAILY #90 tabs 06/16/20 06/08/24 Rx albuterol sulfate 90 mcg/actuation 2 puff inhalation Q4-5H PRN Dyspnea 05/21/21 06/08/24 History aerosol inhaler pantoprazole 40 mg tablet,delayed 40 mg PO QAM 05/21/21 06/08/24 History release aripiprazole 2 mg tablet 2 mg PO DAILY 07/22/23 06/08/24 History duloxetine 20 mg capsule,delayed mg PO 07/22/23 06/08/24 History release carvedilol 12.5 mg tablet 12.5 mg PO Q12H #180 tabs 09/02/23 06/08/24 Rx lisinopril 10 mg tablet 10 mg PO BID #180 tabs 09/02/23 06/08/24 Rx aspirin 81 mg chewable tablet 81 mg PO DAILY 01/18/24 06/08/24 History semaglutide 0.25 mg or 0.5 mg (2 0.5 mg subcut WEEKLY 01/18/24 06/08/24 History mg/3 mL) subcutaneous pen injector (Ozempic) trazodone 100 mg tablet 100 mg PO HS PRN 01/18/24 06/08/24 History prednisone 10 mg tablet 10 mg PO DIRECTED 06/08/24 06/08/24 History semaglutide 0.25 mg or 0.5 mg (2 0.25 mg subcut WEEKLY 06/08/24 06/08/24 History mg/3 mL) subcutaneous pen injector (Ozempic) Sleep Procedure The sleep study was completed using WatchPAT a technically adequate device with seven channels: peripheral arterial tone, actigraphy, body position, snore, respiratory movement, pulse oximetry, sleep staging, and heart rate. Prior to using the device, the patient received verbal and written instructions for its application and was provided with the [employer] phone number for additional telephonic instruction with 24-hour availability of qualified personnel to answer questions. The study was scored using CMS guidelines. Sleep Architecture The total recording time is 7 hrs, 30 min. The total sleep time is 6 hrs, 5 min. Sleep latency is 11 minutes. REM latency is 188 minutes. The patient had 7 episodes of waking. Sleep architecture shows 14.1% deep sleep, 60.9% light sleep, and (as % Total Sleep Time) showed NREM (Light 60.9%; Deep 14.1%), and a 25.0% stage REM. The patient spent 10.1% of total sleep time in the supine position. Sleep efficiency was 81.11. Respiratory Analysis The overall AHI (pAHI 4%:) is 5.2. The overall AHI (pAHI 3%:) is 11.9. The central AHI is 3.8. The AHI was 4.5 in NREM and 33.8 in REM sleep. The AHI was 9.9 in Supine and 12.1 in Non-supine sleep. Percent of Asher Sanchez respirations is 0.0. Oximetry Data The oxygen desaturation index (LANDY 4%:) is 5.4. The mean saturation is 95%, and the lowest saturation is 88%. Time spent with saturation < 88% is 0.0 minutes. Snoring Profile Snoring average intensity is 42 dB. The patient snored above 45 decibels for 44.3 minutes, 12.1% of sleep time. Cardiac Profile The average pulse rate is 77 beats per minutes. The lowest pulse rate is 65 bpm. The highest pulse rate reported is 97 bpm. Atrial fibrillation was not detected. Premature beats occur <0.1 per minute. Assessment and Plan Assessment and Plan (1) GABRIEL (obstructive sleep apnea): Code(s): G47.33 - Obstructive sleep apnea (adult) (pediatric) Status: Acute Assessment and Plan: The patient had an overall AHI of 5.2 with desaturation down to 88%. This is consistent with mild sleep apnea. Due to the patient's diabetes, she qualifies for treatment. Over half of the patient's respiratory events, were central in nature. The patient is not an ideal candidate for AutoPAP because AutoPAP can increase the frequency and severity of central apneas. I recommend that the patient have a CPAP Titration with the use of a hypnotic to ensure we obtain enough sleep data and find an optimal pressure setting. If the patient's insurance will not approve the CPAP Titration, you could do a trial of an AutoPAP and determine next steps based on compliance data. Data The data obtained during this sleep study is adequate for interpretation. Certification This sleep study has been reviewed by a board certified sleep medicine physician.
== END 2024-06-29 10:09 | disposition home or self-care (01) ==
LOC: ANHCSM 07:57
PROVIDERS: Visit Provider Nurse Practitioner Family
DX: G47.33 Obstructive sleep apnea (adult) (pediatric) (principal)
CPT/HCPCS: 95800

== ENCOUNTER 2024-07-04 09:06 | Outpatient (CLI) | payer MEDICARE, MEDICAID, SELFPAY ==
--- NOTE | 2024-07-04 | EST_ITS ---
Patient Info Name: Steph Hunt Age: 64 years : 1960 Gender: Female Ht: 59 in Wt: 134 lbs BSA: 1.61 m2 HR: 71 bpm BP: 178 / 81 mmHg Exam Date: 07/04/2024 11:38 AM Patient Status: O Admit Date: 07/04/2024 Exam Type: CA stress glenda w NM A regadenoson stress test was performed. Staff Referring Physician: Ubaldo Ya DO Attending Provider: Ubaldo Ya DO Exercise Technologist: Anna Winchester Exercise Physician: Ubaldo Ya DO Summary 1. 1. Negative lexiscan stress test for ischemic ST changes by ECG criteria. 2. 2. Baseline hypertension. 3. 3. Nuclear scan to follow and will be reported separately. Please correlate with it. 4. 4. Patient informed of the above results. Protocol: Lexiscan Stress ECG Details Stage: REST Duration (min): 1 min : 53 sec HR (bpm): 69 SBP (mmHg): 178 DBP (mmHg): 81 Stage: REST Duration (min): 2 min : 13 sec HR (bpm): 70 SBP (mmHg): 178 DBP (mmHg): 81 Stage: STAGE 1 Duration (min): 0 min : 59 sec HR (bpm): 80 SBP (mmHg): 178 DBP (mmHg): 81 Stage: RECOVERY Duration (min): 1 min : 0 sec HR (bpm): 84 SBP (mmHg): 178 DBP (mmHg): 81 Stage: RECOVERY Duration (min): 2 min : 0 sec HR (bpm): 86 SBP (mmHg): 178 DBP (mmHg): 81 Stage: RECOVERY Duration (min): 3 min : 0 sec HR (bpm): 85 SBP (mmHg): 178 DBP (mmHg): 81 Stage: RECOVERY Duration (min): 3 min : 52 sec HR (bpm): 82 SBP (mmHg): 170 DBP (mmHg): 62 Rest HR: 70 bpm Peak HR: 91 bpm Rest Sys BP: 178 mmHg Peak Sys BP: 170 mmHg Max Pred HR: 158 bpm % Max Pred HR: 58 % Target HR: 134 bpm Max RPP: 15,470 bpm*mmHg Termination Reason: Completed protocol Cardiac Symptoms: Shortness of breath Total Time: 1 min : 0 sec Rest Alaniz BP: 81 mmHg Peak Alaniz BP: 62 mmHg Total Dose: 0.4 mg Resting ECG Sinus rhythm. Stress ECG No ST changes. Arrhythmias None. Report Signatures
--- NOTE | ~2024-07-04 | NM_ITS ---
EXAMINATION: NM glenda stress w perfusion DATE: 07/04/2024 12:59 CDT INDICATION: Dyspnea TECHNIQUE: Rest images were obtained following intravenous administration of 8.4 mCi Tc99m tetrofosmi n (Myoview). The patient was infused intravenously with Lexiscan (regadenoson). Then, 26.7 mCi Tc99m tetrofosmin (Myoview) was administered intravenously, and stress images were obtained. Data was recon structed into short axis and horizontal and vertical long axis SPECT images. Gated SPECT images were also obtained. COMPARISON: None. FINDINGS: There is no definite reversible or fixed perfusion abnormality to suggest ischemia or infar ction. There is global hypokinesis.. Left ventricular ejection fraction measures 53%. IMPRESSION: 1. No definite ischemia or infarct. 2. Global hypokinesis with decreased left ventricular ejection fraction measuring 53%. Reviewed, dictated and finalized at location B. IMPRESSION: 1. No definite ischemia or infarct. 2. Global hypokinesis with decreased left ventricular ejection fraction measuri ng 53%.
--- OUTSIDE RECORDS SUMMARY | 2024-07-04 09:48 | XMS_ITS | Clinical Summary ---
Author Organization [facility] Care Team Providers Care Neck Cutter Name Role Phone Dilcia Sumner Consuelo [facility] Primary Care Provider [phone] Allergies Active Allergy Reactions Criticality Noted Date [...] mouth daily. 90 Tablet 3 022 Active Blood Glucose Monitoring Suppl Device Diagnosis: [...] check blood glucose daily 100 Strip 3 Active atorvastatin (LIPITOR) 20 MG Tablet TAKE 1 TABLET EVERY DAY 90 Tablet 1 Active cetirizine (ZyrTEC) 10 MG Tablet TAKE 1 TABLET EVERY DAY 90 Tablet 1 Active carvedilol (COREG) 6.25 MG Tablet TAKE [...] MG SUBCUTANEOUSLY ONCE A WEEK 025 Active Active Problems Problem Noted Date Diagnosed [...] 05/27/2024 5:45 PM CDT [facility] [place] [address] [place] [phone] Taylor Neri APRN, MARYANNE Left wrist pain (Primary Dx) Discharge Disposition: Discharged to home or Selfcare 05/27/2024 Travel 05/22/2024 [facility]phone [facility] [address] [place] [phone] Dilcia Sumner Consuelo, PAC 05/17/2024 [facility] [address] [place] [phone] Chanel Nascimento APRN, CHEMIST WATER PURIFICATION Encounter for screening mammogram for breast cancer (Primary Dx) from Last 3 Months Immunizations Immunization Administration Dates Next Due Covid-19, Mrna, Lnp-s, Pf, 30 Mcg/0.3 Ml Dose (P jenniferzer) 06/06/2020,05/02/2020 Influenza Vaccine greater than 3 yrs 10/29/2014 Influenza Vaccine, MDCK,quadrivalent, pres free 10/21/2020 Influenza Vaccine, Quadrivalent, PF 10/17/2014 Influenza, Seasonal, Injectable, Undefined 10/29,11/18/2012 Pneumococcal Vaccine Adult - 23 Valent 1 Zoster Vaccine Recombinant 03/05/2019 Family History Medical [...] 2:50 PM CDT Height 154.9 cm (5' 1 ) 11/22/2023 2:50 PM CDT Body Mass Index [...] exists SARS-COV-2 Immunization (5 - Pfizer risk 2023- season) 2024 12/21/2023, 04/01/2022, 06/06/2020, Additional history [...] this topic Medical Devices Implanted Type Area Quahogger Device Identifier Shelf Expiration Date Model / Serial / Lot 06/15/2021 Implanted:06/16/19 22 by Rafael Mckenna MD (Quantity not on file) Description: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 Procedures Procedure Name Priority Date/Time Associated Diagnosis Comments HEATHER SCREENING BILATERAL DIGITAL W CAD W JUANA Routine 11/02/2023 1:34 PM CDT Encounter for screening mammogram for malignant neoplasm of breast CMP (COMPREHENSIVE METABOLIC PANEL) Routine 10/11/2023 3:13 PM CDT Essential thrombocytosis (HCC) Iron deficiency anemia, unspecified iron deficiency anemia type Folic acid deficiency HEMOGLOBIN, A1C 05/02/2023 12:00 AM CDT HM DILATED EYE EXAM 02/23/2021 12:00 AM INFORMATION TECHNOLOGY AUDIT MANAGER from Last 3 Months or Most Recently [...] to exams dated: 04/30/2021, 04/14/2020, and 04/13/2019 [facility]. BREAST TISSUE:There are scattered areas of fibroglandular [...] exam. Electronically signed by: Kourtney khan/dave:11/08/2023 16:32:32 Wash Oil Pump Operator Helper(s): VENKATA Osuna)(M), [facility] letter sent: Normal Exam Reading location: [facility] [...] to exams dated: 04/30/2021, 04/14/2020, and 04/13/2019 [facility]. BREAST TISSUE:There are scattered areas of fibroglandular [...] exam. Electronically signed by: Kourtney khan/dave:11/08/2023 16:32:32 Wash Oil Pump Operator Helper(s): RT Thao(R)(M), [facility] letter sent: Normal Exam Reading location: [facility] Mammogram BI-RADS: Category 2: Benign us None Provider IMG MAMMO ORDERABLES Final Resul t * (ABNORMAL) CMP (COMPREHENSIVE METABOLIC PANEL) (10/11/2023 3:13 PM CDT) SODIUM 141 136 - 145 mmol/L 10/11/2023 4:15 PM CDT [facility] POTASSIUM 2.8(L) 3.5 - 5.1 mmol/L 10/11/2023 4:15 PM CDT [facility] CHLORIDE 107 98 - 107 mmol/L 10/11/2023 4:15 PM CDT [facility] CO2, VENOUS 24 22 - 30 mmol/L 10/11/2023 4:15 PM CDT [facility] ANION GAP 12.8 <18.0 mmol/L 10/11/2023 4:15 PM CDT [facility] GLUCOSE 95 70 - 99 mg/dL 10/11/2023 4:15 PM CDT [facility] BUN 9(L) 10 - 20 mg/dL 10/11/2023 4:15 PM CDT [facility] CREATININE, BLOOD 0.75 0.60 - 1.00 mg/dL 10/11/2023 4:15 PM T [facility] BUN/CREATININE RATIO 12 12 - 20 ratio 10/11/2023 4:15 PM CDT [facility] TOTAL PROTEIN 6.6 6.3 - 8.2 g/dL 10/11/2023 4:15 PM CDT [facility] ALBUMIN 4.3 3.5 - 5.0 g/dL 10/11/2023 4:15 PM CDT [facility] A/G RATIO 1.9 1.0 - 2.2 10/11/2023 4:15 PM T [facility] CALCIUM 9.2 8.7 - 10.5 mg/dL 10/11/2023 4:15 PM T [facility] T BILI 1.2 0.2 - 1.2 mg/dL 10/11/2023 4:15 PM T [facility] SGOT (AST) 23 5 - 34 U/L 10/11/2023 4:15 PM [facility] SGPT (ALT) 23 0 - 55 U/L 10/11/2023 4:15 PM T [facility] ALKALINE PHOSPHATASE 86 40 - 150 U/L 10/11/2023 4:15 PM [facility] IS THE PATIENT REQUIRED TO BE FASTING? No 10/11/2023 4:15 PM T [facility] GFR, ESTIMATED >60 >=60 10/11/2023 4:15 PM T [facility] Comment: Creatinine Clearance is the preferred criteria for selecting drug dose adjustments in renally impaired patients. The GFR is provided as additional pertinent clinical information. GFR is reported in mL/min/1.73 sq m. Calculation based on the Chronic Kidney Disease Epidemiology Collaboration (CKD- EPI) equation refit without adjustment for race. GFR, EST. >60 >=60 024 4:15 PM T [facility] GFR, EST. NONAFRICAN >60 >=60 10/11/2023 4:15 PM CDT [facility] Blood Venipuncture / Unknown 10/11/2023 3:13 PM CDT 10/11/2023 3:13 PM CDT us Dilcia Sumner PAC CHEMISTRY ORDERABLES Carmen l Result Performing Organization Address City/[facility]/ZIP Co de Phone Number [facility] [facility] [place] [place] [address] * HEMOGLOBIN, A1C (05/02/2023 12:00 AM CDT) HGB-A1C 7.9 SCAN 05/02/2023 us Provider Scan CHEMISTRY ORDERABLES Final Resul t Performing Organization Address [facility] Co de Phone Number SCAN * DILATED EYE EXAM (02/23/2021 12:00 AM INFORMATION TECHNOLOGY AUDIT MANAGER) 02/23/2021 us Not On File Provider PROCEDURE/MINOR SURGICAL OR DERABLES Final Result SCAN from Last 3 Months or Most Recently Relevant to Health Maintenance Insurance MEDICAID [place] MEDICARE C [employer] Member Subscriber Plan / Payer (Ef fective 2024-Present) Name:Steph Hunt Relation to Subscriber:Self Name:Steph Hunt Payer ID:[id number] ([facility]) Type:Not on file Address: [place] [phone] Advance Directives * Full Code (Latest Code Status on File) Date Activated Date Inactivated Comments 07/28/2021 11:26 AM * Full Code Date Activated Date Inactivated Comments 07/10/2021 1:09 AM 07/11/2021 3:10 PM CPR-Full Jose L atment: FULL ARREST: Attempt Resuscitation/CPR wit intubation and mechanical ventilation. PRE-ARREST: Use entire range of life support measures to stabilize the patient. Care Teams Neck Cutter Relationship Specialty Start Date End Date Dilcia Sumner July, [address] [place] [address] PCP - General Physician Business Support Coordinator 08/03/23
--- OUTSIDE RECORDS SUMMARY | 2024-07-04 09:48 | XMS_ITS | Continuity of Care Document ---
Author Organization [facility] Address [address] [place] [address] Phone Care Team Providers Care Automatic Centrifugal Station Operator Name Role Phone Romain Blancas MD Unavailable [...] Provider Providers Copied on Encounter OFFICE CONSULTATION [facility], [address], [place], [address], tel:[phone] [facility] Bianca Acute pain of right knee 6 Yonny Hoyos. [address], [place], [place], [address] . tel: [phone] Referring Provider: Angelito Elizabeth, [address], [place], [address]. tel:[phone] Family History Family Member Type Diagnosis Age At Onset Brother Problem (finding) Alive and well Father Problem (finding) Alive and well Mother Problem (finding) Alive and well Payers Payer name Insurance type Covered green party ID Authorsaimaa micahgavin(s) [facility] Choice/Choice Plus E2 OT [id number] Social History Type Description Quantity Date Captured [...]
--- OUTSIDE RECORDS SUMMARY | 2024-07-04 09:48 | XMS_ITS | Patient Health Record ---
Author Organization [facility] Address [address], [place] [id number] Care Team Providers Care Spark Plug Assembler Name Role Phone Ever Strong Primary Care Provider Olinda Espinal Unavailable [phone] Allergies Allergen (clinical drug ingredient) Drug/Non Drug [...] needed Orally Once a day Active Nystatin 427189 UNIT/GM 1 application Ex ternally Twice a [...] Problem Long-term current use of drug therapy (214295263) Other long-term (current) drug therapy (Z79.899) Active confirmed Problem 719410064 Acquired hypothyroidism (E03.9) Active confirmed Problem 036239128 Diabetes 1.5, 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
--- OUTSIDE RECORDS SUMMARY | 2024-07-04 09:48 | XMS_ITS ---
Author Organization [facility] Address [address] [facility] [place] [id number] Care Team Providers Care Certified Phlebotomy Technician Name Role Phone Ever Strong Primary Care Provider Olinda Espinal Unavailable [phone] REASON FOR VISIT 4 month follow up, Medicare Wellness, Tramadol Hcl 50 Mg Tablet #15 12/03 Vital Signs Height 60 in 02/25/2023 Weight 157.4 lbs 02/25/2023 BMI 30.74 kg/m2 02/25/2023 Encounters Encounter Location Date Provider Diagnosis [facility] Internal Medicine [address] [facility] [place] [address] 02/25/2023 Ever Gloverjuan jose Acquired hypothyroid ism E03.9 ; Diabetes 1.5, managed as type 2 E13.9 ; Congestive heart failure, unspecified HF chronicity, unspecified heart failure type I50.9 ; Other longterm (current) drug therapy Z79.899 and BMI 30.0-30.9,adult Z68.30 Assessments Encounter Date Diagnosis (ICD Code) Assessment Notes Treatment Notes Treatment Clinical Notes Section Notes 02/25/2023 Acquired hypothyroidism (ICD-10 - E03.9) 02/25/2023 Diabetes 1.5, 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) 02/25/2023 Congestive heart failure, unspecified HF chronicity, unspecified heart failure type (ICD-10 - I50.9) 02/25/2023 Other longterm (current) drug therapy (ICD-10 - Z79.899) 02/25/2023 BMI 30.0-30.9,adult (ICD-10 - Z68.30) 02/25/2023 Other The DASH diet material was printed Plan Of Treatment Treatment Notes Assessment Notes Other The DASH diet materi al was printed Progress Notes * Mayco HUNTOB:1960 (64 yo F)Acc No.[id number]:02/25/2023 Patient: Steph FAY Provider: Ayala Strong MD :1960 A ge:62 Y S ex:Female Date:02/25/2023 Address:[address] [place], [place] [id number] Subjective: * Chief Complaints: * 1 . [...] type - I50.9 4 . O ther ferry terminal agent (current) drug therapy - Z79.899 5 . B [place] 30.0-30.9,adult - Z68.30 Plan: * Treatment: * Procedure Codes: G 8417 BMI >=30 CALCUATE W/FOLLOWUP * * Electronic signature of Bashir Strong MD on 07/04/2024 at 09:47 AM CDT Sign off status: Pending * Provider: Ayala Strong MD Date: 0 02/25/2023 Generated for Adonay nelson/Sue/eTransmitting on: 0 07/04/2024 09:47 AM CDT
--- OUTSIDE RECORDS SUMMARY | 2024-07-04 09:48 | XMS_ITS | Encounter Summary ---
Author Organization [facility] Address [address] [place] [address] Phone Care Team Providers Care Director Of Emergency Nursing Name Role Phone Josiane Roque MD Primary Care Provider [phone] Provider, None Primary Care Provider Dilcia Carmen [facility] Primary Care Provider [phone] Reason for Visit * Reason Onset Date Comments Medication Refill 06/11/2021 Encounter Details Date Type Department Care Team (Late st Contact Info) Description 06/11/2021 Refill [facility] - Family Medicine [facility] [address] [place] [address] Josiane Roque MD [address] [place] [address] Medication Refill Social History Tobacco Use Types [...] tablet 06/08/2021 90 90 Tablet JOSIANE ROQUE [facility]/pharmacy #[id number] - A... lisinopril 10 mg tablet 05/12/2021 90 45 Tablet [facility] lisinopril 10 mg tablet 03/02/2021 90 45 Tablet [facility] * Telephone Encounter - [...] Total Score: 0 04/09/19 22 10:12 AM EQUIPMENT APPLICATION SPECIALIST documented as of this encounter Care Teams Director Of Emergency Nursing Relationship Specialty Start Date End Date Josiane Roque MD [address] [place] [address] PCP - General Family Medicine 11/12/20 05/15/23 Provider, None [place] PCP - General 05/16/23 08/02/23 Dilcia Sumner, PAC [address] [place] [address] PCP - General Physician Farmworker [employer] 08/03/23 documented as of this encounter
--- OUTSIDE RECORDS SUMMARY | 2024-07-04 09:48 | XMS_ITS | Encounter Summary ---
Author Organization [facility] Address [address] [place] [address] Phone Care Team Providers Care Pharmacy Data Analyst Name Role Phone Josiane Suarez MD Primary Care Provider [phone] Provider, None Primary Care Provider Dilcia Carmen [facility] Primary Care Provider [phone] Reason for Visit * Reason Onset Date Comments Medication Refill 03/05/2021 Encounter Details Date Type Department Care Team (Late st Contact Info) Description 03/05/2021 Refill [facility] Medical [facility] - Family Medicine [facility] [address] [place] [address] Josiane Suarez MD [address] [place] [address] Medication Refill Social History Tobacco Use Types [...] COVID-19? No / Unsure 03/05/2021 9:14 AM RIVET STICKER documented as of this encounter Miscellaneous Notes * Telephone Encounter - Kate Galvez RN - 03/09/2021 11:22 AM CST Patient notified T STICKER * Telephone Encounter - Kate Galvez RN - 03/09/2021 11:17 AM CST Pharmacy notified to dispense the omperazole per MD T STICKER * Telephone Encounter - Josiane Suarez MD - 03/05/2021 12:36 PM RIVET STICKER Per my last note she was on prilosec (omeprazole) ok to continue that T STICKER * Telephone Encounter - Kate Galvez RN - 03/05/2021 11:19 AM CST Per MEDD - pharmacy mailed out a 90 day supply of the pantoprazole 40 mg tab. * Please review note below for clarification. T STICKER T STICKER * Telephone Encounter - Benjamin Bronwyn - [...] mg cap and pantoprazole dr 40 mg. T STICKER documented in this encounter Plan of Treatment Not on file documented as of this encounter Visit Diagnoses Not on filedocumented in this encounter Additional Health Concerns Infection Onset Date Last Indicated Resolved Time COVID - 19 10/01/2021 10/01/2021 10/11/2021 12:1 9 AM CDT Assessment Noted Time PHQ-9 Depression Total Score: 0 11/13/19 9:08 AM CDT documented as of this encounter Care Teams Pharmacy Data Analyst Relationship Specialty Start Date End Date Josiane Suarez MD [address] [place] [address] PCP - General Family Medicine 11/12/20 05/15/23 Provider, None OR PCP - General 05/16/23 08/02/23 Dilcia Sumner Consuelo, PAC [address] [place] [address] PCP - General Physician Pet Groomer 08/03/23 documented as of this encounter
--- OUTSIDE RECORDS SUMMARY | 2024-07-04 09:48 | XMS_ITS ---
Author Organization [facility] Address [address] [facility] [place] [id number] Care Team Providers Care Outreach Liaison Name Role Phone Ever Strong Primary Care Provider Olinda Espinal Unavailable [phone] REASON FOR VISIT MEDICARE WELLNESS VISIT Encounters Encounter Location Date Provider Diagnosis [facility] Internal Medicine [address] [facility] [place] [address] 10/28/2023 Ever Strong Plan Of Treatment No Information Progress Notes * Mayco HUNTOB:1960 (64 yo F)Acc No.[id number]:10/28/2023 Patient: Steph FAY Provider: Ayala Strong MD :1960 A ge:63 Y S ex:Female Date:10/28/2023 Address:[address] [place], [place] [id number] Subjective: * Chief Complaints: * 1 . MEDICARE WELLNESS VISIT . * Medical History: Objective: * Vitals: Assessment: Plan: * Treatment: * * Electronic signature of Bashir Strong MD on 07/04/2024 at 09:47 AM CDT Sign off status: Pending * Provider: Ayala Strong MD Date: 0 10/28/2023 Generated for Adonay nelson/Sue/Marc on: 0 07/04/2024 09:47 AM CDT
--- OUTSIDE RECORDS SUMMARY | 2024-07-04 09:48 | XMS_ITS | Clinical Summary ---
Author Organization [facility] Address [address] [address] Care Team Providers Care Equipment Inspector Name Role Phone Sugey Saldaña Primary Care [...] Department Care Team Description 06/20/2024 Orders Only [facility] Den[facility]. [address] [facility] [place] [address] Leticia Ly MA Stage 3b chronic kidney disease (HCC) (Primary Dx); Hypertension; Proteinuria, not otherwise specified; Type 2 diabetes mellitus with diabetic nephropathy (HCC) 04/20/2024 Orders Only [facility]. [address] [facility] [place] [address] Ele Ly MA Endometrial hyperplasia, not otherwise specified; Cyst of cervix; Stage 3b chronic kidney disease (HCC); Postmenopausal bleeding; Abdominal pain - cause unknown 04/13/2024 Documentation Only [facility]. [address] [facility] [place] [address] Shahriar Blankenship MD 04/13/2024 Documentation Only [facility]. [address] [facility] [address] Shahriar Blankenship MD 04/13/2024 Documentation Only [facility]. [address] [facility] [place] [address] Shahriar Blankenship MD from Last 3 Months [...] Description 08/20/2024 10:45 AM CDT Office Visit [facility]. [address] [facility] [address] [place] [address] Shahriar Blankenship MD [address] [facility] [address] [place] [address] Health Maintenance Due Date Last Done Comments [...] 6.0 PRINT /EXTERNAL (NON-INTERFACE D LABS) Blood specimen (specimen) Venous blood / Unknown 07/13/2023 us Shahriar Blankenship MD LAB BLOOD ORDERABLES Final Res ult PRINT/EXTERNAL (NON-INTERFACED LABS) from Last 3 Months or Most Recently Relevant to Health Maintenance Insurance [facility] Medicaid [place] Care Teams Equipment Inspector Relationship Specialty Start Date End Date Sugey Saldaña [address] [place] [address] PCP - General Nurse Practitioner 05/17/23
--- OUTSIDE RECORDS SUMMARY | 2024-07-04 09:48 | XMS_ITS | Encounter Summary ---
Author Organization [facility] Address [address] [place] [address] Phone Care Team Providers Care Truck Chauffeur Name Role Phone Yovany Sumnerlene Consuelo PAC Primary Care Provider [phone] Encounter Details Date Type Department Care Team (Late st Contact Info) Description 05/22/2024 Telephone [facility] Oncology Services [address] [place] [address] Dilcia Sumner Consuelo, PAC [address] [place] [address] Social History Tobacco Use Types Packs/Day Years [...] Total Score: 0 04/09/19 22 10:12 AM INVENTORY ASSOCIATE AND DRIVER documented as of this encounter Care Teams Truck Chauffeur Relationship Specialty Start Date End Date Dilcia Sumner July, [address] [place] [address] PCP - General Physician Physician General Practice 08/03/23 documented as of this encounter
== END 2024-07-04 09:07 | disposition home or self-care (01) ==
PROVIDERS: Visit Provider Internal Medicine Cardiovascular Disease
DX: R06.00 Dyspnea, unspecified (principal); I10 Essential (primary) hypertension
CPT/HCPCS: 78452; 93017; A9502; J2785